=== PATIENT | female | born 1965 | race Caucasian/White ===

== ENCOUNTER 2016-07-15 05:49 | Emergency (ER) | payer SELFPAY ==
[2016-07-15] MEDS ORDERED: LIDOCAINE 1% INJ-PF (10 MG/ML) 30 ML SDV INJ ONE (07:05)
--- NOTE | 2016-07-15 07:19 | ER Document Report ---
ED General - General Chief Complaint: Abscess Stated Complaint: FACE PAIN Mode of Arrival: Ambulatory Information source: Patient Notes: 51 yr old female presents with complaints of left facial abscess that started over the past 2-3 days. Pt notes she has had multiple outbreaks all over her skin, noted the one of the face has gotten larger. pt denies any fevers or chills TRAVEL OUTSIDE OF THE [place] IN LAST 30 DAYS: No - HPI Onset: Last week Onset/Duration: Persistent Quality of pain: Achy Severity: Mild Pain Level: 1 Associated symptoms: Other Exacerbated by: Denies Relieved by: Denies Similar symptoms previously: No Recently seen / treated by doctor: No - Related Data Allergies/Adverse Reactions: ciprofloxacin [From Cipro] Allergy (Verified 03/22/16 12:02) ciprofloxacin HCl [From Cipro] Allergy (Verified 03/22/16 12:02) gabapentin [Gabapentin] Allergy (Verified 03/22/16 12:02) ketorolac tromethamine [From Toradol] Allergy (Verified 03/22/16 12:02) pregabalin [From Lyrica] Allergy (Verified 03/22/16 12:02) Past Medical History - Social History Smoking Status: Current Every Day Smoker Cigarette use (# per day): Yes Chew tobacco use (# tins/day): No Smoking Education Provided: Yes - Patient counselled regarding cessation for 4 minutes Frequency of alcohol use: Rare Drug Abuse: None Family History: Reviewed & Not Pertinent Patient has suicidal ideation: No Patient has homicidal ideation: No - Past Medical History Cardiac Medical History: Reports: Hx Hypertension Endocrine Medical History: Reports: Hx Diabetes Mellitus Type 2 Renal/ Medical History: Denies: Hx Peritoneal Dialysis Musculoskeltal Medical History: Reports Hx Fibromyalgia Psychiatric Medical History: Reports: Hx Anxiety Past Surgical History: Reports: Hx Section - x2, Hx Hysterectomy, Hx Orthopedic Surgery - Right Knee - Immunizations Hx Diphtheria, Pertussis, Tetanus Vaccination: Yes Review of Systems - Review of Systems Notes: REVIEW OF SYSTEMS: CONSTITUTIONAL : Denies fever, chills, or sweats. Denies recent illness. EENT: Denies eye, ear, throat, or mouth pain or symptoms. Denies nasal or sinus congestion or discharge. Denies throat, tongue, or mouth swelling or difficulty swallowing. CARDIOVASCULAR: Denies chest pain. Denies palpitations or racing or irregular heart beat. Denies ankle edema. RESPIRATORY: Denies cough, cold, or chest congestion. Denies shortness of breath, difficulty breathing, or wheezing. GASTROINTESTINAL: Denies abdominal pain or distention. Denies nausea, vomiting , or diarrhea. Denies blood in vomitus, stools, or per rectum. Denies black, tarry stools. Denies constipation. GENITOURINARY: Denies difficulty urinating, painful urination, burning, frequency, blood in urine, or discharge. FEMALE GENITOURINARY: Denies vaginal bleeding, heavy or abnormal periods, irregular periods. Denies vaginal discharge or odor. MUSCULOSKELETAL: Denies back or neck pain or stiffness. Denies joint pain or swelling. SKIN: Admits to rash facial swelling HEMATOLOGIC : Denies easy bruising or bleeding. LYMPHATIC: Denies swollen, enlarged glands. NEUROLOGICAL: Denies confusion or altered mental status. Denies passing out or loss of consciousness. Denies dizziness or lightheadedness. Denies headache. Denies weakness or paralysis or loss of use of either side. Denies problems with gait or speech. Denies sensory loss, numbness, or tingling. Denies seizures. PSYCHIATRIC: Denies anxiety or stress. Denies depression, suicidal ideation, or homicidal ideation. ALL OTHER SYSTEMS REVIEWED AND NEGATIVE. Dictation was performed using [employer] voice recognition software PHYSICAL EXAMINATION: GENERAL: Well-appearing, well-nourished and in no acute distress. EYES: Pupils equal round and reactive to light, extraocular movements intact, conjunctiva are normal. ENT: Nares patent, oropharynx clear without exudates. Moist mucous membranes. NECK: Normal range of motion, supple without lymphadenopathy LUNGS: Breath sounds clear to auscultation bilaterally and equal. No wheezes rales or rhonchi. HEART: Regular rate and rhythm without murmurs ABDOMEN: Soft, nontender, nondistended abdomen. No guarding, no rebound. No masses appreciated. Female : deferred Musculoskeletal: Normal range of motion, no pitting or edema. No cyanosis. NEUROLOGICAL: Cranial nerves grossly intact. Normal speech, normal gait. Normal sensory, motor exams PSYCH: Normal mood, normal affect. SKIN: Multiple areas of excoriation all throughout the body with left facial abscess measuring 3 x 4 cm left anterior cervical lymph node noted mobile 1 x 1 mm Physical Exam - Vital signs Vitals: Temp Pulse Resp BP Pulse Ox 98.7 F 79 16 145/75 H 95 07/15/16 06:01 07/15/16 06:01 07/15/16 06:01 07/15/16 06:01 07/15/16 06:01 Course - Re-evaluation Re-evalutation: 07/15/16 07:17 With patient's consent area will be anesthetized incised and patient will be started on antibiotics 07/15/16 07:33 After performing a Medical Screening Examination, I estimate there is LOW risk for OPEN FRACTURE, COMPARTMENT SYNDROME, TENDON RUPTURE, ACUTE NEUROVASCULAR INJURY, or RETAINED FOREIGN BODY, thus I consider the discharge disposition reasonable. Also, there is no evidence or peritonitis, sepsis, or toxicity. The patient and I have discussed the diagnosis and risks, and we agree with discharging home with close follow-up with the understanding that symptoms and presentations can change. We also discussed returning to the Emergency Department immediately if new or worsening symptoms occur. We have discussed the symptoms which are most concerning (e.g., changing or worsening pain, fever , numbness, weakness, cool or painful digits) that necessitate immediate return. - Vital Signs Vital signs: Temp Pulse Resp BP Pulse Ox 98.7 F 79 16 145/75 H 95 07/15/16 06:01 07/15/16 06:01 07/15/16 06:01 07/15/16 06:01 07/15/16 06:01 Procedures - Incision and Drainage Left Face Time completed: 07:30 Type: Simple Anesthetic type: 1% Lidocaine mL's of anesthetic: 5 Blade size: 11 I&D procedure: Sterile dressing applied Incision Method: Incision made by scalpel Amount/type of drainage: small pus with blood Discharge - Discharge Clinical Impression: Encounter for smoking cessation counseling, Facial abscess Condition: Stable Disposition: HOME, SELF-CARE Instructions: Abscess ([facility]) Additional Instructions: Follow-up in 2-3 days for reevaluation by her primary care physician or the emergency department or return immediately if there is any worsening symptoms Prescriptions: Cephalexin Monohydrate [Keflex 500 mg Capsule] 500 mg PO QID #40 capsule Mupirocin Calcium [Bactroban Nasal] 1 gm NS BID 10 Days Sulfamethoxazole/Trimethoprim [Bactrim Ds Tablet] 2 each PO BID #40 tablet
[2016-07-15] MEDS ORDERED: OXYCODONE-ACETAMINOPHEN 5-325 MG TABLET PO ONE (07:32)
[2016-07-15 07:39] VITALS: BP 154/79
== END 2016-07-15 07:48 | disposition home or self-care (01) ==
LOC: ER 05:49
PROC: 0H91XZZ Drainage of Face Skin, External Approach (ICD-10-PCS; principal; 2016-07-15)
DX: L02.01 Cutaneous abscess of face (principal); F17.210 Nicotine dependence, cigarettes, uncomplicated; I10 Essential (primary) hypertension; E11.9 Type 2 diabetes mellitus without complications; Z88.3 Allergy status to other anti-infective agents; Z90.710 Acquired absence of both cervix and uterus
CPT/HCPCS: 99406; 99283; 10060; J3490

== ENCOUNTER 2016-10-14 15:14 | Emergency (ER) | payer SELFPAY ==
[2016-10-14 15:19] VITALS: BP 138/75
[2016-10-14] MEDS ORDERED: NORMAL SALINE 1000 ML 1,000 ML IV PRN (16:41)
[2016-10-14] MEDS ORDERED: ONDANSETRON 4 MG TAB.RAPDIS PO ONE (16:42)
[2016-10-14] MEDS ORDERED: MORPHINE SULFATE 10 MG/ML INJ IV PRN (16:43)
--- NOTE | 2016-10-14 16:44 | ER Document Report ---
ED Medical Screen (RME) - General Chief Complaint: Abdominal Pain Stated Complaint: ABDOMINAL PAIN Time Seen by Provider: 10/14/16 16:38 Mode of Arrival: Ambulatory Information source: Patient Notes: This is a 51-year-old female with a history of hypertension, diabetes, fibromyalgia presents to the emergency room with a 2 day history of left CVA and lower abdominal tenderness. Patient denies fever, chills. She had nausea and vomiting. She denies any blood in the stool. TRAVEL OUTSIDE OF THE [place] IN LAST 30 DAYS: No - Related Data Allergies/Adverse Reactions: ciprofloxacin [From Cipro] Allergy (Verified 10/14/16 15:16) ciprofloxacin HCl [From Cipro] Allergy (Verified 10/14/16 15:16) gabapentin [Gabapentin] Allergy (Verified 10/14/16 15:16) ketorolac tromethamine [From Toradol] Allergy (Verified 10/14/16 15:16) pregabalin [From Lyrica] Allergy (Verified 10/14/16 15:16) Past Medical History - Past Medical History Cardiac Medical History: Reports: Hx Hypertension Endocrine Medical History: Reports: Hx Diabetes Mellitus Type 2 Renal/ Medical History: Denies: Hx Peritoneal Dialysis Musculoskeltal Medical History: Reports Hx Fibromyalgia Psychiatric Medical History: Reports: Hx Anxiety Past Surgical History: Reports: Hx Section - x2, Hx Hysterectomy, Hx Orthopedic Surgery - Right Knee - Immunizations Hx Diphtheria, Pertussis, Tetanus Vaccination: Yes Physical Exam - Vital signs Vitals: Temp Pulse Resp BP Pulse Ox 98.1 F 80 20 138/75 H 98 10/14/16 15:16 10/14/16 15:16 10/14/16 15:16 10/14/16 15:16 10/14/16 15:16 Course - Vital Signs Vital signs: Temp Pulse Resp BP Pulse Ox 98.1 F 80 20 138/75 H 98 10/14/16 15:16 10/14/16 15:16 10/14/16 15:16 10/14/16 15:16 10/14/16 15:16
[2016-10-14 17:35] LABS: ABSOLUTE BASOPHILS # (AUTO) 0.1 10^3/uL (0.0-0.2); ABSOLUTE EOSINOPHILS # (AUTO) 0.1 10^3/uL (0.0-0.6); ABSOLUTE LYMPHOCYTES (AUTO) 2.2 10^3/uL (0.5-4.7); ABSOLUTE MONOCYTES (AUTO) 0.3 10^3/uL (0.1-1.4); ABSOLUTE NEUT (AUTO) 6.9 10^3/uL (1.7-8.2); BASOPHILS % (AUTO) 0.6 % (0-2); EOSINOPHILS % (AUTO) 0.6 % (0-6); HEMATOCRIT 49.8 % (36.0-47.0); HGB HCT DIFFERENCE 1.2; LYMPHOCYTES % (AUTO) 22.8 % (13-45); MEAN CORPUSCULAR HEMOGLOBIN 32.9 pg (27.0-33.4); MEAN CORPUSCULAR HGB CONC 34.2 g/dL (32.0-36.0); MEAN CORPUSCULAR VOLUME 96 fl (80-97); MONOCYTES % (AUTO) 3.4 % (3-13); RED BLOOD COUNT 5.18 10^6/uL (3.72-5.28); SEGMENTED NEUTROPHILS % (AUTO) 72.6 % (42-78); WHITE BLOOD COUNT 9.5 10^3/uL (4.0-10.5)
[2016-10-14 17:41] LABS: APPEARANCE,URINE SLIGHTLY-CLOUDY; BILIRUBIN,URINE NEGATIVE (NEGATIVE); GLUCOSE, URINE NEGATIVE (NEGATIVE); KETONES,URINE TRACE mg/dL (NEGATIVE); LEUKOCYTE ESTERASE,URINE NEGATIVE (NEGATIVE); NITRITE,URINE NEGATIVE (NEGATIVE); PROTEIN,URINE NEGATIVE (NEGATIVE); URINE SPECIFIC GRAVITY 1.028; UROBILINOGEN,URINE NEGATIVE mg/dL (<2.0)
--- NOTE | 2016-10-14 18:39 | ER Document Report ---
ED GI/ - General Chief Complaint: Abdominal Pain Stated Complaint: ABDOMINAL PAIN Time Seen by Provider: 10/14/16 16:38 Mode of Arrival: Ambulatory Notes: Patient is a 51-year-old female, past medical history fibromyalgia, uterine cancer status post complete hysterectomy and oophrectomy, presents with 1 day of left flank pain radiating into her groin. She has had this in the past and no cause was found. She is taking oxycodone 10 mg 4 times a day for her chronic fibromyalgia pain, but she said that this is not helping her pain today. She denies hematuria, fevers, nausea, vomiting, diarrhea, constipation, chest pain or shortness of breath. TRAVEL OUTSIDE OF THE [place] IN LAST 30 DAYS: No - Related Data Allergies/Adverse Reactions: ciprofloxacin [From Cipro] Allergy (Verified 10/14/16 15:16) ciprofloxacin HCl [From Cipro] Allergy (Verified 10/14/16 15:16) gabapentin [Gabapentin] Allergy (Verified 10/14/16 15:16) ketorolac tromethamine [From Toradol] Allergy (Verified 10/14/16 15:16) pregabalin [From Lyrica] Allergy (Verified 10/14/16 15:16) Past Medical History - General Information source: Patient - Social History Smoking Status: Unknown if Ever Smoked Family History: Reviewed & Not Pertinent Patient has suicidal ideation: No Patient has homicidal ideation: No - Past Medical History Cardiac Medical History: Reports: Hx Hypertension Endocrine Medical History: Reports: Hx Diabetes Mellitus Type 2 Renal/ Medical History: Denies: Hx Peritoneal Dialysis Musculoskeltal Medical History: Reports Hx Fibromyalgia Psychiatric Medical History: Reports: Hx Anxiety Past Surgical History: Reports: Hx Section - x2, Hx Hysterectomy, Hx Orthopedic Surgery - Right Knee - Immunizations Hx Diphtheria, Pertussis, Tetanus Vaccination: Yes Review of Systems - Review of Systems Notes: REVIEW OF SYSTEMS: CONSTITUTIONAL: -fevers, -chills EENT: -eye pain, -difficulty swallowing, -nasal congestion CARDIOVASCULAR:-chest pain, -syncope. RESPIRATORY: -cough, -SOB GASTROINTESTINAL: +abdominal pain, - nausea, -vomiting, -diarrhea GENITOURINARY: -dysuria, -hematuria MUSCULOSKELETAL: +left flank pain, -neck pain SKIN: -rash or skin lesions. HEMATOLOGIC: -easy bruising or bleeding. LYMPHATIC: -swollen, enlarged glands. NEUROLOGICAL: -altered mental status or loss of consciousness, -headache, - neurologic symptoms PSYCHIATRIC: -anxiety, -depression. ALL OTHER SYSTEMS REVIEWED AND NEGATIVE. Physical Exam - Vital signs Vitals: Temp Pulse Resp BP Pulse Ox 98.1 F 80 20 138/75 H 98 10/14/16 15:16 10/14/16 15:16 10/14/16 15:16 10/14/16 15:16 10/14/16 15:16 - Notes Notes: PHYSICAL EXAMINATION: GENERAL: Well-appearing, well-nourished and in no acute distress. HEAD: Atraumatic, normocephalic. EYES: Pupils equal round and reactive to light, extraocular movements intact, sclera anicteric, conjunctiva are normal. ENT: nares patent, oropharynx clear without exudates. Moist mucous membranes. NECK: Normal range of motion, supple without lymphadenopathy LUNGS: Breath sounds clear to auscultation bilaterally and equal. No wheezes rales or rhonchi. HEART: Regular rate and rhythm without murmurs ABDOMEN: Soft, nontender, normoactive bowel sounds. No guarding, no rebound. No masses appreciated. EXTREMITIES: Normal range of motion, no pitting or edema. No cyanosis. NEUROLOGICAL: Cranial nerves grossly intact. Normal speech, normal gait. Normal sensory and motor exams. PSYCH: Normal mood, normal affect. SKIN: Warm, Dry, normal turgor, no rashes or lesions noted. Course - Re-evaluation Re-evalutation: Patient with left flank pain radiating into groin. Her labs, urine and CT abdomen pelvis do not show any evidence of stones or other acute processes. Will provide patient with Bentyl to help with any spasming and have her follow- up with her primary care physician. She has oxycodone at home that she takes. Pt has received a letter from the ER about narcotic prescribing guidelines. Will also provide her with Zofran to help with any nausea. - Vital Signs Vital signs: Temp Pulse Resp BP Pulse Ox 98.1 F 80 20 138/75 H 98 10/14/16 15:16 10/14/16 15:16 10/14/16 15:16 10/14/16 15:16 10/14/16 15:16 - Laboratory Result Diagrams: 10/14/16 17:15 10/14/16 18:11 Laboratory results interpreted by me: 10/14/16 10/14/16 10/14/16 17:15 17:15 18:11 Hgb 17.0 H Hct 49.8 H Glucose 158 H Urine Ketones TRACE H - Diagnostic Test Radiology reviewed: Image reviewed, Reports reviewed Radiology results interpreted by me: CT A/P: NAD Discharge - Discharge Clinical Impression: Abdominal pain Qualifiers: Abdominal location: unspecified location Qualified Code(s): R10.9 - Unspecified abdominal pain Condition: Stable Disposition: HOME, SELF-CARE Additional Instructions: Your labs, urine and CAT scan did not show any evidence of emergent processes today. You must follow-up with your primary care physician for further evaluation and treatment. You may take Bentyl to help with any abdominal pain and Zofran to help with any nausea and vomiting. ABDOMINAL PAIN: There are many causes of abdominal pain. Pain can mean a serious problem requiring surgery (such as appendicitis). It can also be an innocent problem that goes away on its own (such as a viral infection). Often, time must pass to determine the cause of pain. The physician does not feel that hospitalization is necessary, at present. Things may change within the next 24 hours. Call the doctor or come back for re- examination if any problems occur, such as: (1) Pain that becomes more severe, steady, or becomes concentrated in one specific area. Also, pain that is more severe with movement or coughing. (2) Vomiting that persists or becomes more frequent. (3) Blood in the vomitus, urine, or bowel movements. Blood in the stool may have a tarry or black appearance. (4) Shaking chills or fever greater than 100 degrees F. (5) The abdomen becomes more distended or swollen. (6) Bowel movements cease. (7) Failure to improve as expected. NORMAL EXAM AND WORKUP: At this time, your examination and workup show no significant abnormality. No significant abnormal physical findings are noted. All laboratory, EKG, and imaging (x-ray, CT scans, ultrasound) studies that were ordered show no significant abnormality. Although your examination and all studies that were ordered showed no significant abnormal finding, there are no examinations and no studies that are 100% accurate. There is always the possibility that some abnormality could exist and not be detected with physical examination or within the limits and capabilities of laboratory and other studies. You should return or follow up as you were instructed on your visit today for further evaluation if your symptoms do not resolve. PAIN MEDICATION INJECTION: You have received an injection of a pain medication. You should experience significant pain relief within 45 minutes. This drug is a narcotic - - it will impair your judgement, slow your reaction time and make you sleepy ( as well as relieve your pain). Narcotics also can cause nausea. You should not drive, work with machinery, or perform any task requiring mental alertness until all effects of the medication are gone -- six to eight hours. Do not take any alcohol, or sedatives, and do not take any other medication without checking with your physician. ANTINAUSEA MEDICATION: You have been given a medication to suppress nausea and vomiting. This type of medication can be given as a shot, pill, or suppository. It will usually last for many hours. Pills and shots usually last six to eight hours, suppositories last about 12 hours. For the typical illness, only one or two doses of the medication may be necessary. Mild lightheadedness may occur. This type of medicine can cause drowsiness. Do not drive or operate dangerous machinery while under its influence. Do not mix with alcohol. See your doctor at once if you have muscle spasms or tightness, or uncontrollable motions (particularly of the neck, mouth, or jaw). Persistent vomiting or severe lightheadedness should also be evaluated by the physician. ANTISPASMODICS: You have been given a prescription for an antispasmodic medicine. This type of drug is used to decrease cramping and pain in the intestines. It is also used to decrease secretion of internal fluids (such as stomach acid in ulcer disease or pancreatic juice in pancreas disease). This medicine may cause drowsiness, especially with the first dose. Do not operate machinery or drive until all side effects have resolved. Do not combine with alcohol. Other common side effects include dry mouth and eyes. In older persons, antispasmodics can occasionally cause urinary retention, constipation, or trouble focusing the eyes. Glaucoma may be worsened by this medicine. FOLLOW-UP CARE: If you have been referred to a physician for follow-up care, call the physician s office for an appointment as you were instructed or within the next two days. If you experience worsening or a significant change in your symptoms, notify the physician immediately or return to the Emergency Department at any time for re-evaluation. Prescriptions: Dicyclomine HCl [Bentyl 20 mg Tablet] 20 mg PO QID #20 tablet Ondansetron [Zofran Odt 4 mg Tablet] 1 - 2 tab PO Q4H PRN #15 tab.rapdis PRN Reason: For Nausea/Vomiting Referrals: JET SLADE MD [ACTIVE STAFF] - Follow up as needed
[2016-10-14 18:45] LABS: ALANINE AMINOTRANSFERASE 31 U/L (9-52); ALBUMIN 4.1 g/dL (3.5-5.0); ALKALINE PHOSPHATASE 61 U/L (38-126); ANION GAP 11 (5-19); ASPARTATE AMINO TRANSFERASE 27 U/L (14-36); BILIRUBIN,DIRECT 0.4 mg/dL (0.0-0.4); BILIRUBIN,TOTAL 0.8 mg/dL (0.2-1.3); BLOOD UREA NITROGEN 13 mg/dL (7-20); CALCIUM 9.6 mg/dL (8.4-10.2); CARBON DIOXIDE 24 mmol/L (22-30); CHLORIDE 105 mmol/L (98-107); CREATININE RESULT 0.85 mg/dL (0.52-1.25); GLUCOSE 158 mg/dL (75-110); LIPASE 200.9 U/L (23-300); POTASSIUM 4.8 mmol/L (3.6-5.0); SODIUM 139.8 mmol/L (137-145); TOTAL PROTEIN 7.2 g/dL (6.3-8.2)
[2016-10-14] MEDS ORDERED: MORPHINE SULFATE 10 MG/ML INJ IV ONE (19:04)
--- NOTE | 2016-10-14 19:13 | RADIOLOGY REPORT (SQ) ---
EXAM DESCRIPTION: CT ABD/PELVIS NO ORAL OR IV COMPLETED DATE/TIME: 10/14/2016 6:59 pm REASON FOR STUDY: left flank pain, Hx stones COMPARISON: 04/01/2016 TECHNIQUE: CT scan of the abdomen and pelvis performed without intravenous or oral contrast. Images reviewed with lung, soft tissue, and bone windows. Reconstructed coronal and sagittal MPR images revi ewed. All images stored on PACS. All CT scanners at this facility use dose modulation, iterative reconstruction, and/or weight based d osing when appropriate to reduce radiation dose to as low as reasonably achievable (ALARA). [facility]: Dose Right [facility]: CareDose [facility]: Dose Right [facility]: Teradose 4D [facility]: Smart Traity RADIATION DOSE: Up-to-date CT equipment and radiation dose reduction techniques were employed. CTDIv ol: 20.4 mGy. DLP: 1144 mGy-cm.mGy. LIMITATIONS: None. FINDINGS: LOWER CHEST: No significant findings. No nodules or infiltrates. NON-CONTRASTED LIVER, SPLEEN, ADRENALS: Evaluation limited by lack of IV contrast. No identified sign ificant masses. PANCREAS: No masses. No peripancreatic inflammatory changes. GALLBLADDER: No identified stones by CT criteria. No inflammatory changes to suggest cholecystitis. RIGHT KIDNEY AND URETER: No suspicious masses. Assessment limited by lack of IV contrast. No signif icant calcifications. No hydronephrosis or hydroureter. LEFT KIDNEY AND URETER: No suspicious masses. Assessment limited by lack of IV contrast. No signifi cant calcifications. No hydronephrosis or hydroureter. AORTA AND RETROPERITONEUM: No aneurysm. No retroperitoneal masses or adenopathy. BOWEL AND PERITONEAL CAVITY: No obvious masses or inflammatory changes. No free fluid. APPENDIX: Normal. PELVIS, BLADDER, AND ABDOMINAL WALL:Prior hysterectomy. No free fluid. Bladder normal. BONES: No acute findings. OTHER: No other significant finding. IMPRESSION: NO ACUTE PROCESS IN THE ABDOMEN OR PELVIS. TECHNICAL DOCUMENTATION: JOB ID: [id number] Quality ID # [id number]: Final reports with documentation of one or more dose reduction techniques (e.g., Au tomated exposure control, adjustment of the mA and/or kV according to patient size, use of iterative reconstruction technique) 2010 [facility]- All Rights Reserved
== END 2016-10-14 19:25 | disposition home or self-care (01) ==
LOC: ER 15:14
DX: R10.9 Unspecified abdominal pain (principal); M79.7 Fibromyalgia
CPT/HCPCS: 96376; 99284; 96361; 96374; 36415; 83690; 85025; 80053; 81001; 74176; S0119; J2270; J7030

== ENCOUNTER 2016-10-17 06:26 | Emergency (ER) | payer SELFPAY ==
--- NOTE | 2016-10-17 07:03 | ER Document Report ---
ED General - General Mode of Arrival: Ambulatory Information source: Patient TRAVEL OUTSIDE OF THE [place] IN LAST 30 DAYS: No - HPI Onset: Other - see narrative Associated symptoms: Nausea Similar symptoms previously: Yes Recently seen / treated by doctor: Yes - General Chief Complaint: Flank Pain Stated Complaint: LEFT FLANK/BACK PAIN Time Seen by Provider: 10/17/16 06:41 Notes: Patient is a 51-year-old female with a history of fibromyalgia, uterine cancer status post complete hysterectomy/oophorectomy, and chronic pain who presents to the emergency department today with complaints of four days of left-sided back pain which is described as "labor pain". Patient was seen in this emergency department 3 days ago for this same complaint and had an extensive workup done including labs, urine, CT all of which were negative. Patient states she did not follow up with her family doctor as instructed because she "does not have insurance and can only see her once a month". Patient is on 30 mg of oxycodone daily which she states is "not enough to control this pain". Patient states she cannot take Toradol because when she has taken it in the past it "caused shortness of breath and heart palpitations". Patient states she feels nauseated but denies vomiting. Patient denies any trauma to the area. (JACK JAMISON) - Related Data Allergies/Adverse Reactions: ciprofloxacin [From Cipro] Allergy (Verified 10/14/16 15:16) ciprofloxacin HCl [From Cipro] Allergy (Verified 10/14/16 15:16) gabapentin [Gabapentin] Allergy (Verified 10/14/16 15:16) ketorolac tromethamine [From Toradol] Allergy (Verified 10/14/16 15:16) pregabalin [From Lyrica] Allergy (Verified 10/14/16 15:16) Past Medical History - General Information source: Patient, [facility] Records - Social History Smoking Status: Unknown if Ever Smoked Frequency of alcohol use: None Drug Abuse: None Family History: Reviewed & Not Pertinent - Past Medical History Cardiac Medical History: Reports: Hx Hypertension Endocrine Medical History: Reports: Hx Diabetes Mellitus Type 2 Malignancy Medical History: Reports: Other - uterine cancer Musculoskeltal Medical History: Reports Hx Fibromyalgia Psychiatric Medical History: Reports: Hx Anxiety Past Surgical History: Reports: Hx Section - x2, Hx Hysterectomy - Oophorectomy, Hx Orthopedic Surgery - Right Knee - Immunizations Hx Diphtheria, Pertussis, Tetanus Vaccination: Yes Review of Systems - Review of Systems Constitutional: No symptoms reported EENT: No symptoms reported Cardiovascular: No symptoms reported Respiratory: No symptoms reported Gastrointestinal: See HPI, Nausea. denies: Vomiting Genitourinary: See HPI, Flank pain - left Female Genitourinary: No symptoms reported Musculoskeletal: See HPI, Back pain - left Skin: No symptoms reported Hematologic/Lymphatic: No symptoms reported Neurological/Psychological: No symptoms reported -: Yes All other systems reviewed and negative Physical Exam - Vital signs Vitals: Temp Pulse Ox 97.5 F 98 10/17/16 06:44 10/17/16 06:44 - Notes Notes: Physical Exam: General: Alert. HEENT: Normocephalic. Atraumatic. PERRL. Extraocular movements intact. Oropharynx clear. Neck: Supple. Non-tender. Respiratory: No respiratory distress. Clear and equal breath sounds bilaterally. Cardiovascular: Regular rate and rhythm. Abdominal: Obese. Non-tender. No distension. Normal Bowel Sounds. Back: Non-tender. No deformity or step off. No midline tenderness with palpation. Negative Robson's test. Minimal left sided paraspinal musculature tenderness with palpation. Extremities: Moves all four extremities. Upper extremities: Normal inspection. Normal ROM. Lower extremities: Normal inspection. No edema. Normal ROM. Neurological: Normal cognition. AAOx4. Normal speech. Psychological: Normal affect. Normal Mood. Skin: Warm. Dry. Normal color. No rashes appreciated. (JACK JAMISON) Discharge - Discharge Clinical Impression: Back pain, History of chronic pain on opioids Condition: Stable Disposition: HOME, SELF-CARE Additional Instructions: Flank Pain We weren't able to prove an exact cause for your flank pain. Pain in the flank can be caused by a muscle strain or spasm. Sometimes a kidney stone causes pain, but can't be found on our tests. Infection in the kidney should be evident on a urine test. Early shingles can occasionally cause flank pain, without the rash that proves the diagnosis. On rare occasions, disease of the pancreas, aorta, spleen, or colon can create pain in the flank. At this time, there's no evidence of a dangerous condition, and it seems safe for you to be at home. If the pain goes away and does not come back, no further testing will be needed. If pain persists, or becomes more severe, we may need to repeat some tests or order additional new testing. Blood in the urine, urgency to urinate frequently, and pain that radiates to the groin can indicate a kidney stone. Fever may mean that the pain is due to infection, either of the kidney or the colon (diverticulitis). If your pain is early shingles, you should develop an eruption of blisters in the painful area within a few days. Call the doctor or return if you have pain that is spreading or becoming more severe, pain that does not resolve with time, fever, or any other new symptoms. Prescriptions: Cyclobenzaprine HCl [Flexeril 10 mg Tablet] 10 mg PO TIDP PRN #15 tab PRN Reason: Lidocaine [Lidoderm 5% (700 mg) Transdermal Patch] 1 patch TP DAILY #15 adh..patch Forms: Elevated Blood Pressure Scribe Attestation: 10/17/16 07:15 I personally performed the services described in the documentation reviewed the documentation recorded by my scribe in my presence and it accurately and completely records my words and actions (CHERELLE GA) Scribe Documentation - Scribe Written by Willam:: Willam Mckeon, 10/17/2016 0758 acting as scribe for :: Mundo
[2016-10-17] MEDS ORDERED: METOCLOPRAMIDE HCL 10 MG TABLET PO ONE (07:10)
[2016-10-17] MEDS ORDERED: ATENOLOL 50 MG TABLET PO ONE (07:10)
[2016-10-17] MEDS ORDERED: CYCLOBENZAPRINE HCL 10 MG TABLET PO ONE (07:11)
[2016-10-17 07:38] VITALS: BP 133/72
== END 2016-10-17 07:37 | disposition home or self-care (01) ==
LOC: ER 06:26
DX: M54.9 Dorsalgia, unspecified (principal); G89.29 Other chronic pain; R10.9 Unspecified abdominal pain
CPT/HCPCS: 99283

== ENCOUNTER 2016-10-17 08:07 | Emergency (ER) | payer SELFPAY ==
[2016-10-17 08:31] VITALS: BP 149/86
[2016-10-17 08:56] LABS: ABSOLUTE BASOPHILS # (AUTO) 0.1 10^3/uL (0.0-0.2); ABSOLUTE EOSINOPHILS # (AUTO) 0.1 10^3/uL (0.0-0.6); ABSOLUTE LYMPHOCYTES (AUTO) 2.6 10^3/uL (0.5-4.7); ABSOLUTE MONOCYTES (AUTO) 0.3 10^3/uL (0.1-1.4); ABSOLUTE NEUT (AUTO) 4.4 10^3/uL (1.7-8.2); BASOPHILS % (AUTO) 0.8 % (0-2); EOSINOPHILS % (AUTO) 1.1 % (0-6); HEMATOCRIT 44.6 % (36.0-47.0); HEMOGLOBIN 15.1 g/dL (12.0-15.5); HGB HCT DIFFERENCE 0.7; MEAN CORPUSCULAR HEMOGLOBIN 32.7 pg (27.0-33.4); MEAN CORPUSCULAR HGB CONC 33.7 g/dL (32.0-36.0); MEAN CORPUSCULAR VOLUME 97 fl (80-97); MONOCYTES % (AUTO) 4.3 % (3-13); RED CELL DISTRIBUTION WIDTH 13.2 % (11.5-14.0); SEGMENTED NEUTROPHILS % (AUTO) 58.8 % (42-78); WHITE BLOOD COUNT 7.5 10^3/uL (4.0-10.5)
[2016-10-17 09:15] LABS: ALANINE AMINOTRANSFERASE 23 U/L (9-52); ALKALINE PHOSPHATASE 64 U/L (38-126); ANION GAP 9 (5-19); ASPARTATE AMINO TRANSFERASE 16 U/L (14-36); BILIRUBIN,DIRECT 0.3 mg/dL (0.0-0.4); BILIRUBIN,TOTAL 0.5 mg/dL (0.2-1.3); BLOOD UREA NITROGEN 14 mg/dL (7-20); CALCIUM 9.5 mg/dL (8.4-10.2); CARBON DIOXIDE 29 mmol/L (22-30); CHLORIDE 102 mmol/L (98-107); CREATINE KINASE 28 U/L (30-135); GLUCOSE 157 mg/dL (75-110); POTASSIUM 4.4 mmol/L (3.6-5.0); SODIUM 139.7 mmol/L (137-145); TOTAL PROTEIN 7.4 g/dL (6.3-8.2)
[2016-10-17 09:26] LABS: CREATINE KINASE MB 0.22 ng/mL (<4.55)
[2016-10-17 09:27] LABS: TROPONIN I < 0.012 ng/mL
--- NOTE | 2016-10-17 09:28 | RADIOLOGY REPORT (SQ) ---
EXAM DESCRIPTION: CHEST SINGLE VIEW COMPLETED DATE/TIME: 10/17/2016 9:12 am REASON FOR STUDY: CHEST PAIN COMPARISON: None. EXAM PARAMETERS: NUMBER OF VIEWS: One view. TECHNIQUE: Single frontal radiographic view of the chest acquired. RADIATION DOSE: NA LIMITATIONS: None. FINDINGS: LUNGS AND PLEURA: No opacities, masses or pneumothorax. No pleural effusion. MEDIASTINUM AND HILAR STRUCTURES: No masses. Contour normal. HEART AND VASCULAR STRUCTURES: Heart normal in size. Normal vasculature. BONES: No acute findings. HARDWARE: None in the chest. OTHER: No other significant finding. IMPRESSION: NO ACUTE RADIOGRAPHIC FINDING IN THE CHEST. TECHNICAL DOCUMENTATION: JOB ID: [id number]
--- NOTE | 2016-10-17 09:53 | ER Document Report ---
ED Medical Screen (RME) - General Chief Complaint: Chest Pain Stated Complaint: CHEST PAIN Time Seen by Provider: 10/17/16 09:43 TRAVEL OUTSIDE OF THE [place] IN LAST 30 DAYS: No - HPI Notes: 10/17/16 09:53 Patient seen earlier this morning for flank pain discharge. Patient returning after experiencing left-sided tingling and neck pain. Increased with movement - Related Data Allergies/Adverse Reactions: ciprofloxacin [From Cipro] Allergy (Verified 10/14/16 15:16) ciprofloxacin HCl [From Cipro] Allergy (Verified 10/14/16 15:16) gabapentin [Gabapentin] Allergy (Verified 10/14/16 15:16) ketorolac tromethamine [From Toradol] Allergy (Verified 10/14/16 15:16) pregabalin [From Lyrica] Allergy (Verified 10/14/16 15:16) Past Medical History - Social History Chew tobacco use (# tins/day): No Frequency of alcohol use: None Drug Abuse: None - Past Medical History Cardiac Medical History: Reports: Hx Hypertension Endocrine Medical History: Reports: Hx Diabetes Mellitus Type 2 Renal/ Medical History: Denies: Hx Peritoneal Dialysis Musculoskeltal Medical History: Reports Hx Fibromyalgia Psychiatric Medical History: Reports: Hx Anxiety Past Surgical History: Reports: Hx Section - x2, Hx Hysterectomy, Hx Orthopedic Surgery - Right Knee - Immunizations Hx Diphtheria, Pertussis, Tetanus Vaccination: Yes Review of Systems - Review of Systems Cardiovascular: Other - left arm tingling chest wall pain Physical Exam - Vital signs Vitals: Temp Pulse Resp BP Pulse Ox 97.9 F 56 L 14 149/86 H 95 10/17/16 08:27 10/17/16 08:27 10/17/16 08:27 10/17/16 08:27 10/17/16 08:27 - Cardiovascular Rhythm: Regular Heart sounds: Normal auscultation Course - Vital Signs Vital signs: Temp Pulse Resp BP Pulse Ox 97.9 F 56 L 14 149/86 H 95 10/17/16 08:27 10/17/16 08:27 10/17/16 08:27 10/17/16 08:27 10/17/16 08:27 - Laboratory Result Diagrams: 10/17/16 08:35 10/17/16 08:35 Laboratory results interpreted by me: 10/17/16 08:35 Glucose 157 H Creatine Kinase 28 L
[2016-10-17] MEDS ORDERED: ACETAMINOPHEN 325 MG TABLET PO ONE (10:13)
--- NOTE | 2016-10-17 17:39 | EKG REPORT ---
SEVERITY:- NORMAL ECG - SINUS RHYTHM : Confirmed by: Vandana Brown 17-Oct-2016 17:38:25
== END 2016-10-17 09:58 | disposition left against medical advice (07) ==
LOC: ER 08:07
DX: Z53.9 Procedure and treatment not carried out, unspecified reason (principal); R07.9 Chest pain, unspecified; R10.9 Unspecified abdominal pain; M54.2 Cervicalgia
CPT/HCPCS: 36415; 71010; 80053; 82550; 82553; 84484; 85025; 93005; 93010; 99281

== ENCOUNTER 2017-02-17 06:21 | Emergency (ER) | payer SELFPAY ==
[2017-02-17] MEDS ORDERED: ONDANSETRON HCL INJ/PF 4 MG/2 ML SDV IV ONE (07:29)
[2017-02-17] MEDS ORDERED: DICYCLOMINE HCL INJ 20 MG/2 ML AMPULE IM ONE (07:41)
[2017-02-17] MEDS ORDERED: NORMAL SALINE 1000 ML 1,000 ML IV ONE (07:41)
[2017-02-17 07:52] LABS: ABSOLUTE BASOPHILS # (AUTO) 0.1 10^3/uL (0.0-0.2); ABSOLUTE EOSINOPHILS # (AUTO) 0.1 10^3/uL (0.0-0.6); ABSOLUTE LYMPHOCYTES (AUTO) 2.6 10^3/uL (0.5-4.7); ABSOLUTE MONOCYTES (AUTO) 0.4 10^3/uL (0.1-1.4); BASOPHILS % (AUTO) 1.1 % (0-2); EOSINOPHILS % (AUTO) 0.9 % (0-6); HEMATOCRIT 46.7 % (36.0-47.0); HEMOGLOBIN 16.5 g/dL (12.0-15.5); HGB HCT DIFFERENCE 2.8; LYMPHOCYTES % (AUTO) 31.8 % (13-45); MEAN CORPUSCULAR HGB CONC 35.2 g/dL (32.0-36.0); MEAN CORPUSCULAR VOLUME 97 fl (80-97); MONOCYTES % (AUTO) 4.4 % (3-13); RED BLOOD COUNT 4.84 10^6/uL (3.72-5.28); RED CELL DISTRIBUTION WIDTH 13.3 % (11.5-14.0); SEGMENTED NEUTROPHILS % (AUTO) 61.8 % (42-78); WHITE BLOOD COUNT 8.1 10^3/uL (4.0-10.5)
--- NOTE | 2017-02-17 07:54 | ER Document Report ---
ED General - General Chief Complaint: Abdominal Pain Stated Complaint: ABDOMINAL PAIN Time Seen by Provider: 02/17/17 06:57 TRAVEL OUTSIDE OF THE [place] IN LAST 30 DAYS: No - HPI Patient complains to provider of: Abdominal pain Notes: Patient coming in for lower abdominal pain ongoing for the last 2 weeks. Patient states recently seen by physician thought she had a UTI finished a 5 day course of Keflex states is better 3 days afterwards however pain continues at this time. Patient states she has had some blood in her urine today. Patient states recently had a hysterectomy approximately 1 year ago. Patient otherwise denies any other past medical problems denies fevers chills nausea vomiting states last bowel movement was this morning. - Related Data Allergies/Adverse Reactions: ciprofloxacin [From Cipro] Allergy (Verified 10/14/16 15:16) ciprofloxacin HCl [From Cipro] Allergy (Verified 10/14/16 15:16) gabapentin [Gabapentin] Allergy (Verified 10/14/16 15:16) ketorolac tromethamine [From Toradol] Allergy (Verified 10/14/16 15:16) pregabalin [From Lyrica] Allergy (Verified 10/14/16 15:16) Past Medical History - Social History Smoking Status: Current Every Day Smoker Chew tobacco use (# tins/day): No Frequency of alcohol use: None Drug Abuse: None Family History: Reviewed & Not Pertinent Patient has suicidal ideation: No Patient has homicidal ideation: No - Past Medical History Cardiac Medical History: Reports: Hx Hypertension Endocrine Medical History: Reports: Hx Diabetes Mellitus Type 2 Renal/ Medical History: Denies: Hx Peritoneal Dialysis Musculoskeltal Medical History: Reports Hx Fibromyalgia Psychiatric Medical History: Reports: Hx Anxiety Past Surgical History: Reports: Hx Section - x2, Hx Hysterectomy, Hx Orthopedic Surgery - Right Knee - Immunizations Hx Diphtheria, Pertussis, Tetanus Vaccination: Yes Review of Systems - Review of Systems Constitutional: No symptoms reported EENT: No symptoms reported Cardiovascular: No symptoms reported Respiratory: No symptoms reported Gastrointestinal: Abdominal pain Genitourinary: No symptoms reported Female Genitourinary: No symptoms reported Musculoskeletal: No symptoms reported Skin: No symptoms reported Hematologic/Lymphatic: No symptoms reported Neurological/Psychological: No symptoms reported -: Yes All other systems reviewed and negative Physical Exam - Vital signs Vitals: Temp Pulse Resp BP Pulse Ox 98.2 F 77 18 171/85 H 98 02/17/17 06:26 02/17/17 06:26 02/17/17 06:26 02/17/17 06:26 02/17/17 06:26 Interpretation: Normal - General General appearance: Appears well, Alert - HEENT Head: Normocephalic, Atraumatic Eyes: Normal Pupils: PERRL - Respiratory Respiratory status: No respiratory distress Chest status: Nontender Breath sounds: Normal Chest palpation: Normal - Cardiovascular Rhythm: Regular Heart sounds: Normal auscultation Murmur: No - Abdominal Inspection: Obese Distension: No distension Bowel sounds: Normal Tenderness: Nontender Organomegaly: No organomegaly - Back Back: Normal, Nontender - Extremities General upper extremity: Normal inspection, Nontender, Normal color, Normal ROM , Normal temperature General lower extremity: Normal inspection, Nontender, Normal color, Normal ROM , Normal temperature, Normal weight bearing. No: Jose Enrique's sign - Neurological Neuro grossly intact: Yes Cognition: Normal Orientation: AAOx4 Evans Coma Scale Eye Opening: Spontaneous Evans Coma Scale Verbal: Oriented Brooke Coma Scale Motor: Obeys Commands Brooke Coma Scale Total: 15 Speech: Normal Motor strength normal: LUE, RUE, LLE, RLE Sensory: Normal - Psychological Associated symptoms: Normal affect, Normal mood - Skin Skin Temperature: Warm Skin Moisture: Dry Skin Color: Normal Course - Re-evaluation Re-evalutation: 02/17/17 07:52 Reviewed patient's past visits show multiple abdominal CTs that have all been read as negative. No signs of diverticulosis diverticulitis on any of the CT scans. Evaluation is not consistent with any bowel pathology. Will wait for urinalysis and laboratory studies. Patient looks to be on chronic pain management 02/17/17 08:42 Patient states continues to have pain. Explained patient she can take her pain medication at home. Laboratory studies and x-ray did not show any significant pathology. Long discussion with patient is that she states that she is concerned that she had a hysterectomy due to endometrial cancer has been losing weight. This is a conference patient has a 7 kg weight loss since September. Reassured patient otherwise laboratory studies here x-ray and examination did not reveal any critical pathology that would warrant a CAT scan at this time. Patient was encouraged follow-up with PCP for GI follow-up. Patient states understanding and otherwise states she is frustrated. Patient requested to be admitted to have a colonoscopy done to see GI I explained to the patient that with her negative workup at this time more likely the hospitalist will not admit the patient also explained to the patient she has had multiple recent CAT scans this year that have all returned negative. Again laboratory studies not show any critical pathology encouraged patient follow-up with PCP and GI specialist. The patient presents with abdominal pain without signs of peritonitis or other life-threatening or serious etiology. The patient appears stable for discharge and has been instructed to return immediately if the symptoms worsen in any way, or in 8-12hr if not improved for re-evaluation. The patient has been instructed to return if the symptoms worsen or change in any way. 02/17/17 08:45 - Vital Signs Vital signs: Temp Pulse Resp BP Pulse Ox 98.2 F 77 18 171/85 H 98 02/17/17 06:26 02/17/17 06:26 02/17/17 06:26 02/17/17 06:26 02/17/17 06:26 - Laboratory Result Diagrams: 02/17/17 07:38 02/17/17 07:38 Laboratory results interpreted by me: 02/17/17 02/17/17 07:38 07:38 Hgb 16.5 H MCH 34.0 H BUN 6 L Glucose 158 H AST 13 L Discharge - Discharge Clinical Impression: Abdominal pain Qualifiers: Abdominal location: unspecified location Qualified Code(s): R10.9 - Unspecified abdominal pain Instructions: Abdominal Pain ([facility]) Additional Instructions: Laboratory studies not reveal any signs of significant pathology for your abdominal pain. X-ray of her abdomen was also negative. Please follow-up with your primary care physician. I will have our licensed clinical social worker contact you for a follow-up assistance. Please continue your home prescribed meds. You may take the Zofran and Bentyl prescribed for nausea and pain. Prescriptions: Dicyclomine HCl [Bentyl 20 mg Tablet] 20 mg PO QID #40 tablet Ondansetron [Zofran Odt 4 mg Tablet] 1 - 2 tab PO Q4H PRN #30 tab.rapdis PRN Reason: For Nausea/Vomiting Referrals: ÁNGEL HERNANDEZ PA-C [Primary Care Provider] - Follow up as needed WINSTON COOPER MD [ACTIVE STAFF] - Follow up as needed
[2017-02-17 07:56] LABS: APPEARANCE,URINE SLIGHTLY-CLOUDY; BILIRUBIN,URINE NEGATIVE (NEGATIVE); GLUCOSE, URINE NEGATIVE (NEGATIVE); KETONES,URINE NEGATIVE (NEGATIVE); LEUKOCYTE ESTERASE,URINE NEGATIVE (NEGATIVE); NITRITE,URINE NEGATIVE (NEGATIVE); PROTEIN,URINE NEGATIVE (NEGATIVE); URINE SPECIFIC GRAVITY 1.006; UROBILINOGEN,URINE NEGATIVE mg/dL (<2.0)
[2017-02-17 08:02] LABS: ALANINE AMINOTRANSFERASE 33 U/L (9-52); ALBUMIN 3.9 g/dL (3.5-5.0); ALKALINE PHOSPHATASE 66 U/L (38-126); ANION GAP 11 (5-19); ASPARTATE AMINO TRANSFERASE 13 U/L (14-36); BILIRUBIN,DIRECT 0.4 mg/dL (0.0-0.4); BILIRUBIN,TOTAL 0.7 mg/dL (0.2-1.3); BLOOD UREA NITROGEN 6 mg/dL (7-20); CALCIUM 9.3 mg/dL (8.4-10.2); CARBON DIOXIDE 28 mmol/L (22-30); CHLORIDE 104 mmol/L (98-107); CREATININE RESULT 0.76 mg/dL (0.52-1.25); GLUCOSE 158 mg/dL (75-110); LIPASE 87.9 U/L (23-300); SODIUM 143.1 mmol/L (137-145); TOTAL PROTEIN 6.4 g/dL (6.3-8.2)
[2017-02-17 08:49] VITALS: BP 167/81
--- NOTE | 2017-02-17 09:04 | RADIOLOGY REPORT (SQ) ---
EXAM DESCRIPTION: KUB/ABDOMEN (SINGLE VIEW) COMPLETED DATE/TIME: 02/17/2017 8:18 am REASON FOR STUDY: abd pain COMPARISON: None. NUMBER OF VIEWS: One view. TECHNIQUE: Supine radiographic image of the abdomen acquired. LIMITATIONS: None. FINDINGS: BOWEL GAS PATTERN: Normal bowel gas pattern. No dilated loops. CALCIFICATIONS: No suspicious calcifications. SOFT TISSUES: No gross mass or suggestion of organomegaly. HARDWARE: None. BONES: No bone lesions or fracture. OTHER: No other significant finding. IMPRESSION: NO RADIOGRAPHIC EVIDENCE FOR ACUTE ABDOMINAL DISEASE.
== END 2017-02-17 08:49 | disposition home or self-care (01) ==
LOC: ER 06:21
DX: R10.30 Lower abdominal pain, unspecified (principal); R31.9 Hematuria, unspecified; F17.200 Nicotine dependence, unspecified, uncomplicated; I10 Essential (primary) hypertension; E11.9 Type 2 diabetes mellitus without complications; Z88.3 Allergy status to other anti-infective agents; Z90.710 Acquired absence of both cervix and uterus
CPT/HCPCS: 99284; 96372; 96361; 96374; 36415; 83690; 85025; 80053; 81001; 74000; J0500; J2405; J7030

== ENCOUNTER 2017-08-22 10:58 | Inpatient (IN) | payer SELFPAY ==
[2017-08-22] MEDS ORDERED: CLINDAMYCIN 600 MG/D5W RTU 600 MG/50 ML RTUPB IV ONE (11:49)
[2017-08-22] MEDS ORDERED: ONDANSETRON HCL INJ/PF 4 MG/2 ML SDV IV ONE (11:57)
[2017-08-22] MEDS ORDERED: NORMAL SALINE 1000 ML 1,000 ML IV ONE (11:57)
--- NOTE | 2017-08-22 11:57 | ER Document Report ---
ED General - General Chief Complaint: Facial Swelling Stated Complaint: FACE SWELLING Time Seen by Provider: 08/22/17 11:29 TRAVEL OUTSIDE OF THE [place] IN LAST 30 DAYS: No - HPI Notes: Patient is a 52-year-old female with a history of type 2 diabetes, hypertension , and fibromyalgia who presents to the ED complaining of left lower cheek and jaw swelling and pain 1-2 days. Patient states that she is still able to eat and drink without any difficulties, but does have a decreased p.o. intake. She is urinating normally and having normal bowel movements. Patient states that she has had a history of an abscess in this area in the past that needed incision and drained. Patient denies any history of MRSA. Patient believes that her swelling is starting to worsen, but has no trouble breathing. Denies any headache, fever, head injury, changes in vision/speech/mentation/hearing, URI, sore throat, chest pain, palpitations, syncope, cough, shortness of breath , wheeze, dyspnea, abdominal pain, nausea/vomiting/diarrhea, urinary retention, dysuria, hematuria, or rash. - Related Data Allergies/Adverse Reactions: ciprofloxacin [From Cipro] Allergy (Verified 08/22/17 11:01) ciprofloxacin HCl [From Cipro] Allergy (Verified 08/22/17 11:01) gabapentin [Gabapentin] Allergy (Verified 08/22/17 11:01) ketorolac tromethamine [From Toradol] Allergy (Verified 08/22/17 11:01) pregabalin [From Lyrica] Allergy (Verified 08/22/17 11:01) Past Medical History - Social History Smoking Status: Current Every Day Smoker Chew tobacco use (# tins/day): No Frequency of alcohol use: None Drug Abuse: None Family History: Reviewed & Not Pertinent Patient has suicidal ideation: No Patient has homicidal ideation: No - Past Medical History Cardiac Medical History: Reports: Hx Hypertension Endocrine Medical History: Reports: Hx Diabetes Mellitus Type 2 Renal/ Medical History: Denies: Hx Peritoneal Dialysis Musculoskeltal Medical History: Reports Hx Fibromyalgia Psychiatric Medical History: Reports: Hx Anxiety Past Surgical History: Reports: Hx Section - x2, Hx Hysterectomy, Hx Orthopedic Surgery - Right Knee - Immunizations Hx Diphtheria, Pertussis, Tetanus Vaccination: Yes Review of Systems - Review of Systems -: Yes All other systems reviewed and negative Physical Exam - Vital signs Vitals: Temp Pulse Resp BP Pulse Ox 98.6 F 80 19 178/100 H 96 08/22/17 11:07 08/22/17 11:07 08/22/17 11:07 08/22/17 11:07 08/22/17 11:07 - Notes Notes: PHYSICAL EXAMINATION: GENERAL: Well-appearing, well-nourished and in no acute distress. HEAD: Atraumatic, normocephalic. EYES: Pupils equal round and reactive to light, extraocular movements intact, sclera anicteric, conjunctiva are normal. ENT: EAC clear b/l. TM's intact b/l without erythema, fluid, or perforation. Nares patent and without discharge. oropharynx clear without exudates. No tonsilar hypertrophy or erythema. Moist mucous membranes. No sinus tenderness. Uvula midline. No palatine shift. No tongue protrusion. No respiratory compromise. Mouth: No obvious abscess near the gum line or discharge noted. No dental tenderness. + swelling to the left lower cheek/jaw with induration and tenderness associated. Induration encompasses most of the lower jaw and just inferior to the jaw line lateromedially. NECK: Normal range of motion, supple without lymphadenopathy. No rigidity/ meningismus. LUNGS: Breath sounds clear to auscultation bilaterally and equal. No wheezes rales or rhonchi. HEART: Regular rate and rhythm without murmurs, rubs, gallops. NEUROLOGICAL: Cranial nerves grossly intact. Normal speech, normal gait. Normal sensory, motor exams PSYCH: Normal mood, normal affect. SKIN: raw appearing lesion to the inferior chin with clear discharge. No superficial abscess noted. No streaks. Course - Re-evaluation Re-evalutation: 08/22/17 11:[address] Shearer who also eval'd this patient. We will start labs, fluids, antibiotics, and obtain a CT to further evaluate. Pt may need to be admitted per Dr. Shearer. 08/22/17 15:21 Patient is an afebrile, well-hydrated, 52-year-old female who presents to the ED with a left lower facial cellulitis. Vitals are acceptable. PE is otherwise unremarkable. CBC, CMP unremarkable for any acute pathology. Blood cultures are pending. Clindamycin was given IV as well as [address] scan showed cellulitis without abscess. Reviewed again with Dr. Shearer who advised admission. I called and spoke with Dr. George who accepted patient for admission at this time. Patient is in agreement with plan. Vanc 1g ordered per Dr. George. - Vital Signs Vital signs: Temp Pulse Resp BP Pulse Ox 98.6 F 80 19 178/100 H 96 08/22/17 11:07 08/22/17 11:07 08/22/17 11:07 08/22/17 11:07 08/22/17 11:07 - Laboratory Result Diagrams: 08/22/17 12:23 08/22/17 12:23 Laboratory results interpreted by me: 08/22/17 08/22/17 12:23 12:45 Glucose 158 H POC Glucose 157 H Total Protein 6.2 L Discharge - Discharge Clinical Impression: Cellulitis of face Condition: Stable Disposition: ADMITTED OBSERVATION Unit Admitted: Medical Floor
[2017-08-22] MEDS ORDERED: MORPHINE SULFATE 10 MG/ML INJ IV ONE (12:31)
[2017-08-22 12:44] LABS: ABSOLUTE LYMPHOCYTES (AUTO) 1.7 10^3/uL (0.5-4.7); ABSOLUTE MONOCYTES (AUTO) 0.4 10^3/uL (0.1-1.4); ABSOLUTE NEUT (AUTO) 5.5 10^3/uL (1.7-8.2); BASOPHILS % (AUTO) 0.5 % (0-2); EOSINOPHILS % (AUTO) 0.6 % (0-6); HEMATOCRIT 40.3 % (36.0-47.0); HEMOGLOBIN 13.9 g/dL (12.0-15.5); LYMPHOCYTES % (AUTO) 21.8 % (13-45); MEAN CORPUSCULAR HEMOGLOBIN 33.3 pg (27.0-33.4); MEAN CORPUSCULAR HGB CONC 34.6 g/dL (32.0-36.0); MEAN CORPUSCULAR VOLUME 96 fl (80-97); MONOCYTES % (AUTO) 5.4 % (3-13); PLATELET COUNT 165 10^3/uL (150-450); RED BLOOD COUNT 4.19 10^6/uL (3.72-5.28); RED CELL DISTRIBUTION WIDTH 13.5 % (11.5-14.0); SEGMENTED NEUTROPHILS % (AUTO) 71.7 % (42-78); TOTAL CELLS COUNTED % (AUTO) 100 %; WHITE BLOOD COUNT 7.6 10^3/uL (4.0-10.5)
[2017-08-22 13:00] LABS: ALANINE AMINOTRANSFERASE 28 U/L (9-52); ALBUMIN 3.6 g/dL (3.5-5.0); ALKALINE PHOSPHATASE 60 U/L (38-126); ANION GAP 7 (5-19); ASPARTATE AMINO TRANSFERASE 16 U/L (14-36); BILIRUBIN,DIRECT 0.2 mg/dL (0.0-0.4); BILIRUBIN,TOTAL 0.7 mg/dL (0.2-1.3); BLOOD UREA NITROGEN 9 mg/dL (7-20); CALCIUM 9.5 mg/dL (8.4-10.2); CARBON DIOXIDE 30 mmol/L (22-30); CHLORIDE 106 mmol/L (98-107); GLUCOSE 158 mg/dL (75-110); SODIUM 142.8 mmol/L (137-145); TOTAL PROTEIN 6.2 g/dL (6.3-8.2)
--- NOTE | 2017-08-22 13:55 | RADIOLOGY REPORT (SQ) ---
EXAM DESCRIPTION: CT SOFT TISSUE NECK WITH COMPLETED DATE/TIME: 08/22/2017 1:37 pm REASON FOR STUDY: left lower jaw/cheek infection, ?abscess COMPARISON: None. TECHNIQUE: Post IV contrasted scanning from skull base through lung apices with review of bone, soft tissue and lung windows. Reconstructed coronal and sagittal MPR images reviewed. All images stored on PACS. All CT scanners at this facility use dose modulation, iterative reconstruction, and/or weight based d osing when appropriate to reduce radiation dose to as low as reasonably achievable (ALARA). [facility]: Dose Right [facility]: CareDose [facility]: Dose Right [facility]: Teradose 4D [facility]: FlagTap CONTRAST TYPE AND DOSE: contrast/concentration: Isovue 370.00 mg/ml; Total Contrast Delivered: 75.0 ml; Total Saline Delivered: 55.1 ml RENAL FUNCTION: GFR > 60. RADIATION DOSE: CT Rad equipment meets quality standard of care and radiation dose reduction techniq ues were employed. CTDIvol: 16.6 mGy. DLP: 515 mGy-cm. . LIMITATIONS: None. FINDINGS: SKULL BASE: Intact. MAJOR SALIVARY GLANDS: No solid or cystic masses. No inflammatory changes. LYMPHADENOPATHY: No adenopathy. MUCOSAL MASSES OR ASYMMETRY: No mucosal masses or asymmetry. LARYNX/CORDS: No abnormal findings. VASCULAR STRUCTURES: The major vessels are patent. LUNG APICES: Clear. BONES: Intact. THYROID: Normal size. No masses. PARANASAL SINUSES: Clear. OTHER: Inflammation in the subcutaneous tissues of the left jaw. No organized fluid collection. IMPRESSION: Cellulitis. No abscess. TECHNICAL DOCUMENTATION: JOB ID: [id number] Quality ID # [id number]: Final reports with documentation of one or more dose reduction techniques (e.g., Au tomated exposure control, adjustment of the mA and/or kV according to patient size, use of iterative reconstruction technique) 2010 [employer]- All Rights Reserved Reading location - IP/workstation name: [email or web address]
[2017-08-22] MEDS ORDERED: HYDROMORPHONE HCL INJ/PF 2 MG/ML AMPULE IV ONE (14:23)
[2017-08-22] MEDS ORDERED: VANCOMYCIN HCL INJ 1000 MG VIAL IV ONE (15:26)
[2017-08-22] MEDS ORDERED: INSULIN LISPRO 100 UNIT/ML 3 ML VIAL SUBCUT PRN (15:39)
[2017-08-22] MEDS ORDERED: GLUCAGON,HUMAN RECOMB 1 MG INJ IM PRN (15:39)
[2017-08-22] MEDS ORDERED: DEXTROSE 50%-WATER 25 GM/50 ML DISP.SYRIN IV PRN ×2 (15:39)
[2017-08-22] MEDS ORDERED: DEXTROSE 40% GEL 15 GM TUBE PO PRN ×2 (15:39)
[2017-08-22] MEDS ORDERED: TEMAZEPAM 15 MG CAPSULE PO PRN (15:42)
[2017-08-22] MEDS ORDERED: ACETAMINOPHEN 325 MG TABLET PO PRN (15:42)
[2017-08-22] MEDS ORDERED: IPRATROPIUM/ALBUTEROL 0.5-2.5 MG/3 ML AMPUL NEB PRN (15:42)
[2017-08-22] MEDS ORDERED: VANCOMYCIN HCL 0 MG in DEXTROSE 5%-WATER 250 ML IV NR (15:45)
--- NOTE | 2017-08-22 16:18 | PDOC H&P ---
History of Present Illness Patient complains of: Facial swelling History of Present Illness: CATIA RICE is a 52 year old morbidly obese diabetic female who tends to pick at her skin. She may have had some sort of lesion on her skin though it also may have started with her just picking in the first place. In any case it became red and swollen extending along her left jawline so she came into the emergency department. She denies fevers chills, difficulty swallowing, difficulty breathing. She denies tongue swelling or any changes in sensation in the inside of her mouth. She has no dental problems currently. Past Medical History Cardiac Medical History: Reports: Hypertension Endocrine Medical History: Reports: Diabetes Mellitus Type 2, Obesity Musculoskeltal Medical History: Reports: Fibromyalgia Past Surgical History Past Surgical History: Reports: Section - x2, Hysterectomy, Orthopedic Surgery - Right Knee Social History Information Source: Patient Smoking Status: Current Every Day Smoker Frequency of Alcohol Use: None Hx Recreational Drug Use: No - Advance Directive Resuscitation Status: Full Code Family History Family History: Reviewed & Not Pertinent Parental Family History Reviewed: Yes Children Family History Reviewed: No Sibling(s) Family History Reviewed.: No Medication/Allergy Home Medications: Promethazine HCl [Phenergan 25 mg Tablet] 1 - 2 tab PO Q6H PRN #15 tablet Ondansetron [Zofran Odt 4 mg Tablet] 1 - 2 tab PO Q4H PRN #15 tab.rapdis Dicyclomine HCl [Bentyl 20 mg Tablet] 20 mg PO QID #20 tablet 04/01/16 Cephalexin Monohydrate [Keflex 500 mg Capsule] 500 mg PO QID #40 capsule Mupirocin Calcium [Bactroban Nasal] 1 gm NS BID 10 Days oint...g. 07/15/16 Sulfamethoxazole/Trimethoprim [Bactrim Ds Tablet] 2 each PO BID #40 tablet 07/15 Dicyclomine HCl [Bentyl 20 mg Tablet] 20 mg PO QID #20 tablet 10/14/16 Ondansetron [Zofran Odt 4 mg Tablet] 1 - 2 tab PO Q4H PRN #15 tab.rapdis Cyclobenzaprine HCl [Flexeril 10 mg Tablet] 10 mg PO TIDP PRN #15 tab 10/17/16 Lidocaine [Lidoderm 5% (700 mg) Transdermal Patch] 1 patch TP DAILY #15 adh..patch 10/17/16 Dicyclomine HCl [Bentyl 20 mg Tablet] 20 mg PO QID #40 tablet 02/17/17 Ondansetron [Zofran Odt 4 mg Tablet] 1 - 2 tab PO Q4H PRN #30 tab.rapdis Allergies/Adverse Reactions: ciprofloxacin [From Cipro] Allergy (Verified 08/22/17 11:01) ciprofloxacin HCl [From Cipro] Allergy (Verified 08/22/17 11:01) gabapentin [Gabapentin] Allergy (Verified 08/22/17 11:01) ketorolac tromethamine [From Toradol] Allergy (Verified 08/22/17 11:01) pregabalin [From Lyrica] Allergy (Verified 08/22/17 11:01) Review of Systems All systems: reviewed and no additional remarkable complaints except as stated Physical Exam Vital Signs: Temp Pulse Resp BP Pulse Ox 98.6 F 80 19 178/100 H 96 08/22/17 11:07 08/22/17 11:07 08/22/17 11:07 08/22/17 11:07 08/22/17 11:07 Intake & Output 08/21/17 08/22/17 08/23/17 06:59 06:59 06:59 Weight 255 lb 11.779 oz General appearance: PRESENT: no acute distress, cooperative, morbidly obese Neck exam: PRESENT: tenderness - Mostly along her chin the left side of her jaw. Some extension below the jaw. Respiratory exam: PRESENT: clear to auscultation guillermo - Distant breath sounds Cardiovascular exam: PRESENT: RRR GI/Abdominal exam: PRESENT: soft Extremities exam: ABSENT: other - No edema Musculoskeletal exam: PRESENT: normal inspection Neurological exam: PRESENT: alert Psychiatric exam: PRESENT: anxious, unusual affect Skin exam: PRESENT: other - She has several superficial scabs on her face roughly a centimeter in diameter that she is attempted to cover with makeup. Lesion on her jaw similarly show superficial excoriation, with surrounding erythema and induration extending circumferentially about 2 cm, and then running another 3 cm of the left side of her jaw. Same region is indurated and quite tender. Results Laboratory Results: 08/22/17 12:23 08/22/17 12:23 08/22/17 08/22/17 12:23 12:23 WBC 7.6 RBC 4.19 Hgb 13.9 Hct 40.3 MCV 96 MCH 33.3 MCHC 34.6 RDW 13.5 Plt Count 165 Seg Neutrophils % 71.7 Lymphocytes % 21.8 Monocytes % 5.4 Eosinophils % 0.6 Basophils % 0.5 Absolute Neutrophils 5.5 Absolute Lymphocytes 1.7 Absolute Monocytes 0.4 Absolute Eosinophils 0.0 Absolute Basophils 0.0 Sodium 142.8 Potassium 4.0 Chloride 106 Carbon Dioxide 30 Anion Gap 7 BUN 9 Creatinine 0.70 Est GFR ( Amer) > 60 Est GFR (Non-Af Amer) > 60 Glucose 158 H Calcium 9.5 Total Bilirubin 0.7 AST 16 ALT 28 Alkaline Phosphatase 60 Total Protein 6.2 L Albumin 3.6 Impressions: Soft Tissue Neck CT 08/22/17 11:48 IMPRESSION: Cellulitis. No abscess. Assessment & Plan - Diagnosis (1) Cellulitis of face Is this a current diagnosis for this admission?: Yes Plan: I do not think there is any significant extension into the submandibular space. CT showed no abscess. I think she would benefit from IV antibiotics to prevent extension. I will put her on vancomycin and clindamycin, and monitor for response (2) DM hyperosmolarity type II Is this a current diagnosis for this admission?: Yes Plan: Continue home medications and cover with sliding scale insulin (3) Morbid (severe) obesity due to excess calories Is this a current diagnosis for this admission?: Yes Plan: I will put her on a diet consistent with weight loss. (4) Fibromyalgia Is this a current diagnosis for this admission?: Yes Plan: Continue home medications
[2017-08-22] MEDS ORDERED: OXYCODONE HCL IR 5 MG TABLET PO ONE (16:49)
[2017-08-22] MEDS: VANCOMYCIN HCL 1,250 MG in DEXTROSE 5%-WATER 250 ML IV SCH (16:58)
[2017-08-22] MEDS: OXYCODONE-ACETAMINOPHEN 5-325 MG TABLET PO PRN ×2 (18:39→23:27)
[2017-08-22] MEDS: FAMOTIDINE 20 MG TABLET PO SCH (23:25)
[2017-08-22] MEDS: ATENOLOL 50 MG TABLET PO SCH (23:26)
[2017-08-22] MEDS: CLINDAMYCIN 600 MG/D5W RTU 600 MG/50 ML RTUPB IV SCH (23:27)
[2017-08-23] MEDS: LORAZEPAM 1 MG TABLET PO PRN ×2 (02:11→23:10)
[2017-08-23] MEDS: OXYCODONE-ACETAMINOPHEN 5-325 MG TABLET PO PRN ×4 (04:00→20:19)
[2017-08-23] MEDS: ROPINIROLE HCL 0.25 MG TABLET PO SCH ×2 (05:16→22:16)
[2017-08-23] MEDS: CLINDAMYCIN 600 MG/D5W RTU 600 MG/50 ML RTUPB IV SCH ×3 (05:29→22:16)
[2017-08-23] MEDS: VANCOMYCIN HCL 1,250 MG in DEXTROSE 5%-WATER 250 ML IV SCH ×2 (06:53→17:06)
[2017-08-23] MEDS: NICOTINE 21 MG/24 HR PATCH.TD24 TD SCH (10:03)
[2017-08-23] MEDS: FAMOTIDINE 20 MG TABLET PO SCH ×2 (10:03→22:16)
[2017-08-23] MEDS: ENOXAPARIN SODIUM INJ 40 MG/0.4 ML DISP.SYRIN SUBCUT SCH (10:03)
[2017-08-23] MEDS: ASPIRIN 81 MG TABLET, CHEWABLE PO SCH (10:03)
[2017-08-23] MEDS: CITALOPRAM HYDROBROMIDE 20 MG TABLET PO SCH (10:03)
[2017-08-23] MEDS: ATENOLOL 50 MG TABLET PO SCH ×2 (10:52→22:16)
[2017-08-23] MEDS: OXYCODONE HCL IR 5 MG TABLET PO PRN ×2 (11:00→17:13)
--- NOTE | 2017-08-23 14:26 | PDOC PROGRESS REPORT ---
Subjective Progress Note for:: 08/23/17 Subjective:: Hurts less but is interfering with her sleep. Continues to pick at the scabs on her face until they bleed. I requested nursing to cover them with some sort of dressing and will see how that works Reason For Visit: FACIAL CELLULITIS Physical Exam Vital Signs: Temp Pulse Resp BP Pulse Ox 98.1 F 57 L 18 127/92 H 99 08/23/17 12:47 08/23/17 12:47 08/23/17 12:47 08/23/17 12:47 08/23/17 12:47 Intake & Output 08/22/17 08/23/17 08/24/17 06:59 06:59 06:59 Intake Total 600 Balance 600 Weight 261 lb 14.546 oz 261 lb 14.546 oz General appearance: PRESENT: no acute distress, morbidly obese Respiratory exam: PRESENT: clear to auscultation guillermo Cardiovascular exam: PRESENT: RRR GI/Abdominal exam: PRESENT: soft Extremities exam: PRESENT: other - No edema Musculoskeletal exam: PRESENT: normal inspection Neurological exam: PRESENT: alert Psychiatric exam: PRESENT: appropriate affect Skin exam: PRESENT: other - She has several scabs on her face from picking. The one on her chin has decreased erythema, though still has about 3 cm of surrounding induration including below her jaw Results Impressions: Soft Tissue Neck CT 08/22/17 11:48 IMPRESSION: Cellulitis. No abscess. Assessment & Plan - Diagnosis (1) Cellulitis of face Is this a current diagnosis for this admission?: Yes Plan: Looks to be improving. I do not think there is any significant extension into the submandibular space. CT showed no abscess. I think she would benefit from IV antibiotics to prevent extension. I will continue vancomycin and clindamycin , and monitor for response. My concern, of course, is for her developing Nahun 's angina, so I will continue to observe her in the hospital until uncomfortable she is responding and then I will change her over to oral antibiotics. (2) DM hyperosmolarity type II Is this a current diagnosis for this admission?: Yes Plan: Continue home medications and cover with sliding scale insulin (3) Morbid (severe) obesity due to excess calories Is this a current diagnosis for this admission?: Yes Plan: I will put her on a diet consistent with weight loss. (4) Fibromyalgia Is this a current diagnosis for this admission?: Yes Plan: Continue home medications
[2017-08-23] MEDS: METFORMIN HCL 500 MG TABLET PO SCH (16:57)
[2017-08-23] MEDS: OXYCODONE HCL SR 10 MG TABLET PO SCH (22:15)
[2017-08-24] MEDS ORDERED: HALOPERIDOL LACTATE INJ 5 MG/1 ML VIAL IV ONE (00:30)
[2017-08-24] MEDS: OXYCODONE-ACETAMINOPHEN 5-325 MG TABLET PO PRN ×3 (04:48→20:02)
[2017-08-24] MEDS: CLINDAMYCIN 600 MG/D5W RTU 600 MG/50 ML RTUPB IV SCH (05:08)
[2017-08-24] MEDS: VANCOMYCIN HCL 1,250 MG in DEXTROSE 5%-WATER 250 ML IV SCH (06:25)
[2017-08-24 06:52] LABS: VANCOMYCIN,TROUGH 10.1 ug/mL (5.0-20.0)
[2017-08-24] MEDS: METFORMIN HCL 500 MG TABLET PO SCH ×2 (09:09→17:58)
[2017-08-24] MEDS: FAMOTIDINE 20 MG TABLET PO SCH ×2 (09:09→22:53)
[2017-08-24] MEDS: MULTIVITAMIN TABLET PO SCH (09:09)
[2017-08-24] MEDS: ASPIRIN 81 MG TABLET, CHEWABLE PO SCH (09:10)
[2017-08-24] MEDS: NICOTINE 21 MG/24 HR PATCH.TD24 TD SCH (09:10)
[2017-08-24] MEDS: ENOXAPARIN SODIUM INJ 40 MG/0.4 ML DISP.SYRIN SUBCUT SCH (09:10)
[2017-08-24] MEDS: CITALOPRAM HYDROBROMIDE 20 MG TABLET PO SCH (09:10)
[2017-08-24] MEDS: ATENOLOL 50 MG TABLET PO SCH ×2 (09:11→22:53)
--- NOTE | 2017-08-24 11:57 | PDOC PROGRESS REPORT ---
Subjective Progress Note for:: 08/24/17 Subjective:: Had an episode last night where she became very agitated. Ultimately required Haldol to get her calm down. She woke up feeling better. She is unable to articulate what happened. Staff reported that she continued to pick at the area in her chin until it bled and became very agitated when they tried to get her to stop. Reason For Visit: FACIAL CELLULITIS Physical Exam Vital Signs: Temp Pulse Resp BP Pulse Ox 97.9 F 62 16 111/57 L 99 08/24/17 08:33 08/24/17 08:33 08/24/17 08:33 08/24/17 08:33 08/24/17 08:33 Intake & Output 08/23/17 08/24/17 08/25/17 06:59 06:59 06:59 Intake Total 1300 Balance 1300 Weight 261 lb 14.546 oz 261 lb 11.019 oz General appearance: PRESENT: no acute distress, cooperative, morbidly obese Respiratory exam: PRESENT: clear to auscultation guillermo Cardiovascular exam: PRESENT: RRR GI/Abdominal exam: PRESENT: soft Neurological exam: PRESENT: alert Psychiatric exam: PRESENT: unusual affect Skin exam: PRESENT: warm Additional comments: Erythema on her chin continues to resolve. Induration is decreasing. Notably less tender today than yesterday. Results Laboratory Results: 08/24/17 05:50 08/24/17 05:50 Creatinine 0.69 Est GFR ( Amer) > 60 Est GFR (Non-Af Amer) > 60 Impressions: Soft Tissue Neck CT 08/22/17 11:48 IMPRESSION: Cellulitis. No abscess. Assessment & Plan - Diagnosis (1) Cellulitis of face Is this a current diagnosis for this admission?: Yes Plan: I will change her antibiotics over to oral clindamycin. (2) DM hyperosmolarity type II Is this a current diagnosis for this admission?: Yes Plan: Continue home medications and cover with sliding scale insulin (3) Morbid (severe) obesity due to excess calories Is this a current diagnosis for this admission?: Yes Plan: I will put her on a diet consistent with weight loss. (4) Fibromyalgia Is this a current diagnosis for this admission?: Yes Plan: Continue home medications
[2017-08-24] MEDS: OXYCODONE HCL IR 5 MG TABLET PO PRN (13:05)
[2017-08-24] MEDS: CLINDAMYCIN HCL 150 MG CAPSULE PO SCH ×2 (13:19→17:57)
[2017-08-24] MEDS ORDERED: VANCOMYCIN HCL 1,500 MG in DEXTROSE 5%-WATER 250 ML IV SCH (18:00)
[2017-08-24] MEDS ORDERED: QUETIAPINE FUMARATE 25 MG TABLET PO SCH (22:00)
[2017-08-24] MEDS: OXYCODONE HCL SR 10 MG TABLET PO SCH (22:50)
[2017-08-24] MEDS: ROPINIROLE HCL 0.25 MG TABLET PO SCH (22:51)
[2017-08-25] MEDS: CLINDAMYCIN HCL 150 MG CAPSULE PO SCH ×2 (00:05→06:47)
[2017-08-25] MEDS: OXYCODONE-ACETAMINOPHEN 5-325 MG TABLET PO PRN (02:42)
[2017-08-25] MEDS: FAMOTIDINE 20 MG TABLET PO SCH (07:40)
[2017-08-25] MEDS: ENOXAPARIN SODIUM INJ 40 MG/0.4 ML DISP.SYRIN SUBCUT SCH (09:17)
[2017-08-25] MEDS: OXYCODONE HCL IR 5 MG TABLET PO PRN (09:18)
[2017-08-25] MEDS: METFORMIN HCL 500 MG TABLET PO SCH (09:18)
[2017-08-25] MEDS: CITALOPRAM HYDROBROMIDE 20 MG TABLET PO SCH (09:18)
[2017-08-25] MEDS: MULTIVITAMIN TABLET PO SCH (09:18)
[2017-08-25] MEDS: ATENOLOL 50 MG TABLET PO SCH (09:18)
[2017-08-25] MEDS: ASPIRIN 81 MG TABLET, CHEWABLE PO SCH (09:18)
[2017-08-25] MEDS: NICOTINE 21 MG/24 HR PATCH.TD24 TD SCH (09:19)
[2017-08-25 11:42] VITALS: BP 148/77
--- NOTE | 2017-08-25 20:05 | PDOC DISCHARGE SUMMARY ---
General - Admit/Disc Date/PCP Admission Date/Primary Care Provider: 08/22/17 15:42 Discharge Date: 08/25/17 - Discharge Diagnosis (1) Cellulitis of face Is this a current diagnosis for this admission?: Yes Summary: Initially treated with vancomycin and clindamycin. Swelling has greatly improved as has the erythema. She was changed over to oral and she will be discharged on another week. She still has an area of induration about 3 cm total left of her original lesion on the margin of her jaw. This can be reevaluated at follow-up. (2) DM hyperosmolarity type II Is this a current diagnosis for this admission?: Yes Summary: Home medications were continued (3) Morbid (severe) obesity due to excess calories Is this a current diagnosis for this admission?: Yes (4) Fibromyalgia Is this a current diagnosis for this admission?: Yes - Additional Information Resuscitation Status: Full Code Discharge Diet: Regular, Diabetic Discharge Activity: Activity As Tolerated Prescriptions: Clindamycin HCl [Cleocin 150 mg Capsule] 300 mg PO Q6 #28 capsule Home Medications: Aspirin [Aspirin 81 mg Chewable Tablet] 81 mg PO DAILY 08/22/17 Atenolol [Tenormin 50 mg Tablet] 50 mg PO Q12 08/22/17 Citalopram Hydrobromide [Celexa 10 mg Tablet] 40 mg PO DAILY 08/22/17 Lorazepam [Ativan 1 mg Tablet] 1 mg PO Q12HP PRN 08/22/17 Oxycodone HCl [Oxy-Ir 5 mg Tablet] 10 mg PO Q6HP PRN 08/22/17 Ropinirole HCl [Requip 0.25 mg Tablet] 0.5 mg PO QHS 08/22/17 Metformin HCl [Glucophage 500 mg Tablet] 1,000 mg PO BIDACBS 08/23/17 Multivitamin [Tab-A-Mesha (Multiple Vitamin) Tablet] 1 tab PO DAILY 08/23/17 Clindamycin HCl [Cleocin 150 mg Capsule] 300 mg PO Q6 #28 capsule 08/25/17 History of Present Illness Patient complains of: Facials swelling and redness History of Present Illness: CATIA RICE is a 52 year old morbidly obese diabetic female who tends to pick at her skin. She may have had some sort of lesion on her skin though it also may have started with her just picking in the first place. In any case it became red and swollen extending along her left jawline so she came into the emergency department. She denies fevers chills, difficulty swallowing, difficulty breathing. She denies tongue swelling or any changes in sensation in the inside of her mouth. She has no dental problems currently. Hospital Course Hospital Course: She was treated with IV vancomycin and clindamycin. She is very persistent about picking at her face. Most of the induration and erythema has resolved. She has a small patch of induration without erythema remaining about a centimeter in diameter on the left side of her jaw with no evident overlying lesion. She was transitioned over to oral clindamycin and will be discharged on another week. She was strongly counseled to avoid picking at her lesions, though this is a long-standing issue for her. Physical Exam Vital Signs: Temp Pulse Resp BP Pulse Ox 98.4 F 53 L 18 148/77 H 99 08/25/17 11:36 08/25/17 11:36 08/25/17 11:36 08/25/17 11:36 08/25/17 11:36 Intake & Output 08/24/17 08/25/17 08/26/17 06:59 06:59 06:59 Intake Total 1300 1000 Balance 1300 1000 Weight 261 lb 11.019 oz 261 lb 0.437 oz General appearance: PRESENT: no acute distress, cooperative, morbidly obese Respiratory exam: PRESENT: clear to auscultation guillermo Cardiovascular exam: PRESENT: RRR GI/Abdominal exam: PRESENT: soft Musculoskeletal exam: PRESENT: normal inspection Neurological exam: PRESENT: alert Psychiatric exam: PRESENT: anxious Skin exam: PRESENT: other - She has multiple superficial lesions on her face from picking. None appear acutely infected. Results Laboratory Results: 08/24/17 05:50 08/23/17 15:36 Nasophary (Mrsa Only) MRSA Surveillance Culture - Final NO MRSA RECOVERED Impressions: Soft Tissue Neck CT 08/22/17 11:48 IMPRESSION: Cellulitis. No abscess. Qualifiers - * PATIENT BEING DISCHARGED WITH ANY OF THE FOLLOWING DIAGNOSIS: No
== END 2017-08-25 12:00 | disposition home or self-care (01) | DRG 603 ==
LOC: ER 10:58 → EH 15:42 → EEVIPCON 15:42 → UNDOADMIN 17:32 → EH 17:32 → 2S 23:40
PROVIDERS: ADMIT Internal Medicine; ATTEND Internal Medicine
DX: L03.211 Cellulitis of face (principal); Z68.41 Body mass index [BMI] 40.0-44.9, adult; R22.0 Localized swelling, mass and lump, head; E11.9 Type 2 diabetes mellitus without complications; I10 Essential (primary) hypertension; M79.7 Fibromyalgia; F17.210 Nicotine dependence, cigarettes, uncomplicated; E66.01 Morbid (severe) obesity due to excess calories; Z79.84 Long term (current) use of oral hypoglycemic drugs; Z79.899 Other long term (current) drug therapy
CPT/HCPCS: 36415; 70491; 80053; 80202; 82565; 82962; 85025; 87040; 96365; 96366; 96367; 96375; 99285; J1170; J1630; J1650; J1815; J2270; J2405; J3370; J7030; J7060

== ENCOUNTER 2017-09-29 21:08 | Emergency (ER) | payer SELFPAY ==
[2017-09-29 21:39] VITALS: BP 132/70
--- NOTE | 2017-09-30 00:26 | ER Document Report ---
ED General - General Chief Complaint: Skin Problem Stated Complaint: DIZZINESS AND POSSIBLE INFECTION Time Seen by Provider: 09/30/17 00:11 TRAVEL OUTSIDE OF THE [place] IN LAST 30 DAYS: No - Related Data Allergies/Adverse Reactions: ciprofloxacin [From Cipro] Allergy (Verified 08/22/17 11:01) gabapentin [Gabapentin] Allergy (Verified 08/22/17 11:01) ketorolac tromethamine [From Toradol] Allergy (Verified 08/22/17 11:01) pregabalin [From Lyrica] Allergy (Verified 08/22/17 11:01) Past Medical History - Social History Smoking Status: Current Every Day Smoker Chew tobacco use (# tins/day): No Frequency of alcohol use: Occasional Drug Abuse: None Family History: Reviewed & Not Pertinent Patient has suicidal ideation: No Patient has homicidal ideation: No - Past Medical History Cardiac Medical History: Reports: Hx Hypertension Endocrine Medical History: Reports: Hx Diabetes Mellitus Type 2 Renal/ Medical History: Denies: Hx Peritoneal Dialysis Musculoskeltal Medical History: Reports Hx Fibromyalgia Psychiatric Medical History: Reports: Hx Anxiety, Hx Depression Past Surgical History: Reports: Hx Section - x2, Hx Hysterectomy, Hx Orthopedic Surgery - Right Knee - Immunizations Hx Diphtheria, Pertussis, Tetanus Vaccination: Yes Physical Exam - Vital signs Vitals: Temp Pulse Resp BP Pulse Ox 98.5 F 58 L 18 132/70 H 96 09/29/17 21:37 09/29/17 21:37 09/29/17 21:37 09/29/17 21:37 09/29/17 21:37 Course - Vital Signs Vital signs: Temp Pulse Resp BP Pulse Ox 98.5 F 58 L 18 132/70 H 96 09/29/17 21:37 09/29/17 21:37 09/29/17 21:37 09/29/17 21:37 09/29/17 21:37 Discharge - Discharge Clinical Impression: Hair follicle infection Condition: Good Disposition: HOME, SELF-CARE Additional Instructions: Please continue to take the doxycyline that your doctor prescribed you. Please follow up with your doctor either on Wednesday or Wednesday. Please do not wear makeup over the next 2-3 days. Please do not push or pick at your skin. Please return to the ER immediately if you develop fevers, spreading redness, swelling to the face, or if you feel unwell.
== END 2017-09-30 00:46 | disposition home or self-care (01) ==
LOC: ER 21:08
DX: R42 Dizziness and giddiness (principal); L73.9 Follicular disorder, unspecified; F17.200 Nicotine dependence, unspecified, uncomplicated; I10 Essential (primary) hypertension; E11.9 Type 2 diabetes mellitus without complications; Z90.710 Acquired absence of both cervix and uterus; Z88.3 Allergy status to other anti-infective agents
CPT/HCPCS: 99282

== ENCOUNTER 2017-10-01 10:09 | Emergency (ER) | payer SELFPAY ==
--- NOTE | 2017-10-01 10:36 | ER Document Report ---
ED Medical Screen (RME) - General Chief Complaint: Skin Problem Stated Complaint: FACE/HEAD PAIN Time Seen by Provider: 10/01/17 10:17 Notes: Patient recently hospitalized for facial cellulitis. Now has abscess on her forehead. Swelling under bilateral eyes. Pain in the left eye. No fever. Was seen here 1 night ago and states that the swelling on the forehead is gotten worse. I have greeted and performed a rapid initial assessment of this patient. A comprehensive ED assessment and evaluation of the patient, analysis of test results and completion of the medical decision making process will be conducted by additional ED providers. TRAVEL OUTSIDE OF THE [place] IN LAST 30 DAYS: No - Related Data Allergies/Adverse Reactions: ciprofloxacin [From Cipro] Allergy (Verified 10/01/17 10:25) gabapentin [Gabapentin] Allergy (Verified 10/01/17 10:25) ketorolac tromethamine [From Toradol] Allergy (Verified 10/01/17 10:25) pregabalin [From Lyrica] Allergy (Verified 10/01/17 10:25) Past Medical History - Social History Chew tobacco use (# tins/day): No Frequency of alcohol use: Social Drug Abuse: None - Past Medical History Cardiac Medical History: Reports: Hx Hypertension Endocrine Medical History: Reports: Hx Diabetes Mellitus Type 2 Renal/ Medical History: Denies: Hx Peritoneal Dialysis Musculoskeltal Medical History: Reports Hx Fibromyalgia Psychiatric Medical History: Reports: Hx Anxiety, Hx Depression Past Surgical History: Reports: Hx Section - x2, Hx Hysterectomy, Hx Orthopedic Surgery - Right Knee - Immunizations Hx Diphtheria, Pertussis, Tetanus Vaccination: Yes History of Influenza Vaccine for 01/2017 - 06/2017 Season: No Physical Exam - Vital signs Vitals: Temp Pulse Resp BP Pulse Ox 99.2 F 53 L 16 130/70 H 95 10/01/17 10:20 10/01/17 10:20 10/01/17 10:20 10/01/17 10:20 10/01/17 10:20 - HEENT Head: Normocephalic, Atraumatic, Open wounds, Other - There is swelling under bilateral eyes. There is a large ecchymotic abscess appearing area on the left forehead area. There is injection of the conjunctiva of the left eye. Eyes: Normal Pupils: PERRL Course - Vital Signs Vital signs: Temp Pulse Resp BP Pulse Ox 99.2 F 53 L 16 130/70 H 95 10/01/17 10:20 10/01/17 10:20 10/01/17 10:20 10/01/17 10:20 10/01/17 10:20
[2017-10-01] MEDS ORDERED: METOCLOPRAMIDE HCL INJ/PF 10 MG/2 ML SDV IV ONE (11:12)
[2017-10-01] MEDS ORDERED: HYDROCODONE/ACETAMINOPHEN 5-325 MG TABLET PO ONE (11:12)
[2017-10-01 11:14] LABS: ABSOLUTE EOSINOPHILS # (AUTO) 0.2 10^3/uL (0.0-0.6); ABSOLUTE LYMPHOCYTES (AUTO) 3.2 10^3/uL (0.5-4.7); ABSOLUTE MONOCYTES (AUTO) 0.5 10^3/uL (0.1-1.4); ABSOLUTE NEUT (AUTO) 3.5 10^3/uL (1.7-8.2); BASOPHILS % (AUTO) 0.7 % (0-2); EOSINOPHILS % (AUTO) 2.6 % (0-6); HEMATOCRIT 39.6 % (36.0-47.0); HEMOGLOBIN 13.9 g/dL (12.0-15.5); LYMPHOCYTES % (AUTO) 43.4 % (13-45); MEAN CORPUSCULAR HEMOGLOBIN 34.2 pg (27.0-33.4); MEAN CORPUSCULAR HGB CONC 35.1 g/dL (32.0-36.0); MEAN CORPUSCULAR VOLUME 97 fl (80-97); MONOCYTES % (AUTO) 6.2 % (3-13); PLATELET COUNT 222 10^3/uL (150-450); RED BLOOD COUNT 4.06 10^6/uL (3.72-5.28); RED CELL DISTRIBUTION WIDTH 13.7 % (11.5-14.0); SEGMENTED NEUTROPHILS % (AUTO) 47.1 % (42-78); TOTAL CELLS COUNTED % (AUTO) 100 %; WHITE BLOOD COUNT 7.4 10^3/uL (4.0-10.5)
--- NOTE | 2017-10-01 11:16 | ER Document Report ---
ED General - General Chief Complaint: Skin Problem Stated Complaint: FACE/HEAD PAIN Time Seen by Provider: 10/01/17 10:17 Mode of Arrival: Ambulatory Information source: Patient Notes: 52-year-old female presents with history of multiple abscesses recent admission with complaints of abscess of the left forehead. Patient is she is on doxycycline 1 tablet daily for 20 days. Patient notes that there is drainage coming from the forehead abscess was seen here a few days prior noted to have no life-threatening reactions from this and then today awoke with swelling under her eyes. Patient denies any fevers or chills denies any diarrhea admits to nausea vomiting with pain TRAVEL OUTSIDE OF THE [place] IN LAST 30 DAYS: No - HPI Onset: Last week Onset/Duration: Persistent, Worse Quality of pain: Achy Severity: Mild Pain Level: 1 Associated symptoms: Other Exacerbated by: Denies Relieved by: Denies Similar symptoms previously: Yes Recently seen / treated by doctor: Yes - Related Data Allergies/Adverse Reactions: ciprofloxacin [From Cipro] Allergy (Verified 10/01/17 10:25) gabapentin [Gabapentin] Allergy (Verified 10/01/17 10:25) ketorolac tromethamine [From Toradol] Allergy (Verified 10/01/17 10:25) pregabalin [From Lyrica] Allergy (Verified 10/01/17 10:25) Past Medical History - Social History Smoking Status: Current Every Day Smoker Cigarette use (# per day): Yes Chew tobacco use (# tins/day): No Frequency of alcohol use: Social Drug Abuse: None Family History: Reviewed & Not Pertinent Patient has suicidal ideation: No Patient has homicidal ideation: No - Past Medical History Cardiac Medical History: Reports: Hx Hypertension Endocrine Medical History: Reports: Hx Diabetes Mellitus Type 2 Renal/ Medical History: Denies: Hx Peritoneal Dialysis Musculoskeltal Medical History: Reports Hx Fibromyalgia Psychiatric Medical History: Reports: Hx Anxiety, Hx Depression Past Surgical History: Reports: Hx Section - x2, Hx Hysterectomy, Hx Orthopedic Surgery - Right Knee - Immunizations Hx Diphtheria, Pertussis, Tetanus Vaccination: Yes Review of Systems - Review of Systems Notes: REVIEW OF SYSTEMS: CONSTITUTIONAL : Denies fever, chills, or sweats. Denies recent illness. EENT: Admits facial swelling CARDIOVASCULAR: Denies chest pain. Denies palpitations or racing or irregular heart beat. Denies ankle edema. RESPIRATORY: Denies cough, cold, or chest congestion. Denies shortness of breath, difficulty breathing, or wheezing. GASTROINTESTINAL: Denies abdominal pain or distention. Denies nausea, vomiting , or diarrhea. Denies blood in vomitus, stools, or per rectum. Denies black, tarry stools. Denies constipation. GENITOURINARY: Denies difficulty urinating, painful urination, burning, frequency, blood in urine, or discharge. FEMALE GENITOURINARY: Denies vaginal bleeding, heavy or abnormal periods, irregular periods. Denies vaginal discharge or odor. MUSCULOSKELETAL: Denies back or neck pain or stiffness. Denies joint pain or swelling. SKIN: Admits to abscesses HEMATOLOGIC : Denies easy bruising or bleeding. LYMPHATIC: Denies swollen, enlarged glands. NEUROLOGICAL: Denies confusion or altered mental status. Denies passing out or loss of consciousness. Denies dizziness or lightheadedness. Denies headache. Denies weakness or paralysis or loss of use of either side. Denies problems with gait or speech. Denies sensory loss, numbness, or tingling. Denies seizures. PSYCHIATRIC: Denies anxiety or stress. Denies depression, suicidal ideation, or homicidal ideation. ALL OTHER SYSTEMS REVIEWED AND NEGATIVE. PHYSICAL EXAMINATION: GENERAL: Well-appearing, well-nourished and in no acute distress. HEAD: Atraumatic, normocephalic. EYES: Pupils equal round and reactive to light, extraocular movements intact, conjunctiva are normal. There is mild edema of bilateral infero-orbital regions ENT: Nares patent, oropharynx clear without exudates. Moist mucous membranes. NECK: Normal range of motion, supple without lymphadenopathy LUNGS: Breath sounds clear to auscultation bilaterally and equal. No wheezes rales or rhonchi. HEART: Regular rate and rhythm without murmurs ABDOMEN: Soft, nontender, nondistended abdomen. No guarding, no rebound. No masses appreciated. Female : deferred Musculoskeletal: Normal range of motion, no pitting or edema. No cyanosis. NEUROLOGICAL: Cranial nerves grossly intact. Normal speech, normal gait. Normal sensory, motor exams PSYCH: Normal mood, normal affect. SKIN: Patient is noted to have abscess left forehead with mild cellulitic component small amount of drainage, multiple scars from previous abscesses Dictation was performed using Dragon voice recognition software Physical Exam - Vital signs Vitals: Temp Pulse Resp BP Pulse Ox 99.2 F 53 L 16 130/70 H 95 10/01/17 10:20 10/01/17 10:20 10/01/17 10:20 10/01/17 10:20 10/01/17 10:20 Course - Re-evaluation Re-evalutation: 10/01/17 11:38 I do not believe there is any involvement of the abscess with orbits, patient overall looks well is not septic, she was taking doxycycline only 1 tablet daily , I have told her to increase it to 1 tablet twice a day as this would be more appropriate dosing 10/01/17 15:29 Patient was reevaluated multiple times stable she is in no distress, she will be discharged home with close follow-up After performing a Medical Screening Examination, I estimate there is LOW risk for orbital cellulitis sepsis, thus I consider the discharge disposition reasonable. Also, there is no evidence or peritonitis, sepsis, or toxicity. I have reevaluated this patient multiple times and no significant life threatening changes are noted. The patient and I have discussed the diagnosis and risks, and we agree with discharging home with close follow-up with the understanding that symptoms and presentations can change. We also discussed returning to the Emergency Department immediately if new or worsening symptoms occur. We have discussed the symptoms which are most concerning (e.g., changing or worsening pain, fever, numbness, weakness, cool or painful digits) that necessitate immediate return. - Vital Signs Vital signs: Temp Pulse Resp BP Pulse Ox 97.9 F 76 16 112/72 94 10/01/17 13:55 10/01/17 13:55 10/01/17 13:55 10/01/17 14:04 10/01/17 13:55 - Laboratory Result Diagrams: 10/01/17 10:50 10/01/17 10:50 Laboratory results interpreted by me: 10/01/17 10/01/17 10:50 10:50 MCH 34.2 H Potassium 5.3 H Carbon Dioxide 31 H Calcium 10.4 H C-Reactive Protein 30.3 H - Diagnostic Test Radiology reviewed: Image reviewed - CT orbits with contrast notes no significant abnormality, Reports reviewed Discharge - Discharge Clinical Impression: Cellulitis of face Condition: Stable Disposition: HOME, SELF-CARE Instructions: MRSA Cellulitis ([facility]) Additional Instructions: Follow up with your physician tomorrow for further care or return to the ED IMMEDIATELY if symptoms worsen or new concerns occur. If you cannot afford to follow up with your primary care physician a list of low cost clinics have been provided at the end of your discharge papers as well. Prescriptions: Hydrocodone/Acetaminophen [[place] 5-325 mg Tablet] 1 tab PO Q6 #10 tablet Metoclopramide HCl [Reglan 10 mg Tablet] 1 - 2 tab PO Q6 #25 tablet Referrals: YOBANI CHESTER MD [Primary Care Provider] - Follow up as needed
[2017-10-01 11:43] LABS: ALANINE AMINOTRANSFERASE 23 U/L (9-52); ALBUMIN 4.3 g/dL (3.5-5.0); ALKALINE PHOSPHATASE 50 U/L (38-126); ANION GAP 8 (5-19); ASPARTATE AMINO TRANSFERASE 25 U/L (14-36); BILIRUBIN,DIRECT 0.4 mg/dL (0.0-0.4); BILIRUBIN,TOTAL 0.5 mg/dL (0.2-1.3); BLOOD UREA NITROGEN 20 mg/dL (7-20); C-REACTIVE PROTEIN 30.3 mg/L (<10.0); CALCIUM 10.4 mg/dL (8.4-10.2); CARBON DIOXIDE 31 mmol/L (22-30); CHLORIDE 102 mmol/L (98-107); GLUCOSE 108 mg/dL (75-110); POTASSIUM 5.3 mmol/L (3.6-5.0); SODIUM 140.8 mmol/L (137-145); TOTAL PROTEIN 7.2 g/dL (6.3-8.2)
--- NOTE | 2017-10-01 13:26 | RADIOLOGY REPORT (SQ) ---
EXAM DESCRIPTION: CT ORBIT/SELLA WITH COMPLETED DATE/TIME: 10/01/2017 12:55 pm REASON FOR STUDY: orbital cellulitis COMPARISON: None. TECHNIQUE: Post contrast images through the orbits windowed for bone and soft tissue. Additional co celia and sagittal reconstructed images reviewed. All images stored on PACS. All CT scanners at this facility use dose modulation, iterative reconstruction, and/or weight based d osing when appropriate to reduce radiation dose to as low as reasonably achievable (ALARA). [facility]: Dose Right [facility]: CareDose [facility]: Dose Right [facility]: Teradose 4D [facility]: GoCardless CONTRAST TYPE AND DOSE: contrast/concentration: Isovue 370.00 mg/ml; Total Contrast Delivered: 75.0 ml; Total Saline Delivered: 55.0 ml RENAL FUNCTION: BUN 20 creatinine 0.76. RADIATION DOSE: CT Rad equipment meets quality standard of care and radiation dose reduction techniq ues were employed. CTDIvol: 30.4 mGy. DLP: 405 mGy-cm. . LIMITATIONS: None. FINDINGS: FACIAL BONES: No fracture or bone lesion. ORBITS: Intact. No fracture. Symmetric intact globes and retroorbital soft tissues. PARANASAL SINUSES: Clear. No significant mucosal thickening, mass or fluid. SOFT TISSUES: No mass or edema. No abnormal enhancement. No CT evidence of acute sinusitis. INFERIOR BRAIN: Limited view. No acute findings. OTHER: No other significant finding. IMPRESSION: NORMAL STUDY. TECHNICAL DOCUMENTATION: JOB ID: [id number] Quality ID # [id number]: Final reports with documentation of one or more dose reduction techniques (e.g., Au tomated exposure control, adjustment of the mA and/or kV according to patient size, use of iterative reconstruction technique) 2010 [employer]- All Rights Reserved Reading location - IP/workstation name: [email or web address]
[2017-10-01 14:05] VITALS: BP 112/72
== END 2017-10-01 14:15 | disposition home or self-care (01) ==
LOC: ER 10:09 → EEVIPCON 10:09 → ER 14:15
DX: L03.211 Cellulitis of face (principal); R11.2 Nausea with vomiting, unspecified; F17.210 Nicotine dependence, cigarettes, uncomplicated; I10 Essential (primary) hypertension; E11.9 Type 2 diabetes mellitus without complications; Z88.3 Allergy status to other anti-infective agents; Z90.710 Acquired absence of both cervix and uterus
CPT/HCPCS: 99284; 96374; 36415; 87070; 87205; 85025; 86140; 87077; 80053; 87186; 70481; J2765

== ENCOUNTER 2017-11-19 10:08 | Inpatient (IN) | payer SELFPAY ==
--- NOTE | 2017-11-19 11:12 | ER Document Report ---
ED General - General Chief Complaint: Facial Swelling Stated Complaint: SKIN ISSUE Time Seen by Provider: 11/19/17 11:12 Mode of Arrival: Ambulatory Information source: Patient TRAVEL OUTSIDE OF THE [place] IN LAST 30 DAYS: No - HPI Onset: Other - 2 DAYS AGO Onset/Duration: Gradual Quality of pain: Burning, Fullness Severity: Moderate Associated symptoms: denies: Chills, Drooling, Fever, Hoarseness, Sore throat Exacerbated by: Movement, Other - PALPATION Relieved by: Remaining still Similar symptoms previously: Yes - 2 MONTHS AGO, OTHER SIDE OF FACE Recently seen / treated by doctor: No - Related Data Allergies/Adverse Reactions: ciprofloxacin [From Cipro] Allergy (Verified 10/01/17 10:25) gabapentin [Gabapentin] Allergy (Verified 10/01/17 10:25) ketorolac tromethamine [From Toradol] Allergy (Verified 10/01/17 10:25) pregabalin [From Lyrica] Allergy (Verified 10/01/17 10:25) Past Medical History - General Information source: Patient - Social History Smoking Status: Current Every Day Smoker Cigarette use (# per day): Yes Chew tobacco use (# tins/day): No Frequency of alcohol use: Rare Drug Abuse: None Lives with: Family Family History: Reviewed & Not Pertinent Patient has suicidal ideation: No Patient has homicidal ideation: No - Past Medical History Cardiac Medical History: Reports: Hx Hypertension Pulmonary Medical History: Reports: None EENT Medical History: Reports: None Neurological Medical History: Reports: None Endocrine Medical History: Reports: Hx Diabetes Mellitus Type 2 Renal/ Medical History: Reports: None. Denies: Hx Peritoneal Dialysis Malignancy Medical History: Reports: None GI Medical History: Reports: None Musculoskeletal Medical History: Reports Hx Fibromyalgia Psychiatric Medical History: Reports: Hx Anxiety, Hx Depression Past Surgical History: Reports: Hx Section - x2, Hx Hysterectomy, Hx Orthopedic Surgery - Right Knee - Immunizations Hx Diphtheria, Pertussis, Tetanus Vaccination: Yes Review of Systems - Review of Systems Constitutional: No symptoms reported. denies: Chills, Fever EENT: See HPI Cardiovascular: No symptoms reported Respiratory: No symptoms reported Gastrointestinal: No symptoms reported Genitourinary: No symptoms reported Musculoskeletal: No symptoms reported Skin: See HPI Neurological/Psychological: No symptoms reported Physical Exam - Vital signs Vitals: Temp Pulse Resp BP Pulse Ox 98.2 F 63 18 144/75 H 95 11/19/17 10:14 11/19/17 10:14 11/19/17 10:14 11/19/17 10:14 11/19/17 10:14 Interpretation: Hypertensive. No: Tachycardic, Tachypneic, Febrile - General General appearance: Appears well, Alert In distress: None - HEENT Head: Normocephalic Eyes: Normal Conjunctiva: Normal Ears: Normal External canal: Normal Tympanic membrane: Normal Nasal: Normal Mouth/Lips: Normal Mucous membranes: Normal - Respiratory Respiratory status: No respiratory distress - Cardiovascular Rhythm: Regular - Abdominal Inspection: Obese - Back Back: Normal - Extremities General upper extremity: Normal inspection General lower extremity: Normal inspection - Neurological Neuro grossly intact: Yes Cognition: Normal Orientation: AAOx4 - Psychological Associated symptoms: Normal affect, Normal mood - Skin Skin Temperature: Warm Skin Moisture: Dry Skin Color: Normal Skin Turgor: Elastic Location of irregularity: Face - R. PRE-AURICULAR, MANDIBULAR Irregularity with: Swelling, Tenderness, Warmth Course - Vital Signs Vital signs: Temp Pulse Resp BP Pulse Ox 98.2 F 63 18 144/75 H 95 11/19/17 10:14 11/19/17 10:14 11/19/17 10:14 11/19/17 10:14 11/19/17 10:14 - Laboratory Result Diagrams: 11/19/17 11:16 11/19/17 11:16 Laboratory results interpreted by me: 11/19/17 11/19/17 11:16 11:16 MCH 33.6 H BUN 22 H Glucose 167 H Discharge - Discharge Clinical Impression: Cellulitis of face Type 2 diabetes mellitus Qualifiers: Diabetes mellitus alf insulin use: unspecified intermediate designer insulin use status Diabetes mellitus complication status: without complication Qualified Code(s): E11.9 - Type 2 diabetes mellitus without complications Condition: Good Disposition: ADMITTED INPATIENT Admitting Provider: Hospitalist Unit Admitted: Medical Floor Referrals: YOBANI CHESTER MD [Primary Care Provider] - Follow up as needed
[2017-11-19] MEDS ORDERED: MORPHINE SULFATE 10 MG/ML INJ IV ONE ×2 (11:28→14:22)
[2017-11-19] MEDS ORDERED: ONDANSETRON 4 MG TAB.RAPDIS PO ONE (11:28)
[2017-11-19] MEDS ORDERED: DIPHENHYDRAMINE HCL 50 MG/ML VIAL IV ONE (11:28)
[2017-11-19] MEDS ORDERED: CLINDAMYCIN 900 MG/D5W RTU 900 MG/50 ML RTUPB IV ONE (11:29)
[2017-11-19] MEDS ORDERED: VANCOMYCIN HCL INJ 1000 MG VIAL IV ONE (11:29)
[2017-11-19 11:49] LABS: ABSOLUTE EOSINOPHILS # (AUTO) 0.1 10^3/uL (0.0-0.6); ABSOLUTE LYMPHOCYTES (AUTO) 2.1 10^3/uL (0.5-4.7); ABSOLUTE MONOCYTES (AUTO) 0.6 10^3/uL (0.1-1.4); BASOPHILS % (AUTO) 0.6 % (0-2); EOSINOPHILS % (AUTO) 1.5 % (0-6); HEMATOCRIT 38.1 % (36.0-47.0); HEMOGLOBIN 13.3 g/dL (12.0-15.5); LYMPHOCYTES % (AUTO) 26.8 % (13-45); MEAN CORPUSCULAR HEMOGLOBIN 33.6 pg (27.0-33.4); MEAN CORPUSCULAR HGB CONC 34.9 g/dL (32.0-36.0); MEAN CORPUSCULAR VOLUME 96 fl (80-97); MONOCYTES % (AUTO) 7.6 % (3-13); PLATELET COUNT 193 10^3/uL (150-450); RED BLOOD COUNT 3.96 10^6/uL (3.72-5.28); RED CELL DISTRIBUTION WIDTH 12.6 % (11.5-14.0); SEGMENTED NEUTROPHILS % (AUTO) 63.5 % (42-78); TOTAL CELLS COUNTED % (AUTO) 100 %; WHITE BLOOD COUNT 7.9 10^3/uL (4.0-10.5)
[2017-11-19 12:00] LABS: ALANINE AMINOTRANSFERASE 31 U/L (9-52); ALBUMIN 3.8 g/dL (3.5-5.0); ALKALINE PHOSPHATASE 57 U/L (38-126); ANION GAP 9 (5-19); ASPARTATE AMINO TRANSFERASE 23 U/L (14-36); BILIRUBIN,DIRECT 0.3 mg/dL (0.0-0.4); BILIRUBIN,TOTAL 0.5 mg/dL (0.2-1.3); BLOOD UREA NITROGEN 22 mg/dL (7-20); CALCIUM 9.2 mg/dL (8.4-10.2); CARBON DIOXIDE 29 mmol/L (22-30); CHLORIDE 101 mmol/L (98-107); GLUCOSE 167 mg/dL (75-110); POTASSIUM 4.6 mmol/L (3.6-5.0); SODIUM 139.1 mmol/L (137-145); TOTAL PROTEIN 6.6 g/dL (6.3-8.2)
--- NOTE | 2017-11-19 12:55 | RADIOLOGY REPORT (SQ) ---
EXAM DESCRIPTION: CT SOFT TISSUE NECK WITH COMPLETED DATE/TIME: 11/19/2017 12:38 pm REASON FOR STUDY: R. FACIAL CELLUITIS, R/O ABSCESS COMPARISON: None. TECHNIQUE: Post IV contrasted scanning from skull base through lung apices with review of bone, soft tissue and lung windows. Reconstructed coronal and sagittal MPR images reviewed. All images stored on PACS. All CT scanners at this facility use dose modulation, iterative reconstruction, and/or weight based d osing when appropriate to reduce radiation dose to as low as reasonably achievable (ALARA). [facility]: Dose Right [facility]: CareDose [facility]: Dose Right [facility]: Teradose 4D [facility]: Icinetic CONTRAST TYPE AND DOSE: contrast/concentration: Isovue 370.00 mg/ml; Total Contrast Delivered: 75.0 ml; Total Saline Delivered: 55.0 ml RENAL FUNCTION: GFR > 60. RADIATION DOSE: CT Rad equipment meets quality standard of care and radiation dose reduction techniq ues were employed. CTDIvol: 17.8 mGy. DLP: 586 mGy-cm. . LIMITATIONS: None. FINDINGS: SKULL BASE: Intact. MAJOR SALIVARY GLANDS: No solid or cystic masses. No inflammatory changes. LYMPHADENOPATHY: No adenopathy. MUCOSAL MASSES OR ASYMMETRY: No mucosal masses or asymmetry. LARYNX/CORDS: No abnormal findings. VASCULAR STRUCTURES: The major vessels are patent. LUNG APICES: Clear. BONES: Degenerative disc disease THYROID: Normal size. No masses. PARANASAL SINUSES: Clear. OTHER: Subcutaneous soft tissue edema along the right face. No focal abscess. IMPRESSION: Right subcutaneous facial soft tissue edema without focal abscess. TECHNICAL DOCUMENTATION: JOB ID: [id number] Quality ID # [id number]: Final reports with documentation of one or more dose reduction techniques (e.g., Au tomated exposure control, adjustment of the mA and/or kV according to patient size, use of iterative reconstruction technique) 2010 [employer]- All Rights Reserved Reading location - IP/workstation name: [email or web address]
--- NOTE | 2017-11-19 15:13 | PDOC H&P ---
History of Present Illness Admission Date/PCP: YOBANI CHESTER MD History of Present Illness: CATIA RICE is a 52 year old female whose past medical history of diabetes, fibromyalgia, depression, obesity, hypertension and tobacco dependence presented to us with chief complaint of right facial swelling and pain. Of note patient has had recurrent cellulitis of the left face which has been going on for the last [address] scan reported as soft tissue edema throughout abscess formation. He denies chills, fever, chest pain , cough, palpitation, diaphoresis. No nausea, vomiting abdominal pain or diarrhea. No urinary complaints. No syncope, dizziness, blurring of vision or any seizure activity. Her blood work is unremarkable. Past Medical History Cardiac Medical History: Reports: Hypertension Pulmonary Medical History: Reports: None EENT Medical History: Reports: None Neurological Medical History: Reports: None Endocrine Medical History: Reports: Diabetes Mellitus Type 2 Renal/ Medical History: Reports: None Malignancy Medical History: Reports: None GI Medical History: Reports: None Musculoskeltal Medical History: Reports: Fibromyalgia Psychiatric Medical History: Reports: Depression Past Surgical History Past Surgical History: Reports: Section - x2, Hysterectomy, Orthopedic Surgery - Right Knee Social History Lives with: Family Smoking Status: Current Every Day Smoker Frequency of Alcohol Use: Rare Hx Recreational Drug Use: No Drugs: None Hx Prescription Drug Abuse: No - Advance Directive Resuscitation Status: Full Code Family History Family History: Reviewed & Not Pertinent, CAD, DM, Hypertension Parental Family History Reviewed: Yes Children Family History Reviewed: Yes Sibling(s) Family History Reviewed.: Yes Medication/Allergy Home Medications: Aspirin [Aspirin 81 mg Chewable Tablet] 81 mg PO DAILY 08/22/17 Atenolol [Tenormin 50 mg Tablet] 50 mg PO Q12 08/22/17 Citalopram Hydrobromide [Celexa 10 mg Tablet] 40 mg PO DAILY 08/22/17 Lorazepam [Ativan 1 mg Tablet] 1 mg PO Q12HP PRN 08/22/17 Oxycodone HCl [Oxy-Ir 5 mg Tablet] 10 mg PO Q6HP PRN 08/22/17 Ropinirole HCl [Requip 0.25 mg Tablet] 0.5 mg PO QHS 08/22/17 Metformin HCl [Glucophage 500 mg Tablet] 1,000 mg PO BIDACBS 08/23/17 Multivitamin [Tab-A-Mesha (Multiple Vitamin) Tablet] 1 tab PO DAILY 08/23/17 Clindamycin HCl [Cleocin 150 mg Capsule] 300 mg PO Q6 #28 capsule 08/25/17 Hydrocodone/Acetaminophen [[place] 5-325 mg Tablet] 1 tab PO Q6 #10 tablet Metoclopramide HCl [Reglan 10 mg Tablet] 1 - 2 tab PO Q6 #25 tablet 10/01/17 Allergies/Adverse Reactions: ciprofloxacin [From Cipro] Allergy (Verified 10/01/17 10:25) gabapentin [Gabapentin] Allergy (Verified 10/01/17 10:25) ketorolac tromethamine [From Toradol] Allergy (Verified 10/01/17 10:25) pregabalin [From Lyrica] Allergy (Verified 10/01/17 10:25) Review of Systems Constitutional: ABSENT: chills, fever(s), headache(s), weight gain, weight loss Eyes: ABSENT: visual disturbances Ears: ABSENT: hearing changes Cardiovascular: ABSENT: chest pain, dyspnea on exertion, edema, orthropnea, palpitations Respiratory: ABSENT: cough, hemoptysis Gastrointestinal: ABSENT: abdominal pain, constipation, diarrhea, hematemesis, hematochezia, nausea, vomiting Genitourinary: ABSENT: dysuria, hematuria Musculoskeletal: ABSENT: joint swelling Integumentary: ABSENT: rash, wounds Neurological: ABSENT: abnormal gait, abnormal speech, confusion, dizziness, focal weakness, syncope Psychiatric: ABSENT: anxiety, depression, homidical ideation, suicidal ideation Endocrine: ABSENT: cold intolerance, heat intolerance, polydipsia, polyuria Hematologic/Lymphatic: ABSENT: easy bleeding, easy bruising Physical Exam Vital Signs: Temp Pulse Resp BP Pulse Ox 98.2 F 63 18 144/75 H 95 11/19/17 10:14 11/19/17 10:14 11/19/17 10:14 11/19/17 10:14 11/19/17 10:14 Intake & Output 11/18/17 11/19/17 11/20/17 06:59 06:59 06:59 Intake Total 50 Balance 50 Weight 128.3 kg General appearance: PRESENT: no acute distress, well-developed, well-nourished Head exam: PRESENT: atraumatic, normocephalic Eye exam: PRESENT: conjunctiva pink, EOMI, PERRLA. ABSENT: scleral icterus Ear exam: PRESENT: normal external ear exam Mouth exam: PRESENT: moist, tongue midline Neck exam: ABSENT: carotid bruit, JVD, lymphadenopathy, thyromegaly Respiratory exam: PRESENT: clear to auscultation guillermo. ABSENT: rales, rhonchi, wheezes Cardiovascular exam: PRESENT: RRR. ABSENT: diastolic murmur, rubs, systolic murmur Pulses: PRESENT: normal dorsalis pedis pul Vascular exam: PRESENT: normal capillary refill GI/Abdominal exam: PRESENT: normal bowel sounds, soft. ABSENT: distended, guarding, mass, organolmegaly, rebound, tenderness Rectal exam: PRESENT: deferred Extremities exam: PRESENT: full ROM. ABSENT: calf tenderness, clubbing, pedal edema Neurological exam: PRESENT: alert, awake, oriented to person, oriented to place , oriented to time, oriented to situation. ABSENT: motor sensory deficit Psychiatric exam: PRESENT: appropriate affect, normal mood. ABSENT: homicidal ideation Skin exam: PRESENT: dry, erythema - Of the left face, intact, warm. ABSENT: cyanosis, rash Results Laboratory Results: 11/19/17 11:16 11/19/17 11:16 11/19/17 11/19/17 11:16 11:16 WBC 7.9 RBC 3.96 Hgb 13.3 Hct 38.1 MCV 96 MCH 33.6 H MCHC 34.9 RDW 12.6 Plt Count 193 Seg Neutrophils % 63.5 Lymphocytes % 26.8 Monocytes % 7.6 Eosinophils % 1.5 Basophils % 0.6 Absolute Neutrophils 5.0 Absolute Lymphocytes 2.1 Absolute Monocytes 0.6 Absolute Eosinophils 0.1 Absolute Basophils 0.0 Sodium 139.1 Potassium 4.6 Chloride 101 Carbon Dioxide 29 Anion Gap 9 BUN 22 H Creatinine 0.79 Est GFR ( Amer) > 60 Est GFR (Non-Af Amer) > 60 Glucose 167 H Calcium 9.2 Total Bilirubin 0.5 AST 23 ALT 31 Alkaline Phosphatase 57 Total Protein 6.6 Albumin 3.8 Impressions: Soft Tissue Neck CT 11/19/17 11:31 IMPRESSION: Right subcutaneous facial soft tissue edema without focal abscess. Assessment & Plan - Diagnosis (1) Facial cellulitis,left Is this a current diagnosis for this admission?: Yes Plan: Patient has been started on vancomycin (2) Hypertension Qualifiers: Hypertension type: essential hypertension Qualified Code(s): I10 - Essential (primary) hypertension Is this a current diagnosis for this admission?: Yes Plan: Continue home medication (3) Type 2 diabetes mellitus Is this a current diagnosis for this admission?: Yes Plan: I will continue her home metformin thousand milligrams twice a day. In addition I will put her on sliding scale. (4) Fibromyalgia Is this a current diagnosis for this admission?: Yes Plan: Continue her home medication (5) Depression Is this a current diagnosis for this admission?: Yes Plan: Continue home medication (6) Tobacco dependence Is this a current diagnosis for this admission?: Yes Plan: Patient counseled and encouraged to quit smoking. (7) Obesity Is this a current diagnosis for this admission?: Yes Plan: Lifestyle modification advised.
[2017-11-19] MEDS ORDERED: DEXTROSE 40% GEL 15 GM TUBE PO PRN ×2 (15:21)
[2017-11-19] MEDS ORDERED: INSULIN LISPRO 100 UNIT/ML 3 ML VIAL SUBCUT PRN (15:21)
[2017-11-19] MEDS ORDERED: GLUCAGON,HUMAN RECOMB 1 MG INJ IM PRN (15:21)
[2017-11-19] MEDS ORDERED: DEXTROSE 50%-WATER 25 GM/50 ML DISP.SYRIN IV PRN ×2 (15:21)
[2017-11-19] MEDS ORDERED: VANCOMYCIN HCL 0 MG in DEXTROSE 5%-WATER 250 ML IV NR (15:30)
[2017-11-19] MEDS: METFORMIN HCL 500 MG TABLET PO SCH (16:37)
[2017-11-19] MEDS: ONDANSETRON 4 MG TAB.RAPDIS PO PRN (16:42)
[2017-11-19] MEDS: OXYCODONE-ACETAMINOPHEN 5-325 MG TABLET PO PRN ×2 (16:42→21:06)
[2017-11-19] MEDS: VANCOMYCIN HCL 1,250 MG in DEXTROSE 5%-WATER 250 ML IV SCH (22:52)
[2017-11-20] MEDS: VANCOMYCIN HCL 1,250 MG in DEXTROSE 5%-WATER 250 ML IV SCH ×3 (05:50→22:12)
[2017-11-20] MEDS: OXYCODONE-ACETAMINOPHEN 5-325 MG TABLET PO PRN ×5 (05:51→23:43)
[2017-11-20] MEDS: LANSOPRAZOLE 30 MG TAB.RAP.DR PO SCH (05:51)
[2017-11-20 06:48] LABS: ABSOLUTE EOSINOPHILS # (AUTO) 0.1 10^3/uL (0.0-0.6); ABSOLUTE LYMPHOCYTES (AUTO) 1.8 10^3/uL (0.5-4.7); ABSOLUTE MONOCYTES (AUTO) 0.6 10^3/uL (0.1-1.4); BASOPHILS % (AUTO) 0.4 % (0-2); EOSINOPHILS % (AUTO) 1.5 % (0-6); HEMATOCRIT 36.3 % (36.0-47.0); HEMOGLOBIN 12.5 g/dL (12.0-15.5); LYMPHOCYTES % (AUTO) 27.5 % (13-45); MEAN CORPUSCULAR HEMOGLOBIN 33.3 pg (27.0-33.4); MEAN CORPUSCULAR HGB CONC 34.4 g/dL (32.0-36.0); MEAN CORPUSCULAR VOLUME 97 fl (80-97); MONOCYTES % (AUTO) 8.9 % (3-13); PLATELET COUNT 153 10^3/uL (150-450); RED BLOOD COUNT 3.75 10^6/uL (3.72-5.28); RED CELL DISTRIBUTION WIDTH 12.5 % (11.5-14.0); SEGMENTED NEUTROPHILS % (AUTO) 61.7 % (42-78); TOTAL CELLS COUNTED % (AUTO) 100 %; WHITE BLOOD COUNT 6.5 10^3/uL (4.0-10.5)
[2017-11-20 07:10] LABS: ANION GAP 7 (5-19); BLOOD UREA NITROGEN 13 mg/dL (7-20); CALCIUM 8.9 mg/dL (8.4-10.2); CARBON DIOXIDE 30 mmol/L (22-30); CHLORIDE 106 mmol/L (98-107); GLUCOSE 127 mg/dL (75-110); POTASSIUM 4.2 mmol/L (3.6-5.0); SODIUM 142.9 mmol/L (137-145)
--- NOTE | 2017-11-20 10:25 | PDOC PROGRESS REPORT ---
Subjective Progress Note for:: 11/20/17 Subjective:: This is 52 years old female patient admitted with chief complaint of left fascial swelling and pain. Of note this patient has recurrent cellulitis involving the left face. During her last admission S. aureus was isolated from the culture. Patient has been started on vancomycin. This morning I seen patient resting in bed comfortably. The swelling is shrinking and his erythema is subsiding. Her blood works are unremarkable. Reason For Visit: FASCIAL CELLULITIS Physical Exam Vital Signs: Temp Pulse Resp BP Pulse Ox 98.8 F 62 18 155/61 H 95 11/20/17 07:21 11/20/17 08:17 11/20/17 08:17 11/20/17 07:21 11/20/17 08:17 Intake & Output 11/19/17 11/20/17 11/21/17 06:59 06:59 06:59 Intake Total 1000 Balance 1000 Weight 129.1 kg General appearance: PRESENT: no acute distress Head exam: PRESENT: atraumatic Eye exam: PRESENT: conjunctiva pink Neck exam: ABSENT: carotid bruit, JVD, lymphadenopathy, thyromegaly Respiratory exam: PRESENT: clear to auscultation guillermo. ABSENT: rales, rhonchi, wheezes Cardiovascular exam: PRESENT: RRR. ABSENT: diastolic murmur, rubs, systolic murmur GI/Abdominal exam: PRESENT: normal bowel sounds, soft. ABSENT: distended, guarding, mass, organolmegaly, rebound, tenderness Neurological exam: PRESENT: alert, awake, oriented to time Results Laboratory Results: 11/20/17 06:20 11/20/17 06:20 11/20/17 11/20/17 06:20 06:20 WBC 6.5 RBC 3.75 Hgb 12.5 Hct 36.3 MCV 97 MCH 33.3 MCHC 34.4 RDW 12.5 Plt Count 153 Seg Neutrophils % 61.7 Lymphocytes % 27.5 Monocytes % 8.9 Eosinophils % 1.5 Basophils % 0.4 Absolute Neutrophils 4.0 Absolute Lymphocytes 1.8 Absolute Monocytes 0.6 Absolute Eosinophils 0.1 Absolute Basophils 0.0 Sodium 142.9 Potassium 4.2 Chloride 106 Carbon Dioxide 30 Anion Gap 7 BUN 13 Creatinine 0.69 Est GFR ( Amer) > 60 Est GFR (Non-Af Amer) > 60 Glucose 127 H Calcium 8.9 Impressions: Soft Tissue Neck CT 11/19/17 11:31 IMPRESSION: Right subcutaneous facial soft tissue edema without focal abscess. Assessment & Plan - Diagnosis (1) Facial cellulitis,left Is this a current diagnosis for this admission?: Yes Plan: Patient has been started on vancomycin. Wound culture requested and surgery consulted to evaluate the patient (2) Hypertension Qualifiers: Hypertension type: essential hypertension Qualified Code(s): I10 - Essential (primary) hypertension Is this a current diagnosis for this admission?: Yes Plan: Continue home medication (3) Type 2 diabetes mellitus Qualifiers: Diabetes mellitus residential insulin use: unspecified residential insulin use status Diabetes mellitus complication status: without complication Qualified Code(s): E11.9 - Type 2 diabetes mellitus without complications Is this a current diagnosis for this admission?: Yes Plan: I will continue her home metformin thousand milligrams twice a day. In addition I will put her on sliding scale. (4) Fibromyalgia Is this a current diagnosis for this admission?: Yes Plan: Continue her home medication (5) Depression Is this a current diagnosis for this admission?: Yes Plan: Continue home medication (6) Tobacco dependence Is this a current diagnosis for this admission?: Yes Plan: Patient counseled and encouraged to quit smoking. (7) Obesity Is this a current diagnosis for this admission?: Yes Plan: Lifestyle modification advised.
[2017-11-20] MEDS: ATENOLOL 50 MG TABLET PO SCH (10:59)
[2017-11-20] MEDS: ENOXAPARIN SODIUM INJ 40 MG/0.4 ML DISP.SYRIN SUBCUT SCH (11:01)
[2017-11-20] MEDS: METFORMIN HCL 500 MG TABLET PO SCH ×2 (11:03→17:54)
[2017-11-20 14:54] LABS: VANCOMYCIN,TROUGH 12.2 ug/mL (5.0-20.0)
[2017-11-20] MEDS: PAROXETINE HCL 20 MG TABLET PO SCH (17:55)
[2017-11-21] MEDS: ONDANSETRON 4 MG TAB.RAPDIS PO PRN (02:12)
[2017-11-21] MEDS: OXYCODONE-ACETAMINOPHEN 5-325 MG TABLET PO PRN ×5 (03:56→20:26)
[2017-11-21] MEDS: VANCOMYCIN HCL 1,250 MG in DEXTROSE 5%-WATER 250 ML IV SCH ×3 (05:59→22:27)
[2017-11-21] MEDS: LANSOPRAZOLE 30 MG TAB.RAP.DR PO SCH (06:00)
[2017-11-21] MEDS: METFORMIN HCL 500 MG TABLET PO SCH ×2 (07:56→16:11)
--- NOTE | 2017-11-21 11:13 | PDOC PROGRESS REPORT ---
Subjective Progress Note for:: 11/21/17 Subjective:: This is a 52-year-old female with a right face cellulitis/infection. The patient has been performing warm compresses and chlorhexidine scrubs. The eschar overlying the cellulitis has softened, and there is a small opening. There is a small amount of purulent material draining from the wound. The patient reports that her pain is similar to yesterday. She feels that the infection is not worsening. She denies headache, fevers, chills, chest pain, shortness of breath, abdominal pain, nausea, vomiting, dizziness, orthostasis, fatigue. Reason For Visit: FASCIAL CELLULITIS Physical Exam Vital Signs: Temp Pulse Resp BP Pulse Ox 98.0 F 63 18 140/68 H 96 11/21/17 07:55 11/21/17 07:55 11/21/17 07:55 11/21/17 07:55 11/21/17 07:55 Intake & Output 11/20/17 11/21/17 11/22/17 06:59 06:59 06:59 Intake Total 1000 1430 Balance 1000 1430 Weight 129.1 kg General appearance: PRESENT: no acute distress Head exam: PRESENT: atraumatic, normocephalic Eye exam: PRESENT: EOMI, PERRLA Mouth exam: PRESENT: neck supple Neck exam: PRESENT: lymphadenopathy. ABSENT: meningismus, tenderness, thyromegaly, tracheal deviation Respiratory exam: PRESENT: clear to auscultation guillermo, unlabored. ABSENT: chest wall tenderness, wheezes Cardiovascular exam: PRESENT: RRR Pulses: PRESENT: normal radial pulses Vascular exam: PRESENT: normal capillary refill. ABSENT: pallor GI/Abdominal exam: PRESENT: soft. ABSENT: distended, guarding, tenderness Rectal exam: PRESENT: deferred Extremities exam: ABSENT: clubbing Musculoskeletal exam: ABSENT: deformity Neurological exam: PRESENT: alert, awake, oriented to person, oriented to place , oriented to time, oriented to situation, CN II-XII grossly intact Psychiatric exam: ABSENT: agitated, anxious, depressed Focused psych exam: ABSENT: delusional Skin exam: PRESENT: other - Erythema and induration of the right face. Small amount of purulent drainage. No significant fluctuance or obvious abscess cavity. Results Laboratory Results: 11/20/17 06:20 11/20/17 06:20 Impressions: Soft Tissue Neck CT 11/19/17 11:31 IMPRESSION: Right subcutaneous facial soft tissue edema without focal abscess. Assessment & Plan - Plan Summary Plan Summary: This is a 52-year-old female with a subcutaneous infection of the right face. I have no evidence that this is related to the parotid gland. I believe this to be a superficial infection. Treatment should consist of warm compresses, chlorhexidine scrubs, and antibiotics. I do not recommend any surgical intervention, as I cannot identify an abscess cavity. Tight glucose control will be essential in her recovery. Her exam is improved today. I will see the patient again on an as needed basis. Please renotify with any questions or concerns. Follow-up in my office in 7-10 days.
--- NOTE | 2017-11-21 11:22 | PDOC CONSULTATION ---
Consultation Consult Date: 11/20/17 Consult reason:: Right face cellulitis History of Present Illness Admission Date/PCP: 11/19/17 15:13 YOBANI CHESTER MD History of Present Illness: CATIA RICE is a 52 year old female with erythema, induration, and pain of the right face. It has been present for approximately 2 days, and is worsening. The patient reports a small pimple in the area that has subsequently worsened. The patient denies fevers, chills, nausea, vomiting, orthostasis, dizziness, fatigue, chest pain, shortness of breath, abdominal pain , or blurry vision. Her pain is dull and constant. The affected area is immediately anterior and inferior to the right ear, overlying the area of the parotid gland. She rates her pain as a 6 out of 10. The patient is a diabetic. She appears to be somewhat noncompliant with her diabetic medications. Nothing makes her pain better. Palpation makes her pain worse. The pain does not radiate. Past Medical History Cardiac Medical History: Reports: Hypertension Pulmonary Medical History: Reports: None EENT Medical History: Reports: None Neurological Medical History: Reports: None Endocrine Medical History: Reports: Diabetes Mellitus Type 2 Renal/ Medical History: Reports: None Malignancy Medical History: Reports: None GI Medical History: Reports: None Musculoskeltal Medical History: Reports: Fibromyalgia Psychiatric Medical History: Denies: Depression Past Surgical History Past Surgical History: Reports: Section - x2, Hysterectomy, Orthopedic Surgery - Right Knee Social History Lives with: Family Smoking Status: Current Every Day Smoker Cigarettes Packs Per Day: 1 Frequency of Alcohol Use: None Hx Recreational Drug Use: No Drugs: None Hx Prescription Drug Abuse: No - Advance Directive Resuscitation Status: Full Code Family History Family History: Reviewed & Not Pertinent Parental Family History Reviewed: Yes Children Family History Reviewed: Yes Sibling(s) Family History Reviewed.: Yes Medication/Allergy Home Medications: Oxycodone HCl [Oxycodone HCl 10 MG Tablet] 10 mg PO Q6 11/19/17 Paroxetine HCl [Paxil] 30 mg PO DAILY 11/19/17 Ropinirole HCl [Requip 0.25 Mg Tablet] 0.5 mg PO QHS 11/19/17 Allergies/Adverse Reactions: ciprofloxacin [From Cipro] Allergy (Verified 10/01/17 10:25) gabapentin [Gabapentin] Allergy (Verified 10/01/17 10:25) ketorolac tromethamine [From Toradol] Allergy (Verified 10/01/17 10:25) pregabalin [From Lyrica] Allergy (Verified 10/01/17 10:25) Review of Systems Constitutional: ABSENT: anorexia, chills, fatigue, fever(s) Eyes: ABSENT: visual disturbances Ears: ABSENT: hearing changes Nose, Mouth, and Throat: ABSENT: sore throat Cardiovascular: ABSENT: chest pain Respiratory: ABSENT: cough, dyspnea Gastrointestinal: ABSENT: abdominal pain, bloating, nausea, vomiting Genitourinary: ABSENT: dysuria Musculoskeletal: ABSENT: back pain Integumentary: PRESENT: erythema - Right face Neurological: ABSENT: abnormal speech, confusion, dizziness, memory loss Psychiatric: ABSENT: anxiety, depression Endocrine: ABSENT: cold intolerance, heat intolerance Hematologic/Lymphatic: ABSENT: easy bleeding, easy bruising Physical Exam Vital Signs: Temp Pulse Resp BP Pulse Ox 97.7 F 63 18 129/72 H 95 11/20/17 18:15 11/20/17 18:15 11/20/17 18:15 11/20/17 18:15 11/20/17 18:15 Intake & Output 11/19/17 11/20/17 11/21/17 06:59 06:59 06:59 Intake Total 1000 930 Balance 1000 930 Weight 129.1 kg General appearance: PRESENT: no acute distress Head exam: PRESENT: atraumatic, normocephalic Eye exam: PRESENT: EOMI, PERRLA. ABSENT: scleral icterus Mouth exam: PRESENT: moist, neck supple Neck exam: PRESENT: lymphadenopathy. ABSENT: meningismus, tenderness, thyromegaly, tracheal deviation Respiratory exam: PRESENT: clear to auscultation guillermo, unlabored. ABSENT: accessory muscle use, chest wall tenderness, rales, tachypnea, wheezes Cardiovascular exam: PRESENT: RRR Pulses: PRESENT: normal radial pulses Vascular exam: PRESENT: normal capillary refill. ABSENT: pallor GI/Abdominal exam: PRESENT: soft. ABSENT: distended, firm, guarding Rectal exam: PRESENT: deferred Extremities exam: ABSENT: clubbing Musculoskeletal exam: ABSENT: deformity Neurological exam: PRESENT: alert, awake, oriented to person, oriented to place , oriented to time, oriented to situation, CN II-XII grossly intact Psychiatric exam: ABSENT: agitated, anxious, depressed Focused psych exam: ABSENT: delusional Skin exam: PRESENT: erythema - Right face, other - Eschar to the right face overlying the area of erythema. No purulent drainage. No fluctuance apparent.. ABSENT: cyanosis Results Laboratory Results: 11/20/17 06:20 11/20/17 06:20 11/20/17 11/20/17 06:20 06:20 WBC 6.5 RBC 3.75 Hgb 12.5 Hct 36.3 MCV 97 MCH 33.3 MCHC 34.4 RDW 12.5 Plt Count 153 Seg Neutrophils % 61.7 Lymphocytes % 27.5 Monocytes % 8.9 Eosinophils % 1.5 Basophils % 0.4 Absolute Neutrophils 4.0 Absolute Lymphocytes 1.8 Absolute Monocytes 0.6 Absolute Eosinophils 0.1 Absolute Basophils 0.0 Sodium 142.9 Potassium 4.2 Chloride 106 Carbon Dioxide 30 Anion Gap 7 BUN 13 Creatinine 0.69 Est GFR ( Amer) > 60 Est GFR (Non-Af Amer) > 60 Glucose 127 H Calcium 8.9 Impressions: Soft Tissue Neck CT 11/19/17 11:31 IMPRESSION: Right subcutaneous facial soft tissue edema without focal abscess. Assessment & Plan - Plan Summary Plan Summary: This is a 52-year-old diabetic female with cellulitis of the right face. There is local swelling and excoriation, but the patient reports that it is slowly improving. There is no discernible abscess present at the moment. I have reviewed the patient's CT scan. There is no obvious drainable fluid collection. Due to the proximity of this wound to the parotid gland, a more conservative approach is the most prudent course of action. I have recommended warm compresses, continued antibiotics, washing of the face with chlorhexidine scrub. The patient has agreed to this. I will continue to follow the patient very closely with you. I will reevaluate the cellulitis tomorrow. Further planning will depend on the patient's clinical course.
[2017-11-21] MEDS: ENOXAPARIN SODIUM INJ 40 MG/0.4 ML DISP.SYRIN SUBCUT SCH (11:43)
[2017-11-21] MEDS: ATENOLOL 50 MG TABLET PO SCH (11:50)
--- NOTE | 2017-11-21 13:39 | PDOC PROGRESS REPORT ---
Subjective Progress Note for:: 11/21/17 Subjective:: I seen patient resting in bed comfortably. The cellulitis of the right face is improving evidenced by shrinking of the size and erythema of the swelling. She has been evaluated by Dr. Grewal who recommended medical management since there is no abscess to be drained. Her wound culture grew gram-positive cocci in clusters. Reason For Visit: FASCIAL CELLULITIS Physical Exam Vital Signs: Temp Pulse Resp BP Pulse Ox 98.8 F 69 16 139/80 H 97 11/21/17 11:10 11/21/17 11:10 11/21/17 11:10 11/21/17 11:10 11/21/17 11:10 Intake & Output 11/20/17 11/21/17 11/22/17 06:59 06:59 06:59 Intake Total 1000 1430 250 Balance 1000 1430 250 Weight 129.1 kg General appearance: PRESENT: no acute distress Head exam: PRESENT: atraumatic Eye exam: PRESENT: conjunctiva pink Mouth exam: PRESENT: moist Neck exam: ABSENT: carotid bruit, JVD, lymphadenopathy, thyromegaly Respiratory exam: PRESENT: clear to auscultation guillermo. ABSENT: rales, rhonchi, wheezes Cardiovascular exam: PRESENT: RRR. ABSENT: diastolic murmur, rubs, systolic murmur GI/Abdominal exam: PRESENT: normal bowel sounds, soft. ABSENT: distended, guarding, mass, organolmegaly, rebound, tenderness Extremities exam: PRESENT: full ROM. ABSENT: calf tenderness, clubbing, pedal edema Neurological exam: PRESENT: alert, altered, oriented to time, oriented to situation Psychiatric exam: PRESENT: normal mood Results Laboratory Results: 11/20/17 06:20 11/20/17 06:20 Impressions: Soft Tissue Neck CT 11/19/17 11:31 IMPRESSION: Right subcutaneous facial soft tissue edema without focal abscess. Assessment & Plan - Diagnosis (1) Facial cellulitis,left Is this a current diagnosis for this admission?: Yes Plan: Patient has been on vancomycin. Wound culture grew gram-positive cocci in cluster most probably staph aureus sensitivity pattern is pending (2) Hypertension Qualifiers: Hypertension type: essential hypertension Qualified Code(s): I10 - Essential (primary) hypertension Is this a current diagnosis for this admission?: Yes Plan: Continue home medication (3) Type 2 diabetes mellitus Qualifiers: Diabetes mellitus division superintendent insulin use: unspecified division superintendent insulin use status Diabetes mellitus complication status: without complication Qualified Code(s): E11.9 - Type 2 diabetes mellitus without complications Is this a current diagnosis for this admission?: Yes Plan: I will continue her home metformin thousand milligrams twice a day. In addition I will put her on sliding scale. (4) Fibromyalgia Is this a current diagnosis for this admission?: Yes Plan: Continue her home medication (5) Depression Is this a current diagnosis for this admission?: Yes Plan: Continue home medication (6) Tobacco dependence Is this a current diagnosis for this admission?: Yes Plan: Patient counseled and encouraged to quit smoking. (7) Obesity Is this a current diagnosis for this admission?: Yes Plan: Lifestyle modification advised.
[2017-11-21] MEDS: PAROXETINE HCL 20 MG TABLET PO SCH (17:07)
[2017-11-21] MEDS ORDERED: MELATONIN 5 MG TABLET PO ONE (23:00)
[2017-11-22] MEDS: OXYCODONE-ACETAMINOPHEN 5-325 MG TABLET PO PRN ×5 (00:31→22:22)
[2017-11-22] MEDS: LORAZEPAM INJ 2 MG/1 ML VIAL IV PRN ×2 (01:46→22:02)
[2017-11-22] MEDS: LANSOPRAZOLE 30 MG TAB.RAP.DR PO SCH (06:19)
[2017-11-22] MEDS: VANCOMYCIN HCL 1,250 MG in DEXTROSE 5%-WATER 250 ML IV SCH ×3 (06:20→22:01)
[2017-11-22] MEDS: ENOXAPARIN SODIUM INJ 40 MG/0.4 ML DISP.SYRIN SUBCUT SCH (09:29)
[2017-11-22] MEDS ORDERED: ONDANSETRON 4 MG TAB.RAPDIS PO PRN (12:00)
[2017-11-22] MEDS: ATENOLOL 50 MG TABLET PO SCH (12:33)
[2017-11-22] MEDS: METFORMIN HCL 500 MG TABLET PO SCH ×2 (16:00→17:31)
[2017-11-22] MEDS: PAROXETINE HCL 20 MG TABLET PO SCH (17:32)
[2017-11-23] MEDS: OXYCODONE-ACETAMINOPHEN 5-325 MG TABLET PO PRN ×2 (02:38→07:47)
[2017-11-23] MEDS ORDERED: LANSOPRAZOLE 30 MG TAB.RAP.DR PO SCH (06:00)
[2017-11-23] MEDS: VANCOMYCIN HCL 1,250 MG in DEXTROSE 5%-WATER 250 ML IV SCH (06:18)
[2017-11-23] MEDS: METFORMIN HCL 500 MG TABLET PO SCH (07:47)
--- NOTE | 2017-11-23 09:14 | PDOC DISCHARGE SUMMARY ---
General - Admit/Disc Date/PCP Admission Date/Primary Care Provider: 11/19/17 15:13 YOBANI CHESTER MD Discharge Date: 11/23/17 - Discharge Diagnosis (1) Facial cellulitis,left Is this a current diagnosis for this admission?: Yes Summary: Wound culture positive for MSSA (2) Hypertension Is this a current diagnosis for this admission?: Yes (3) Type 2 diabetes mellitus Is this a current diagnosis for this admission?: Yes (4) Fibromyalgia Is this a current diagnosis for this admission?: Yes (5) Depression Is this a current diagnosis for this admission?: Yes (6) Tobacco dependence Is this a current diagnosis for this admission?: Yes (7) Obesity Is this a current diagnosis for this admission?: Yes - Additional Information Resuscitation Status: Full Code Discharge Diet: Diabetic Discharge Activity: Activity As Tolerated, Balance Activity w/Rest Prescriptions: Clindamycin HCl 300 mg PO TID #21 capsule Home Medications: Oxycodone HCl [Oxycodone HCl 10 MG Tablet] 10 mg PO Q6 11/19/17 Paroxetine HCl [Paxil] 30 mg PO DAILY 11/19/17 Ropinirole HCl [Requip 0.25 mg Tablet] 0.5 mg PO QHS 11/19/17 Clindamycin HCl 300 mg PO TID #21 capsule 11/23/17 History of Present Illness History of Present Illness: CATIA RICE is a 52 year old female whose past medical history of diabetes, fibromyalgia, depression, obesity, hypertension and tobacco dependence presented to us with chief complaint of right facial swelling and pain. Of note patient has had recurrent cellulitis of the left face which has been going on for the last [address] scan reported as soft tissue edema throughout abscess formation. He denies chills, fever, chest pain , cough, palpitation, diaphoresis. No nausea, vomiting abdominal pain or diarrhea. No urinary complaints. No syncope, dizziness, blurring of vision or any seizure activity. Her blood work is unremarkable. Hospital Course Hospital Course: This is 52 years old female patient admitted with chief complaint of left fascial swelling and pain. Of note this patient has recurrent cellulitis involving the left face. During her last admission S. aureus was isolated from the culture again MSSA isolated from the wound culture during current admission. Patient has been managed with vancomycin for 5 days and patient will be sent home with clindamycin 300 mg 3 times a day for 7 days.. This morning I seen patient sitting up in bed comfortably. She does not have new complaints.. The swelling and erythema has completely subsided. Since patient has recurrent left facial cellulitis I advised the patient to see and surgeon if there is underlying parotid or submandibular salivary gland duct involvement. Physical Exam Vital Signs: Temp Pulse Resp BP Pulse Ox 98.1 F 55 L 16 147/75 H 96 11/23/17 07:30 11/23/17 07:30 11/23/17 07:30 11/23/17 07:30 11/23/17 07:30 Intake & Output 11/22/17 11/23/17 11/24/17 06:59 06:59 06:59 Intake Total 750 750 Balance 750 750 Weight 123.2 kg 121.4 kg General appearance: PRESENT: no acute distress, well-developed, well-nourished Head exam: PRESENT: atraumatic, normocephalic Eye exam: PRESENT: conjunctiva pink, EOMI, PERRLA. ABSENT: scleral icterus Ear exam: PRESENT: normal external ear exam Mouth exam: PRESENT: moist, tongue midline Neck exam: ABSENT: carotid bruit, JVD, lymphadenopathy, thyromegaly Respiratory exam: PRESENT: clear to auscultation guillermo. ABSENT: rales, rhonchi, wheezes Cardiovascular exam: PRESENT: RRR. ABSENT: diastolic murmur, rubs, systolic murmur Pulses: PRESENT: normal dorsalis pedis pul Vascular exam: PRESENT: normal capillary refill GI/Abdominal exam: PRESENT: normal bowel sounds, soft. ABSENT: distended, guarding, mass, organolmegaly, rebound, tenderness Rectal exam: PRESENT: deferred Extremities exam: PRESENT: full ROM. ABSENT: calf tenderness, clubbing, pedal edema Neurological exam: PRESENT: alert, awake, oriented to person, oriented to place , oriented to time, oriented to situation, CN II-XII grossly intact. ABSENT: motor sensory deficit Psychiatric exam: PRESENT: appropriate affect, normal mood. ABSENT: homicidal ideation, suicidal ideation Skin exam: PRESENT: dry, intact, warm. ABSENT: cyanosis, rash Results Laboratory Results: 11/20/17 06:20 11/20/17 06:20 11/20/17 09:43 Face - Right Side Abscess Gram Stain - Final 11/20/17 09:43 Face - Right Side Abscess Wound Culture - Final Staphylococcus Aureus Impressions: Soft Tissue Neck CT 11/19/17 11:31 IMPRESSION: Right subcutaneous facial soft tissue edema without focal abscess. Qualifiers - * PATIENT BEING DISCHARGED WITH ANY OF THE FOLLOWING DIAGNOSIS: No
[2017-11-23 09:22] VITALS: BP 163/82
--- NOTE | 2017-11-23 14:49 | PDOC PROGRESS REPORT ---
Subjective Progress Note for:: 11/22/17 Subjective:: Patient is awake alert oriented. This is not if she is not in pain or distress. Her only complaint is lack of sleep. But she refused to take a sleep aid. Patient is potential discharge for tomorrow. Reason For Visit: FASCIAL CELLULITIS Physical Exam Vital Signs: Temp Pulse Resp BP Pulse Ox 98.1 F 55 L 16 163/82 H 96 11/23/17 09:20 11/23/17 09:20 11/23/17 09:20 11/23/17 09:20 11/23/17 09:20 Intake & Output 11/22/17 11/23/17 11/24/17 06:59 06:59 06:59 Intake Total 750 750 250 Balance 750 750 250 Weight 123.2 kg 121.4 kg General appearance: PRESENT: no acute distress Head exam: PRESENT: atraumatic Eye exam: PRESENT: conjunctiva pink Mouth exam: PRESENT: moist Neck exam: PRESENT: other - The swelling and erythema of the left facial cellulitis has been improved remarkably. Results Laboratory Results: 11/20/17 06:20 11/20/17 06:20 11/20/17 09:43 Face - Right Side Abscess Gram Stain - Final 11/20/17 09:43 Face - Right Side Abscess Wound Culture - Final Staphylococcus Aureus Impressions: Soft Tissue Neck CT 11/19/17 11:31 IMPRESSION: Right subcutaneous facial soft tissue edema without focal abscess. Assessment & Plan - Diagnosis (1) Facial cellulitis,left Is this a current diagnosis for this admission?: Yes Plan: The swelling and erythema of the left facial cellulitis has been improved remarkably. (2) Hypertension Qualifiers: Hypertension type: essential hypertension Qualified Code(s): I10 - Essential (primary) hypertension Is this a current diagnosis for this admission?: Yes Plan: Continue home medication (3) Type 2 diabetes mellitus Qualifiers: Diabetes mellitus penitentiary insulin use: unspecified penitentiary insulin use status Diabetes mellitus complication status: without complication Qualified Code(s): E11.9 - Type 2 diabetes mellitus without complications Is this a current diagnosis for this admission?: Yes Plan: I will continue her home metformin thousand milligrams twice a day. In addition I will put her on sliding scale. (4) Fibromyalgia Is this a current diagnosis for this admission?: Yes Plan: Continue her home medication (5) Depression Is this a current diagnosis for this admission?: Yes Plan: Continue home medication (6) Tobacco dependence Is this a current diagnosis for this admission?: Yes Plan: Patient counseled and encouraged to quit smoking. (7) Obesity Is this a current diagnosis for this admission?: Yes Plan: Lifestyle modification advised.
== END 2017-11-23 09:59 | disposition home or self-care (01) | DRG 603 ==
LOC: ER 10:08 → EH 15:13 → 2N 17:35
PROVIDERS: ADMIT Internal Medicine; ATTEND Internal Medicine
DX: L03.211 Cellulitis of face (principal); Z68.42 Body mass index [BMI] 45.0-49.9, adult; E11.9 Type 2 diabetes mellitus without complications; I10 Essential (primary) hypertension; B95.61 Methicillin susceptible Staphylococcus aureus infection as the cause of diseases classified elsewhere; M79.7 Fibromyalgia; F32.9 Major depressive disorder, single episode, unspecified; E66.9 Obesity, unspecified; F17.210 Nicotine dependence, cigarettes, uncomplicated; Z91.19 Patient's noncompliance with other medical treatment and regimen; Z88.1 Allergy status to other antibiotic agents; Z88.8 Allergy status to other drugs, medicaments and biological substances; Z90.710 Acquired absence of both cervix and uterus; Z83.3 Family history of diabetes mellitus; Z82.49 Family history of ischemic heart disease and other diseases of the circulatory system; Z79.82 Long term (current) use of aspirin; Z79.899 Other long term (current) drug therapy
CPT/HCPCS: 36415; 70491; 80048; 80053; 80202; 82962; 83036; 85025; 87040; 87070; 87077; 87186; 87205; 96365; 96375; 96376; 99285; J1200; J1650; J1815; J2060; J2270; J3370; J7060; S0119

== ENCOUNTER 2018-01-22 14:23 | Emergency (ER) | payer SELFPAY ==
[2018-01-22] MEDS ORDERED: ONDANSETRON HCL INJ/PF 4 MG/2 ML SDV IV ONE (14:45)
[2018-01-22] MEDS ORDERED: NORMAL SALINE 1000 ML 1,000 ML IV ONE (14:45)
--- NOTE | 2018-01-22 14:47 | ER Document Report ---
ED Medical Screen (RME) - General Chief Complaint: Flank Pain Stated Complaint: FLANK PAIN Time Seen by Provider: 01/22/18 14:38 Notes: 52 years old female presents today with right flank pain radiating the groin for the last 3-4 days. Not associated with any dysuria frequency or hematuria. Nauseous no vomiting. Denies any fever chills or other constitutional symptoms. She states that she was under the care of pain clinic and was taking oxycodone until last October. Currently not taking anything except yesterday took 1 dose of oxycodone. Examination questionably in pain Addendum-she has failed 120 tablets of oxycodone 10 mg on 10/26/2017, this is the last fill prior to that she was feeling 120 every month. Every month according to the [place] controlled substance information. TRAVEL OUTSIDE OF THE [place] IN LAST 30 DAYS: No - Related Data Allergies/Adverse Reactions: ciprofloxacin [From Cipro] Allergy (Verified 10/01/17 10:25) gabapentin [Gabapentin] Allergy (Verified 10/01/17 10:25) ketorolac tromethamine [From Toradol] Allergy (Verified 10/01/17 10:25) pregabalin [From Lyrica] Allergy (Verified 10/01/17 10:25) Past Medical History - Social History Chew tobacco use (# tins/day): No Frequency of alcohol use: Occasional Drug Abuse: Marijuana - Past Medical History Cardiac Medical History: Reports: Hx Hypertension Endocrine Medical History: Reports: Hx Diabetes Mellitus Type 2 Renal/ Medical History: Denies: Hx Peritoneal Dialysis Musculoskeltal Medical History: Reports Hx Fibromyalgia Psychiatric Medical History: Reports: Hx Anxiety Denies: Hx Depression Past Surgical History: Reports: Hx Section - x2, Hx Hysterectomy, Hx Orthopedic Surgery - Right Knee - Immunizations Hx Diphtheria, Pertussis, Tetanus Vaccination: Yes History of Influenza Vaccine for 01/2017 - 06/2017 Season: No Physical Exam - Vital signs Vitals: Temp Pulse Resp BP Pulse Ox 98.0 F 67 18 168/75 H 97 01/22/18 14:27 01/22/18 14:27 01/22/18 14:27 01/22/18 14:27 01/22/18 14:27 Course - Vital Signs Vital signs: Temp Pulse Resp BP Pulse Ox 98.0 F 67 18 168/75 H 97 01/22/18 14:27 01/22/18 14:27 01/22/18 14:27 01/22/18 14:27 01/22/18 14:27 Doctor's Discharge - Discharge Referrals: YOBANI CHESTER MD [Primary Care Provider] - Follow up as needed
--- NOTE | 2018-01-22 15:26 | RADIOLOGY REPORT (SQ) ---
EXAM DESCRIPTION: ACUTE ABDOMEN SERIES COMPLETED DATE/TIME: 01/22/2018 3:15 pm REASON FOR STUDY: Abdominal pain COMPARISON: 02/17/2017 NUMBER OF VIEWS: Three views. TECHNIQUE: Frontal chest, supine abdomen and upright/decubitus abdomen radiographic images acquired. LIMITATIONS: None. FINDINGS: CHEST: Lungs clear of infiltrates. FREE AIR: None. No abnormal gas collections. BOWEL GAS PATTERN: Nonobstructive pattern. No dilated loops or air fluid levels. CALCIFICATIONS: No suspicious calcifications. HARDWARE: None in the abdomen. SOFT TISSUES: No gross mass or suggestion of organomegaly. BONES: No acute fracture. No worrisome bone lesions. OTHER: No other significant finding. IMPRESSION: NO RADIOGRAPHIC EVIDENCE FOR ACUTE ABDOMINAL DISEASE. TECHNICAL DOCUMENTATION: JOB ID: [id number] [place]-72 2010 [employer]- All Rights Reserved Reading location - IP/workstation name: [email or web address]
[2018-01-22 15:40] LABS: ABSOLUTE BASOPHILS # (AUTO) 0.1 10^3/uL (0.0-0.2); ABSOLUTE LYMPHOCYTES (AUTO) 2.4 10^3/uL (0.5-4.7); ABSOLUTE MONOCYTES (AUTO) 0.3 10^3/uL (0.1-1.4); ABSOLUTE NEUT (AUTO) 5.4 10^3/uL (1.7-8.2); BASOPHILS % (AUTO) 0.6 % (0-2); EOSINOPHILS % (AUTO) 0.5 % (0-6); HEMATOCRIT 43.5 % (36.0-47.0); HEMOGLOBIN 14.9 g/dL (12.0-15.5); LYMPHOCYTES % (AUTO) 29.3 % (13-45); MEAN CORPUSCULAR HEMOGLOBIN 32.9 pg (27.0-33.4); MEAN CORPUSCULAR HGB CONC 34.4 g/dL (32.0-36.0); MEAN CORPUSCULAR VOLUME 96 fl (80-97); MONOCYTES % (AUTO) 4.1 % (3-13); PLATELET COUNT 252 10^3/uL (150-450); RED BLOOD COUNT 4.54 10^6/uL (3.72-5.28); RED CELL DISTRIBUTION WIDTH 13.4 % (11.5-14.0); SEGMENTED NEUTROPHILS % (AUTO) 65.5 % (42-78); TOTAL CELLS COUNTED % (AUTO) 100 %; WHITE BLOOD COUNT 8.3 10^3/uL (4.0-10.5)
[2018-01-22 15:55] LABS: APPEARANCE,URINE SLIGHTLY-CLOUDY; BILIRUBIN,URINE NEGATIVE (NEGATIVE); COLOR,URINE YELLOW; GLUCOSE, URINE NEGATIVE (NEGATIVE); KETONES,URINE NEGATIVE (NEGATIVE); LEUKOCYTE ESTERASE,URINE NEGATIVE (NEGATIVE); NITRITE,URINE NEGATIVE (NEGATIVE); PROTEIN,URINE NEGATIVE (NEGATIVE); URINE SPECIFIC GRAVITY 1.026; UROBILINOGEN,URINE NEGATIVE mg/dL (<2.0)
[2018-01-22 16:01] LABS: URINE AMPHETAMINES SCREEN NEGATIVE; URINE BARBITURATES SCREEN NEGATIVE; URINE BENZODIAZEPINES SCREEN NEGATIVE; URINE COCAINE SCREEN NEGATIVE; URINE MARIJUANA (THC) SCREEN NEGATIVE; URINE METHADONE SCREEN NEGATIVE; URINE PHENCYCLIDINE SCREEN NEGATIVE
[2018-01-22] MEDS ORDERED: MORPHINE SULFATE 10 MG/ML INJ IV ONE ×2 (16:13→16:48)
--- NOTE | 2018-01-22 16:15 | ER Document Report ---
ED GI/ - General Chief Complaint: Flank Pain Stated Complaint: FLANK PAIN Time Seen by Provider: 01/22/18 14:38 Mode of Arrival: Ambulatory Information source: Patient Notes: Patient presents complaining of right side abdominal pain that radiates around to the right flank area. Patient states she has had pain off and on for 3 days that became worse today. Patient reports nausea. Patient denies any vomiting, fever, or urinary symptoms. Patient states she did have diarrhea bowel movement x1 today. TRAVEL OUTSIDE OF THE [place] IN LAST 30 DAYS: No - HPI Patient complains to provider of: Abdominal pain, Diarrhea, Flank pain. No: Vomiting Onset: Other - 3 days Timing/Duration: Worse Quality of pain: Sharp Pain Level: 4 Location: RLQ, Right flank Vaginal bleeding (Compared to normal period): None Associated symptoms: Nausea. denies: Fever, Loss of appetite, Urinary hesitancy , Urinary frequency, Urinary retention, Vaginal discharge, Vomiting Exacerbated by: Denies Relieved by: Denies Similar symptoms previously: No Recently seen / treated by doctor: No - Related Data Allergies/Adverse Reactions: ciprofloxacin [From Cipro] Allergy (Verified 10/01/17 10:25) gabapentin [Gabapentin] Allergy (Verified 10/01/17 10:25) ketorolac tromethamine [From Toradol] Allergy (Verified 10/01/17 10:25) pregabalin [From Lyrica] Allergy (Verified 10/01/17 10:25) Past Medical History - General Information source: Patient - Social History Smoking Status: Current Some Day Smoker Chew tobacco use (# tins/day): No Smoking Education Provided: Yes Frequency of alcohol use: Occasional Drug Abuse: Marijuana Occupation: None Family History: Reviewed & Not Pertinent Patient has suicidal ideation: No Patient has homicidal ideation: No - Past Medical History Cardiac Medical History: Reports: Hx Hypertension Endocrine Medical History: Reports: Hx Diabetes Mellitus Type 2 Renal/ Medical History: Denies: Hx Peritoneal Dialysis Musculoskeletal Medical History: Reports Hx Fibromyalgia Psychiatric Medical History: Reports: Hx Anxiety Denies: Hx Depression Past Surgical History: Reports: Hx Section - x2, Hx Hysterectomy, Hx Orthopedic Surgery - Right Knee - Immunizations Hx Diphtheria, Pertussis, Tetanus Vaccination: Yes Review of Systems - Review of Systems Constitutional: No symptoms reported. denies: Fever, Recent illness EENT: No symptoms reported Cardiovascular: No symptoms reported. denies: Chest pain Respiratory: No symptoms reported. denies: Cough, Short of breath Gastrointestinal: Abdominal pain, Diarrhea, Nausea. denies: Vomiting, Constipation Genitourinary: Flank pain. denies: Dysuria Female Genitourinary: No symptoms reported. denies: Vaginal discharge Musculoskeletal: Back pain Skin: No symptoms reported Hematologic/Lymphatic: No symptoms reported Neurological/Psychological: No symptoms reported Physical Exam - Vital signs Vitals: Temp Pulse Resp BP Pulse Ox 98.0 F 67 18 168/75 H 97 01/22/18 14:27 01/22/18 14:27 01/22/18 14:27 01/22/18 14:27 01/22/18 14:27 - General General appearance: Appears well, Alert In distress: None - HEENT Head: Normocephalic, Atraumatic Nasal: Normal Mouth/Lips: Normal Mucous membranes: Normal Neck: Normal, Supple - Respiratory Respiratory status: No respiratory distress Chest status: Nontender Breath sounds: Normal. No: Rales, Rhonchi, Stridor, Wheezing Chest palpation: Normal - Cardiovascular Rhythm: Regular Heart sounds: S1 appreciated, S2 appreciated Murmur: No - Abdominal Inspection: Morbidly Obese Distension: No distension Bowel sounds: Normal Tenderness: Tender - RLQ, Guarding - Back Back: CVA tenderness - right - Extremities General upper extremity: Normal inspection, Normal ROM General lower extremity: Normal inspection, Normal ROM - Neurological Neuro grossly intact: Yes Cognition: Normal Brooke Coma Scale Eye Opening: Spontaneous Brooke Coma Scale Verbal: Oriented Brooke Coma Scale Motor: Obeys Commands Brooke Coma Scale Total: 15 - Psychological Associated symptoms: Normal affect, Normal mood - Skin Skin Temperature: Warm Skin Moisture: Dry Skin Color: Normal Course - Re-evaluation Re-evalutation: 01/22/18 18:47 Patient presents with abdominal pain without signs of peritonitis or other life- threatening or serious etiology. Patient appears stable for discharge and has been instructed to return immediately if the symptoms worsen in any way, or in 8 -12 hours if not improved for reevaluation. The patient has been instructed to return if the symptoms worsen or change in any way. - Vital Signs Vital signs: Temp Pulse Resp BP Pulse Ox 98.0 F 64 18 154/80 H 98 01/22/18 14:27 01/22/18 18:55 01/22/18 18:55 01/22/18 18:55 01/22/18 18:55 - Laboratory Result Diagrams: 01/22/18 15:25 01/22/18 16:45 Laboratory results interpreted by me: 01/22/18 16:45 Potassium 5.2 H Glucose 131 H Direct Bilirubin 0.5 H Labs- Entire Visit 01/22/18 01/22/18 01/22/18 15:02 15:02 15:25 WBC 8.3 RBC 4.54 Hgb 14.9 Hct 43.5 MCV 96 MCH 32.9 MCHC 34.4 RDW 13.4 Plt Count 252 Seg Neutrophils % 65.5 Lymphocytes % 29.3 Monocytes % 4.1 Eosinophils % 0.5 Basophils % 0.6 Absolute Neutrophils 5.4 Absolute Lymphocytes 2.4 Absolute Monocytes 0.3 Absolute Eosinophils 0.0 Absolute Basophils 0.1 Sodium Potassium Chloride Carbon Dioxide Anion Gap BUN Creatinine Est GFR ( Amer) Est GFR (Non-Af Amer) Glucose Calcium Total Bilirubin Direct Bilirubin Neonat Total Bilirubin Neonat Direct Bilirubin Neonat Indirect Bili AST ALT Alkaline Phosphatase Total Protein Albumin Urine Color YELLOW Urine Appearance SLIGHTLY-CLOUDY Urine pH 7.0 Ur Specific Brewster 1.026 Urine Protein NEGATIVE Urine Glucose (UA) NEGATIVE Urine Ketones NEGATIVE Urine Blood NEGATIVE Urine Nitrite NEGATIVE Urine Bilirubin NEGATIVE Urine Urobilinogen NEGATIVE Ur Leukocyte Esterase NEGATIVE Urine WBC (Auto) 0 Urine RBC (Auto) 0 Squamous Epi Cells Auto 11 Urine Mucus (Auto) RARE Urine Ascorbic Acid NEGATIVE Urine Opiates Screen NEGATIVE Urine Methadone Screen NEGATIVE Ur Barbiturates Screen NEGATIVE Ur Phencyclidine Scrn NEGATIVE Ur Amphetamines Screen NEGATIVE U Benzodiazepines Scrn NEGATIVE Urine Cocaine Screen NEGATIVE U Marijuana (THC) Screen NEGATIVE 01/22/18 01/22/18 15:25 16:45 WBC RBC Hgb Hct MCV MCH MCHC RDW Plt Count Seg Neutrophils % Lymphocytes % Monocytes % Eosinophils % Basophils % Absolute Neutrophils Absolute Lymphocytes Absolute Monocytes Absolute Eosinophils Absolute Basophils Sodium Cancelled 139.6 Potassium Cancelled 5.2 H Chloride Cancelled 106 Carbon Dioxide Cancelled 28 Anion Gap Cancelled 6 BUN Cancelled 18 Creatinine Cancelled 0.75 Est GFR ( Amer) Cancelled > 60 Est GFR (Non-Af Amer) Cancelled > 60 Glucose Cancelled 131 H Calcium Cancelled 9.2 Total Bilirubin Cancelled 0.5 Direct Bilirubin Cancelled 0.5 H Neonat Total Bilirubin Cancelled Not Reportable Neonat Direct Bilirubin Cancelled Not Reportable Neonat Indirect Bili Cancelled Not Reportable AST Cancelled 20 ALT Cancelled 27 Alkaline Phosphatase Cancelled 61 Total Protein Cancelled 6.6 Albumin Cancelled 3.9 Urine Color Urine Appearance Urine pH Ur Specific Brewster Urine Protein Urine Glucose (UA) Urine Ketones Urine Blood Urine Nitrite Urine Bilirubin Urine Urobilinogen Ur Leukocyte Esterase Urine WBC (Auto) Urine RBC (Auto) Squamous Epi Cells Auto Urine Mucus (Auto) Urine Ascorbic Acid Urine Opiates Screen Urine Methadone Screen Ur Barbiturates Screen Ur Phencyclidine Scrn Ur Amphetamines Screen U Benzodiazepines Scrn Urine Cocaine Screen U Marijuana (THC) Screen - Diagnostic Test Radiology reviewed: Image reviewed, Reports reviewed Discharge - Discharge Clinical Impression: Flank pain Abdominal pain Qualifiers: Abdominal location: right lower quadrant Qualified Code(s): R10.31 - Right lower quadrant pain Condition: Stable Disposition: HOME, SELF-CARE Instructions: Abdominal Pain ([facility]), Antispasmodics ([facility]), Flank Pain ([facility]) Additional Instructions: Return immediately for any new or worsening symptoms Followup with your primary care provider, call tomorrow to make a followup appointment Prescriptions: Dicyclomine HCl [Bentyl 20 mg Tablet] 20 mg PO QID #10 tablet Ondansetron HCl [Zofran 4 mg Tablet] 1 - 2 tab PO Q6 PRN #10 tablet PRN Reason: Forms: Smoking Cessation Education Referrals: YOBANI CHESTER MD [Primary Care Provider] - 01/24/18
[2018-01-22 17:27] LABS: ALANINE AMINOTRANSFERASE 27 U/L (9-52); ALBUMIN 3.9 g/dL (3.5-5.0); ALKALINE PHOSPHATASE 61 U/L (38-126); ANION GAP 6 (5-19); ASPARTATE AMINO TRANSFERASE 20 U/L (14-36); BILIRUBIN,DIRECT 0.5 mg/dL (0.0-0.4); BILIRUBIN,TOTAL 0.5 mg/dL (0.2-1.3); BLOOD UREA NITROGEN 18 mg/dL (7-20); CALCIUM 9.2 mg/dL (8.4-10.2); CARBON DIOXIDE 28 mmol/L (22-30); CHLORIDE 106 mmol/L (98-107); GLUCOSE 131 mg/dL (75-110); POTASSIUM 5.2 mmol/L (3.6-5.0); SODIUM 139.6 mmol/L (137-145); TOTAL PROTEIN 6.6 g/dL (6.3-8.2)
--- NOTE | 2018-01-22 18:44 | RADIOLOGY REPORT (SQ) ---
EXAM DESCRIPTION: CT ABD/PELVIS WITH IV ONLY COMPLETED DATE/TIME: 01/22/2018 6:13 pm REASON FOR STUDY: r flank, RLQ tenderness COMPARISON: 04/01/2016 TECHNIQUE: CT scan of the abdomen and pelvis performed using helical scanning technique with dynamic intravenous contrast injection. No oral contrast. Images reviewed with lung, soft tissue, and bone w indows. Reconstructed coronal and sagittal MPR images reviewed. Delayed images for evaluation of the urinary system also acquired. All images stored on PACS. All CT scanners at this facility use dose modulation, iterative reconstruction, and/or weight based d osing when appropriate to reduce radiation dose to as low as reasonably achievable (ALARA). [facility]: Dose Right [facility]: CareDose [facility]: Dose Right [facility]: Teradose 4D [facility]: Market6 CONTRAST TYPE AND DOSE: contrast/concentration: Isovue 350.00 mg/ml; Total Contrast Delivered: 100.0 ml; Total Saline Delivered: 72.0 ml RENAL FUNCTION: GFR > 60. RADIATION DOSE: CT Rad equipment meets quality standard of care and radiation dose reduction techniq ues were employed. CTDIvol: 20.2 - 20.7 mGy. DLP: 2169 mGy-cm.. LIMITATIONS: None. FINDINGS: LOWER CHEST: No significant findings. LIVER: Normal size. No enhancing masses. No dilated ducts. SPLEEN: Normal size. No focal lesions. PANCREAS: No masses identified. No significant calcifications. No adjacent inflammation or peripancre atic fluid collections. Pancreatic duct not dilated. GALLBLADDER: No calcified stones. No inflammatory changes to suggest cholecystitis. ADRENAL GLANDS: No significant masses. RIGHT KIDNEY AND URETER: No cysts identified. No solid masses identified. No calcified stones. No hyd ronephrosis or hydroureter. LEFT KIDNEY AND URETER: No cysts identified. No solid masses identified. No calcified stones. No hydr onephrosis or hydroureter. AORTA AND VESSELS: No aneurysm. No dissection. Renal arteries, SMA, celiac without significant stenos is. RETROPERITONEUM: No bulky retroperitoneal adenopathy. BOWEL AND PERITONEAL CAVITY: No obstruction or inflammatory changes. No free fluid. APPENDIX: Normal. PELVIS: Prior hysterectomy. No free fluid. Unremarkable bladder. ABDOMINAL WALL: No masses. No hernias. BONES: No acute findings. OTHER: No other significant finding. IMPRESSION: NO ACUTE FINDINGS IN THE ABDOMEN OR PELVIS ON CT SCAN WITH IV CONTRAST. TECHNICAL DOCUMENTATION: JOB ID: [id number] [place]-72 Quality ID # [id number]: Final reports with documentation of one or more dose reduction techniques (e.g., Au tomated exposure control, adjustment of the mA and/or kV according to patient size, use of iterative reconstruction technique) 2010 [employer]- All Rights Reserved Reading location - IP/workstation name: [email or web address]
[2018-01-22 18:55] VITALS: BP 154/80
== END 2018-01-22 19:01 | disposition home or self-care (01) ==
LOC: ER 14:23
DX: R10.9 Unspecified abdominal pain (principal); R10.31 Right lower quadrant pain; R11.0 Nausea; R19.7 Diarrhea, unspecified; M54.9 Dorsalgia, unspecified; F17.200 Nicotine dependence, unspecified, uncomplicated; I10 Essential (primary) hypertension; E11.9 Type 2 diabetes mellitus without complications; Z88.1 Allergy status to other antibiotic agents; Z88.6 Allergy status to analgesic agent; Z88.8 Allergy status to other drugs, medicaments and biological substances; Z90.710 Acquired absence of both cervix and uterus
CPT/HCPCS: 96376; 99284; 96361; 96374; 96375; 36415; 85025; 80053; 81001; 80307; 74022; 74177; J2270; J2405

== ENCOUNTER 2018-02-27 23:11 | Emergency (ER) | payer SELFPAY ==
[2018-02-27] MEDS ORDERED: CLINDAMYCIN HCL 150 MG CAPSULE PO ONE (23:58)
[2018-02-27] MEDS ORDERED: MORPHINE SULFATE 10 MG/ML INJ IM ONE (23:58)
[2018-02-28] MEDS ORDERED: ONDANSETRON 4 MG TAB.RAPDIS PO ONE (00:02)
--- NOTE | 2018-02-28 00:15 | ER Document Report ---
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 Patient states that she recently broke out with pimples all over her face a few days ago. She admits to continuously picking at her face. She has excoriations all over her upper extremities. She denies any fever, chills, chest pain, shortness of breath, abdominal pain, dysuria, hematuria. She does admit to nausea without vomiting. TRAVEL OUTSIDE OF THE [place] IN LAST 30 DAYS: No - HPI Onset: Other Onset/Duration: Gradual Quality of pain: Throbbing Severity: Moderate Associated symptoms: Earache, Nausea, Other - Facial pain. denies: Chest pain, Vomiting, Shortness of breath Exacerbated by: Other - Opening her mouth Relieved by: Denies Similar symptoms previously: Yes Recently seen / treated by doctor: Yes - Related Data Allergies/Adverse Reactions: ciprofloxacin [From Cipro] Allergy (Verified 10/01/17 10:25) gabapentin [Gabapentin] Allergy (Verified 10/01/17 10:25) ketorolac tromethamine [From Toradol] Allergy (Verified 10/01/17 10:25) pregabalin [From Lyrica] Allergy (Verified 10/01/17 10:25) Past Medical History - General Information source: Patient - Social History Smoking Status: Current Every Day Smoker Cigarette use (# per day): Yes - 15 Smoking Education Provided: Yes - Smoking cessation Frequency of alcohol use: None Drug Abuse: None Lives with: Alone Family History: Reviewed & Not Pertinent Patient has suicidal ideation: No Patient has homicidal ideation: No - Past Medical History Cardiac Medical History: Reports: Hx Hypertension Endocrine Medical History: Reports: Hx Diabetes Mellitus Type 2 Renal/ Medical History: Denies: Hx Peritoneal Dialysis Musculoskeletal Medical History: Reports Hx Fibromyalgia Psychiatric Medical History: Reports: Hx Anxiety Denies: Hx Depression Past Surgical History: Reports: Hx Section - x2, Hx Hysterectomy, Hx Orthopedic Surgery - Right Knee - Immunizations Hx Diphtheria, Pertussis, Tetanus Vaccination: Yes Review of Systems - Review of Systems Notes: REVIEW OF SYSTEMS: CONSTITUTIONAL : Denies fever, chills, or sweats. Denies recent illness. Denies weight loss, recent hospitalizations. EENT: Denies visual changes, eye pain. Denies sore throat, oral lesions, difficulty swallowing. CARDIOVASCULAR: Denies chest pain. Denies palpitations. Denies lower extremity edema. RESPIRATORY: Denies cough. Denies shortness of breath, wheezing. GASTROINTESTINAL: Denies abdominal pain or distention. Denies vomiting, or diarrhea. Denies blood in vomitus, stools, or per rectum. Denies black, tarry stools. Denies constipation. GENITOURINARY: Denies difficulty urinating, painful urination, frequency, blood in urine, or vaginal discharge. MUSCULOSKELETAL: Denies back or neck pain or stiffness. Denies joint pain or swelling. SKIN: Denies rash, lesions or sores. HEMATOLOGIC : Denies easy bruising or bleeding. LYMPHATIC: Denies swollen glands. NEUROLOGICAL: Denies confusion or altered mental status. Denies loss of consciousness. Denies dizziness or lightheadedness. Denies headache. Denies weakness or paralysis. Denies problems difficulty with ambulation, slurred speech. Denies sensory loss, numbness, or tingling. Denies seizures. PSYCHIATRIC: Denies anxiety or stress. Denies depression, suicidal ideation, or homicidal ideation. Denies visual or auditory hallucinations. Physical Exam - Vital signs Vitals: Temp Pulse Resp BP Pulse Ox 98.7 F 74 16 160/80 H 99 02/27/18 23:30 02/27/18 23:30 02/27/18 23:30 02/27/18 23:30 02/27/18 23:30 Interpretation: No: Febrile - Notes Notes: PHYSICAL EXAMINATION: GENERAL: Well-appearing, well-nourished and in no acute distress. HEAD: Atraumatic, normocephalic. EYES: Pupils equal round and reactive to light, extraocular movements intact, conjunctiva are normal. ENT: Nares patent, oropharynx clear without exudates. Moist mucous membranes. No dental abscess. No dental pain. No facial swelling, erythema, fluctuance. Left TM erythematous, bulging. NECK: Normal range of motion, supple, positive cervical anterior lymphadenopathy LUNGS: Breath sounds clear to auscultation bilaterally and equal. No wheezes rales or rhonchi. HEART: Regular rate and rhythm without murmurs ABDOMEN: Soft, nontender, nondistended abdomen. No guarding, no rebound. No masses appreciated. Female : deferred Musculoskeletal: Normal range of motion, no pitting or edema. No cyanosis. NEUROLOGICAL: Cranial nerves grossly intact. Normal speech, normal gait. Normal sensory, motor exams PSYCH: Normal mood, normal affect. SKIN: Multiple excoriations to the face, upper extremities. Course - Re-evaluation Re-evalutation: 02/28/18 01:53 52-year-old female presents with left ear pain and left facial pain and swelling. Vital signs stable upon arrival. Patient does not appear toxic or dehydrated. She is in mild distress and tearful upon my exam. Her face does have multiple self-induced excoriations but is without erythema, induration or fluctuance. Patient does have self-induced excoriations all over her body. No evidence of dental abscess or sublingual edema. Patient does have a very erythematous and bulging left TM. Patient is claiming 5 out of 5 pain. Patient was administered IM morphine, clindamycin. As of right now patient has no evidence of facial cellulitis. Patient was evaluated and treated as appropriate for the patient's presenting symptoms and complaint, with consideration of any critical or life threatening conditions that may be associated with their obtained history and exam as noted above. All results were discussed with patient. Patient provided the opportunity to ask questions, and express concerns. Patient was educated on treatments based on their presumed diagnosis as noted above. At this time we will discharge the patient with return precautions and follow-up recommendations. Verbal discharge instructions given a the bedside. Medication warnings reviewed. Patient is in agreement with this plan and has verbalized understanding of return precautions. After careful consideration I feel that that patient can be safely discharged from the emergency department, they were advised to followup with a primary care physician in 2-3 days. Dictation on this chart was performed using voice recognition software and may result in unintended grammatical, spelling, syntax or errors. - Vital Signs Vital signs: Temp Pulse Resp BP Pulse Ox 98.4 F 70 16 175/89 H 97 02/28/18 01:04 02/28/18 01:04 02/28/18 01:04 02/28/18 01:04 02/28/18 01:04 Discharge - Discharge Clinical Impression: Skin excoriation, Left ear pain, Left facial pain, Fibromyalgia Hypertension Qualifiers: Hypertension type: unspecified Qualified Code(s): I10 - Essential (primary) hypertension Condition: Good Disposition: HOME, SELF-CARE Instructions: Otitis Media ([facility]) Additional Instructions: Your exam is not consistent with an infection of your face. I do suggest that you stop picking at your skin of your face with your fingernails as this could introduce bacteria. Follow up with your [id number] hours for further care or return to the ED IMMEDIATELY if symptoms worsen or you have any concerns. If you cannot afford to follow up with your primary care physician a list of low cost clinics have been provided at the end of your discharge papers as well. Most prescribed medications have multiple side effects. The safest thing to do is when filling your prescription speak to your pharmacist regarding possible interactions with your normal home medications and over the counter medications such as Ibuprofen, Tylenol, Benadryl. If you experience any symptoms that cause you discomfort or concern you should discontinue the medication immediately and return to the emergency room or call your primary care physician. Prescriptions: Clindamycin HCl 300 mg PO TID 10 Days #60 capsule Tramadol HCl 50 mg PO Q8H #6 tablet Forms: Elevated Blood Pressure Referrals: YOBANI CHESTER MD [Primary Care Provider] - Follow up as needed
[2018-02-28 01:07] VITALS: BP 175/89
== END 2018-02-28 01:07 | disposition home or self-care (01) ==
LOC: ER 23:11
DX: R51 Headache (principal); M79.10 Myalgia, unspecified site; F41.9 Anxiety disorder, unspecified; L08.9 Local infection of the skin and subcutaneous tissue, unspecified; H92.02 Otalgia, left ear; I10 Essential (primary) hypertension; R11.0 Nausea; F17.210 Nicotine dependence, cigarettes, uncomplicated; E11.9 Type 2 diabetes mellitus without complications; Z88.3 Allergy status to other anti-infective agents; Z90.710 Acquired absence of both cervix and uterus
CPT/HCPCS: 99283; 96372; S0119; J2270

== ENCOUNTER 2018-03-01 20:52 | Emergency (ER) | payer SELFPAY ==
[2018-03-01 22:43] LABS: ABSOLUTE BASOPHILS # (AUTO) 0.1 10^3/uL (0.0-0.2); ABSOLUTE EOSINOPHILS # (AUTO) 0.1 10^3/uL (0.0-0.6); ABSOLUTE LYMPHOCYTES (AUTO) 2.7 10^3/uL (0.5-4.7); ABSOLUTE MONOCYTES (AUTO) 0.3 10^3/uL (0.1-1.4); ABSOLUTE NEUT (AUTO) 4.6 10^3/uL (1.7-8.2); BASOPHILS % (AUTO) 1.2 % (0-2); EOSINOPHILS % (AUTO) 1.1 % (0-6); HEMOGLOBIN 14.4 g/dL (12.0-15.5); LYMPHOCYTES % (AUTO) 34.6 % (13-45); MEAN CORPUSCULAR HEMOGLOBIN 33.8 pg (27.0-33.4); MEAN CORPUSCULAR VOLUME 97 fl (80-97); MONOCYTES % (AUTO) 4.3 % (3-13); PLATELET COUNT 220 10^3/uL (150-450); RED BLOOD COUNT 4.25 10^6/uL (3.72-5.28); RED CELL DISTRIBUTION WIDTH 13.3 % (11.5-14.0); SEGMENTED NEUTROPHILS % (AUTO) 58.8 % (42-78); TOTAL CELLS COUNTED % (AUTO) 100 %; WHITE BLOOD COUNT 7.9 10^3/uL (4.0-10.5)
[2018-03-01 22:49] LABS: APPEARANCE,URINE SLIGHTLY-CLOUDY; BILIRUBIN,URINE NEGATIVE (NEGATIVE); COLOR,URINE YELLOW; GLUCOSE, URINE NEGATIVE (NEGATIVE); KETONES,URINE NEGATIVE (NEGATIVE); LEUKOCYTE ESTERASE,URINE NEGATIVE (NEGATIVE); NITRITE,URINE NEGATIVE (NEGATIVE); PROTEIN,URINE NEGATIVE (NEGATIVE); URINE SPECIFIC GRAVITY 1.018; UROBILINOGEN,URINE NEGATIVE mg/dL (<2.0)
[2018-03-01] MEDS ORDERED: ONDANSETRON HCL INJ/PF 4 MG/2 ML SDV IV ONE (22:56)
[2018-03-01] MEDS ORDERED: NORMAL SALINE 500 ML IV ONE (22:56)
[2018-03-01 22:58] LABS: ALANINE AMINOTRANSFERASE 25 U/L (9-52); ALBUMIN 4.1 g/dL (3.5-5.0); ALKALINE PHOSPHATASE 67 U/L (38-126); ANION GAP 11 (5-19); ASPARTATE AMINO TRANSFERASE 19 U/L (14-36); BILIRUBIN,DIRECT 0.1 mg/dL (0.0-0.4); BILIRUBIN,TOTAL 0.3 mg/dL (0.2-1.3); BLOOD UREA NITROGEN 16 mg/dL (7-20); CALCIUM 9.8 mg/dL (8.4-10.2); CARBON DIOXIDE 30 mmol/L (22-30); CHLORIDE 102 mmol/L (98-107); GLUCOSE 128 mg/dL (75-110); POTASSIUM 4.7 mmol/L (3.6-5.0); SODIUM 143.2 mmol/L (137-145); TOTAL PROTEIN 6.9 g/dL (6.3-8.2)
--- NOTE | 2018-03-01 23:06 | ER Document Report ---
ED General - General Chief Complaint: Pain Stated Complaint: FACIAL SWELLING Time Seen by Provider: 03/01/18 22:18 Mode of Arrival: Ambulatory Information source: Patient Notes: 52-year-old female presented to ED for complaint of left side of face neck and head and ear pain. She was seen here recently for the same condition diagnosed with cellulitis. She states the pain is worse and she has been taken the clindamycin with no relief. She states that they gave her Ultram and that is not helping with her pain. She states she is not able to take NSAIDs due to allergy to Toradol. She is alert oriented respirations regular and unlabored speaking in full sentences. She is walking but states it is very painful to walk. She does have a history of fibromyalgia. Patient does have multiple pink wounds to her face arms and abdomen. She states she picks at herself. TRAVEL OUTSIDE OF THE [place] IN LAST 30 DAYS: No - HPI Onset: Last week Onset/Duration: Persistent Quality of pain: Sharp Severity: Moderate Pain Level: 4 Associated symptoms: Other - Pain to the neck ears face that is getting worse and is not getting better with the Exacerbated by: Denies Relieved by: Denies Similar symptoms previously: Yes Recently seen / treated by doctor: Yes - Related Data Allergies/Adverse Reactions: ciprofloxacin [From Cipro] Allergy (Verified 10/01/17 10:25) gabapentin [Gabapentin] Allergy (Verified 10/01/17 10:25) ketorolac tromethamine [From Toradol] Allergy (Verified 10/01/17 10:25) pregabalin [From Lyrica] Allergy (Verified 10/01/17 10:25) Past Medical History - General Information source: Patient - Social History Smoking Status: Never Smoker Cigarette use (# per day): No Chew tobacco use (# tins/day): No Smoking Education Provided: No Frequency of alcohol use: Rare Drug Abuse: None Lives with: Alone Family History: Reviewed & Not Pertinent Patient has suicidal ideation: No Patient has homicidal ideation: No - Past Medical History Cardiac Medical History: Reports: Hx Hypertension Pulmonary Medical History: Reports: None EENT Medical History: Reports: None Neurological Medical History: Reports: None Endocrine Medical History: Reports: Hx Diabetes Mellitus Type 2 Renal/ Medical History: Reports: None Malignancy Medical History: Reports: None GI Medical History: Reports: None Musculoskeletal Medical History: Reports Hx Fibromyalgia, Reports Hx Musculoskeletal Deformity, Reports Hx Musculoskeletal Trauma Skin Medical History: Reports Hx Cellulitis Psychiatric Medical History: Reports: Hx Anxiety Traumatic Medical History: Reports: None Infectious Medical History: Reports: None Past Surgical History: Reports: Hx Section - x2, Hx Hysterectomy, Hx Orthopedic Surgery - Right Knee - Immunizations Immunizations up to date: Yes Hx Diphtheria, Pertussis, Tetanus Vaccination: Yes Review of Systems - Review of Systems Constitutional: No symptoms reported EENT: Ear pain, Throat pain, Other - left head, neck, throat, and ear pain Cardiovascular: No symptoms reported Respiratory: No symptoms reported Gastrointestinal: No symptoms reported Genitourinary: No symptoms reported Female Genitourinary: No symptoms reported Musculoskeletal: No symptoms reported Skin: No symptoms reported Hematologic/Lymphatic: No symptoms reported Neurological/Psychological: No symptoms reported -: Yes All other systems reviewed and negative Physical Exam - Vital signs Vitals: Temp Pulse Resp BP Pulse Ox 99.0 F 67 18 147/78 H 97 03/01/18 20:59 03/01/18 20:59 03/01/18 20:59 03/01/18 20:59 03/01/18 20:59 Interpretation: Normal - General General appearance: Appears well, Alert - HEENT Head: Normocephalic, Atraumatic Eyes: Normal Pupils: PERRL Ears: Other - pain left ear External canal: Normal Tympanic membrane: Normal Sinus: Normal Nasal: Normal Mouth/Lips: Normal Mucous membranes: Normal Pharynx: Normal Neck: Normal - Respiratory Respiratory status: No respiratory distress Chest status: Nontender Breath sounds: Normal Chest palpation: Normal - Cardiovascular Rhythm: Regular Heart sounds: Normal auscultation Murmur: No - Abdominal Inspection: Normal Distension: No distension Bowel sounds: Normal Tenderness: Nontender Organomegaly: No organomegaly - Back Back: Normal, Nontender - Extremities General upper extremity: Normal inspection, Nontender, Normal color, Normal ROM , Normal temperature General lower extremity: Normal inspection, Nontender, Normal color, Normal ROM , Normal temperature, Normal weight bearing. No: Jose Enrique's sign - Neurological Neuro grossly intact: Yes Cognition: Normal Orientation: AAOx4 [place] Coma Scale Eye Opening: Spontaneous [place] Coma Scale Verbal: Oriented [place] Coma Scale Motor: Obeys Commands [place] Coma Scale Total: 15 Speech: Normal Motor strength normal: LUE, RUE, LLE, RLE Sensory: Normal - Psychological Associated symptoms: Normal affect, Normal mood - Skin Skin Temperature: Warm Skin Moisture: Dry Skin Color: Normal Location of irregularity: Other - Multiple scabbed areas to bilateral arms neck and face were patient states she continually picks at herself. Course - Re-evaluation Re-evalutation: 03/02/18 00:20 Labs discussed with patient and written report of labs given to patient. Patient instructed to follow-up with primary doctor. Patient was given a prescription for Phenergan as she states she has nausea intermittently. She was given Zofran in the emergency room and no longer has any nausea at this time. Patient was treated with viscous lidocaine to the ear for her ear pain. She states it did help but she took the cottonball out because it made her ear now. I explained to her this is the way the medicine works to get rid of her pain. Patient was discharged home to follow-up with her primary doctor. - Vital Signs Vital signs: Temp Pulse Resp BP Pulse Ox 98.1 F 70 14 140/78 H 98 03/02/18 00:40 03/02/18 00:40 03/02/18 00:40 03/02/18 00:40 03/02/18 00:40 - Laboratory Result Diagrams: 03/01/18 22:31 03/01/18 22:31 Laboratory results interpreted by me: 03/01/18 03/01/18 22:31 22:31 MCH 33.8 H Glucose 128 H Discharge - Discharge Clinical Impression: Otalgia of left ear, Left facial pain Condition: Stable Disposition: HOME, SELF-CARE Additional Instructions: You were seen today for pain in your left ear, left face, and left neck. You do not have an ear infection. Your labs CBC and chemistry and urine do not show any signs of infection or abnormalities except for a slightly elevated glucose and your diabetic. You will be given 1 pain medication [place] while you are in the emergency room and then you will be discharged with instructions to follow-up with a local primary doctor. Acetaminophen Acetaminophen may be taken for pain relief or fever control. It's much safer than aspirin, offering a wider range of "safe" dosages. It is safe during . Some brand names are Tylenol, Panadol, Datril, Anacin 3, Tempra, and Liquiprin. Acetaminophen can be repeated every four hours. The following are maximum recommended dosages: WEIGHT Dose Drops Elixir Chewable( 80mg) (LBS.) drprs=droppers tsp=teaspoon 6 40 mg .4 ml (1/2) 6-11 80 mg .8 ml (full) 1/2 tsp 1 tab 12-16 120 mg 1 1/2 drprs 3/4 tsp 1 1/2 tabs 17-23 160 mg 2 drprs 1 tsp 2 tabs 24-30 240 mg 3 drprs 1 1/2 tsp 3 tabs 30-35 320 mg 2 tsp 4 tabs 36-41 360 mg 2 1/4 tsp 4 1 /2 tabs 42-47 400 mg 2 1/2 tsp 5 tabs 48-53 480 mg 3 tsp 6 tabs 54-59 520 mg 3 1/4 tsp 6 1 /2 tabs 60-64 560 mg 3 1/2 tsp 7 tabs 65-70 600 mg 3 3/4 tsp 7 1 /2 tabs 71-76 640 mg 4 tsp 8 tabs 77-82 720 mg 4 1/2 tsp 9 tabs 83-88 800 mg 5 tsp 10 tabs >89 pounds or adults 650 mg to 900 mg Acetaminophen can be repeated every four hours. Maximum daily dose not to exceed 4000 mg. These maximum recommended dosages are slightly higher than the dosages written on the product container, but these dosages are very safe and well below the toxic dosage for acetaminophen. You have been given a syringe of viscous lidocaine. You can put 1 cc of this medication in your ear every 4 hours as needed for pain. You then placed cotton ball behind the medication to keep it in place. It will make your ear feel numb but it will take away any pain in your ear. Do not use this any more often than every 4 hours. You have stated you had some nausea so I am given you a prescription for Phenergan. You received some IV fluids and Zofran while in the emergency room for your nausea. FOLLOW-UP CARE: If you have been referred to a physician for follow-up care, call the physician s office for an appointment as you were instructed or within the next two days. If you experience worsening or a significant change in your symptoms, notify the physician immediately or return to the Emergency Department at any time for re-evaluation. Prescriptions: Promethazine HCl [Phenergan 25 mg Tablet] 25 mg PO Q6H PRN #15 tablet PRN Reason: Forms: Elevated Blood Pressure Referrals: YOBANI CHESTER MD [Primary Care Provider] - Follow up as needed
[2018-03-01] MEDS ORDERED: LIDOCAINE 2% VISCOUS SOLN 20 ML UDCUP PO ONE (23:17)
[2018-03-01 23:39] LABS: URINE AMPHETAMINES SCREEN NEGATIVE; URINE BARBITURATES SCREEN NEGATIVE; URINE BENZODIAZEPINES SCREEN NEGATIVE; URINE COCAINE SCREEN NEGATIVE; URINE MARIJUANA (THC) SCREEN NEGATIVE; URINE METHADONE SCREEN NEGATIVE; URINE PHENCYCLIDINE SCREEN NEGATIVE
[2018-03-02] MEDS ORDERED: HYDROCODONE/ACETAMINOPHEN 5-325 MG TABLET PO ONE (00:13)
[2018-03-02 00:41] VITALS: BP 140/78
== END 2018-03-02 00:40 | disposition home or self-care (01) ==
LOC: ER 20:52
DX: H92.02 Otalgia, left ear (principal); R51 Headache; R22.0 Localized swelling, mass and lump, head; M54.2 Cervicalgia; I10 Essential (primary) hypertension; E11.9 Type 2 diabetes mellitus without complications
CPT/HCPCS: 99283; 96361; 96374; 36415; 87086; 85025; 80053; 81001; 80307; J3490; J2405; J7040

== ENCOUNTER 2018-04-22 15:19 | Emergency (ER) | payer SELFPAY ==
[2018-04-22] MEDS ORDERED: DIPH/PERTUSS(ACELL)/TETANUS VAC/PF 0.5 ML SYR (>=10YO) IM ONE (15:47)
[2018-04-22] MEDS ORDERED: HYDROCODONE/ACETAMINOPHEN 5-325 MG TABLET PO ONE (15:48)
[2018-04-22] MEDS ORDERED: AMOXICILLIN TR/POT CLAVULANATE 500-125 MG TAB PO ONE (15:48)
[2018-04-22] MEDS ORDERED: AMOXICILLIN TRIHYD 250 MG CAPSULE PO ONE (15:48)
--- NOTE | 2018-04-22 15:53 | ER Document Report ---
HPI - HPI Patient complains to provider of: Dog bite Time Seen by Provider: 04/22/18 15:37 Onset: Yesterday Onset/Duration: Persistent Quality of pain: Achy Pain Level: 4 Context: Patient states that she was stepping over someone who was lying down on the ground and whenever she did the dog got possessive and bit her right foot. After the dog bit her foot it caused her to roll her ankle and landed on her right knee. Patient complains of right ankle, right knee pain and dog bite to the foot. Patient is uncertain when her last tetanus immunization was. Patient does state that the animals immunizations are currently up-to-date Associated Symptoms: Other - Puncture wound to foot, right knee injury, right ankle pain. denies: Fever Exacerbated by: Standing, Movement, Walking Relieved by: Denies Similar symptoms previously: Yes - Chronic right knee pain Recently seen / treated by doctor: No - ROS ROS below otherwise negative: Yes Systems Reviewed and Negative: Yes All other systems reviewed and negative - CONSTITUTIONAL Constitutional: DENIES: Fever - NEURO Neurology: DENIES: Weakness - GASTROINTESTINAL Gastrointestinal: DENIES: Nausea, Patient vomiting - REPRODUCTIVE Reproductive: DENIES: : - MUSCULOSKELETAL Musculoskeletal: REPORTS: Extremity pain, Swelling - DERM Skin Color: Normal Skin Problems: Puncture Wound Past Medical History - General Information source: Patient - Social History Smoking Status: Current Every Day Smoker Smoking Education Provided: Yes Frequency of alcohol use: None Drug Abuse: None Occupation: None Family History: Reviewed & Not Pertinent - Past Medical History Cardiac Medical History: Reports: Hx Hypertension Endocrine Medical History: Reports: Hx Diabetes Mellitus Type 2 Renal/ Medical History: Denies: Hx Peritoneal Dialysis Musculoskeletal Medical History: Reports Hx Fibromyalgia, Reports Hx Musculoskeletal Deformity, Reports Hx Musculoskeletal Trauma Skin Medical History: Reports Hx Cellulitis Psychiatric Medical History: Reports: Hx Anxiety, Hx Depression Past Surgical History: Reports: Hx Section - x2, Hx Hysterectomy, Hx Orthopedic Surgery - Right Knee - Immunizations Immunizations up to date: Yes Hx Diphtheria, Pertussis, Tetanus Vaccination: Yes Vertical Provider Document - CONSTITUTIONAL Agree With Documented VS: Yes Exam Limitations: No Limitations General Appearance: WD/WN, No Apparent Distress - INFECTION CONTROL TRAVEL OUTSIDE OF THE [place] IN LAST 30 DAYS: No - HEENT HEENT: Atraumatic, Normocephalic - NECK Neck: Normal Inspection - RESPIRATORY Respiratory: No Respiratory Distress - CARDIOVASCULAR Pulses: Normal: Dorsalis pedis - BACK Back: Normal Inspection - MUSCULOSKELETAL/EXTREMETIES Musculoskeletal/Extremeties: MAEW, Tender - Patient with right knee joint tenderness along the joint line and upper lateral compartment, no laxity with varus or valgus maneuvers. Patient with subtle fullness worrisome for effusion. Right ankle tenderness over lateral malleolar area, no edema or deformity. Patient with ecchymosis to the dorsal aspect of right foot at the base of toes 4 and 5. Patient with superficial abrasions overlying the dorsal aspect of foot, puncture wound to plantar surface of right foot. No surrounding erythema. Course - Re-evaluation Re-evalutation: 04/22/18 16:56 Patient now reporting tenderness to middle third of right lower leg. Additional x-rays ordered. - Vital Signs Vital signs: Temp Pulse Resp BP Pulse Ox 99.4 F 81 16 155/89 H 95 04/22/18 15:30 04/22/18 15:30 04/22/18 15:30 04/22/18 15:30 04/22/18 15:30 - Diagnostic Test Radiology reviewed: Image reviewed, Reports reviewed Procedures - Immobilization Right Knee Pre-Proc Neuro Vasc Exam: Normal Immobilizer type: Pradeep wrap Performed by: PCT Post-Proc Neuro Vasc Exam: Normal Alignment checked and good: Yes Right Ankle Pre-Proc Neuro Vasc Exam: Normal Immobilizer type: Ankle stirrup Performed by: PCT Post-Proc Neuro Vasc Exam: Normal Alignment checked and good: Yes Discharge - Discharge Clinical Impression: Effusion, right knee, Pain of right tibia Dog bite Qualifiers: Encounter type: initial encounter Qualified Code(s): W54.0XXA - Bitten by dog, initial encounter Knee sprain Qualifiers: Encounter type: initial encounter Involved ligament of knee: unspecified ligament Laterality: right Qualified Code(s): S83.91XA - Sprain of unspecified site of right knee, initial encounter Right ankle sprain Qualifiers: Encounter type: initial encounter Involved ligament of ankle: unspecified ligament Qualified Code(s): S93.401A - Sprain of unspecified ligament of right ankle, initial encounter Puncture wound of foot Qualifiers: Encounter type: initial encounter Laterality: right Qualified Code(s): S91.331A - Puncture wound without foreign body, right foot, initial encounter Disposition: HOME, SELF-CARE Instructions: Animal Bites ([facility]), Augmentin ([facility]), Use of Crutches ([facility]), Ice Packs ([facility]), Suspected Internal Knee Injury ([facility]), Sprained Ankle ([facility]), Sprained Knee ([facility]), Tetanus Immunization Given ([facility]) Additional Instructions: Return immediately for any new or worsening symptoms Followup with your primary care provider, call tomorrow to make a followup appointment Follow-up with orthopedics for further evaluation, call tomorrow for an appointment Do not take your pain medication norco if you are taking your Lorazepam, do not mix these 2 medications together. Prescriptions: Amox Tr/Potassium Clavulanate [Augmentin 875-125 Tablet] 1 tab PO BID 10 Days tablet Hydrocodone/Acetaminophen [Star 5-325 mg Tablet] 1 tab PO Q6 PRN #12 tablet PRN Reason: Referrals: YOBANI CHESTER MD [Primary Care Provider] - Follow up as needed [facility] [Provider Group] - Follow up tomorrow
--- NOTE | 2018-04-22 16:43 | RADIOLOGY REPORT (SQ) ---
EXAM DESCRIPTION: ANKLE RIGHT COMPLETE COMPLETED DATE/TIME: 04/22/2018 4:31 pm REASON FOR STUDY: dog bite, rolled ankle COMPARISON: None. NUMBER OF VIEWS: Three views. TECHNIQUE: AP, lateral, and oblique radiographic images acquired of the right ankle. LIMITATIONS: None. FINDINGS: MINERALIZATION: Normal. BONES: No acute fracture or dislocation. No worrisome bone lesions. Corticated ossicles about the f ibular tip and medial malleolus. JOINTS: No effusions. SOFT TISSUES: No soft tissue swelling. No foreign body. OTHER: No other significant finding. IMPRESSION: No acute fracture or dislocation of the right ankle. Sequelae of remote prior trauma ab out the fibular tip and medial malleolus. TECHNICAL DOCUMENTATION: JOB ID: [id number] [employer]- All Rights Reserved Reading location - IP/workstation name: [email or web address]
--- NOTE | 2018-04-22 16:43 | RADIOLOGY REPORT (SQ) ---
EXAM DESCRIPTION: FOOT RIGHT COMPLETE COMPLETED DATE/TIME: 04/22/2018 4:31 pm REASON FOR STUDY: dog bite COMPARISON: None. NUMBER OF VIEWS: Three views. TECHNIQUE: AP, lateral and oblique radiographic images acquired of the right foot. LIMITATIONS: None. FINDINGS: MINERALIZATION: Normal. BONES: No acute fracture or dislocation. No worrisome bone lesions. JOINTS: No effusions. SOFT TISSUES: Diffuse swelling. No foreign body. OTHER: No other significant finding. IMPRESSION: Soft tissue injury. TECHNICAL DOCUMENTATION: JOB ID: [id number] [employer]- All Rights Reserved Reading location - IP/workstation name: [email or web address]
--- NOTE | 2018-04-22 16:44 | RADIOLOGY REPORT (SQ) ---
EXAM DESCRIPTION: KNEE RIGHT 4 VIEWS COMPLETED DATE/TIME: 04/22/2018 4:31 pm REASON FOR STUDY: fall COMPARISON: 10/15/2007 NUMBER OF VIEWS: Four views. TECHNIQUE: AP, lateral, and both oblique radiographic images acquired of the right knee. LIMITATIONS: None. FINDINGS: MINERALIZATION: Normal. BONES: No acute fracture or dislocation. No worrisome bone lesions. JOINT: Moderate nonspecific effusion. There is severe patellofemoral osteoarthritis and moderate fem orotibial osteoarthritis. SOFT TISSUES: No soft tissue swelling. No radio-opaque foreign body. OTHER: No other significant finding. IMPRESSION: 1. No fracture or dislocation of the right knee. 2. Moderate nonspecific knee joint effusion. 3. 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 TECHNICAL DOCUMENTATION: JOB ID: [id number] [employer]- All Rights Reserved Reading location - IP/workstation name: [email or web address]
--- NOTE | 2018-04-22 17:34 | RADIOLOGY REPORT (SQ) ---
EXAM DESCRIPTION: TIBIA FIBULA RIGHT COMPLETED DATE/TIME: 04/22/2018 5:16 pm REASON FOR STUDY: RLE pain COMPARISON: None. NUMBER OF VIEWS: Two views. TECHNIQUE: Two radiographic images acquired of the right tibia and fibula to include the knee and an kle in at least one projection. LIMITATIONS: None. FINDINGS: MINERALIZATION: Normal. BONES: No acute fracture or dislocation. No worrisome bone lesions. SOFT TISSUES: No obvious swelling or foreign body. OTHER: No other significant finding. IMPRESSION: NEGATIVE STUDY OF THE RIGHT TIBIA AND FIBULA. NO RADIOGRAPHIC EVIDENCE OF ACUTE INJURY. TECHNICAL DOCUMENTATION: JOB ID: [id number] [employer]- All Rights Reserved Reading location - IP/workstation name: [email or web address]
[2018-04-22 17:36] VITALS: BP 155/87
== END 2018-04-22 17:36 | disposition home or self-care (01) ==
LOC: ER 15:19
DX: S83.91XA Sprain of unspecified site of right knee, initial encounter (principal); S93.401A Sprain of unspecified ligament of right ankle, initial encounter; S91.331A Puncture wound without foreign body, right foot, initial encounter; M25.461 Effusion, right knee; W54.0XXA Bitten by dog, initial encounter; F17.200 Nicotine dependence, unspecified, uncomplicated; I10 Essential (primary) hypertension; E11.9 Type 2 diabetes mellitus without complications; Z90.710 Acquired absence of both cervix and uterus; Z23 Encounter for immunization
CPT/HCPCS: 99283; 90471; 73610; 73630; 73564; 73590; 90715; L1902; J3490; L1830

== ENCOUNTER 2018-04-27 00:03 | Emergency (ER) | payer SELFPAY ==
[2018-04-27 00:37] VITALS: BP 151/91
--- NOTE | 2018-04-27 01:52 | ER Document Report ---
HPI - HPI Time Seen by Provider: 04/27/18 01:43 Pain Level: 4 Context: Patient is a 53-year-old female who presents to the emergency department with a chief complaint of a fall with right hip pain. She states that 5 days ago she was seen for a fall after having a dog bite. She was then referred to orthopedics, but does not have insurance, and cannot afford to see the orthopedic doctor. 2 days ago she fell again on her right hip while on her crutches. She states that there was a puddle of water on her hardwood floor in her bedroom and she slipped and fell. She has been taking [place], medication she was given from her last visit. Her last dose was yesterday at 1800. - CONSTITUTIONAL Constitutional: DENIES: Fever, Chills - EENT EENT: DENIES: Sore Throat, Ear Pain, Eye problems - NEURO Neurology: DENIES: Headache, Weakness, Vision blurred, Dizzinesss / Vertigo - CARDIOVASCULAR Cardiovascular: DENIES: Chest pain - RESPIRATORY Respiratory: DENIES: Trouble Breathing, Coughing - GASTROINTESTINAL Gastrointestinal: DENIES: Abdominal Pain, Black / Bloody Stools - URINARY Urinary: DENIES: Dysuria, Urgency, Frequency - REPRODUCTIVE Reproductive: DENIES: : - MUSCULOSKELETAL Musculoskeletal: REPORTS: Extremity pain - R hip and knee Past Medical History - Social History Smoking Status: Current Every Day Smoker Family History: Reviewed & Not Pertinent Patient has suicidal ideation: No Patient has homicidal ideation: No - Past Medical History Cardiac Medical History: Reports: Hx Hypertension Endocrine Medical History: Reports: Hx Diabetes Mellitus Type 2 Renal/ Medical History: Denies: Hx Peritoneal Dialysis Musculoskeletal Medical History: Reports Hx Fibromyalgia, Reports Hx Musculoskeletal Deformity, Reports Hx Musculoskeletal Trauma Skin Medical History: Reports Hx Cellulitis Psychiatric Medical History: Reports: Hx Anxiety, Hx Depression Past Surgical History: Reports: Hx Section - x2, Hx Hysterectomy, Hx Orthopedic Surgery - Right Knee - Immunizations Immunizations up to date: Yes Hx Diphtheria, Pertussis, Tetanus Vaccination: Yes Vertical Provider Document - INFECTION CONTROL TRAVEL OUTSIDE OF THE [place] IN LAST 30 DAYS: No - HEENT HEENT: Atraumatic - NECK Neck: Normal Inspection - RESPIRATORY Respiratory: Breath Sounds Normal - GI/ABDOMEN Gastrointestinal: Abdomen Soft - BACK Back: Normal Inspection - MUSCULOSKELETAL/EXTREMETIES Musculoskeletal/Extremeties: Tender Notes: Right hip right knee - NEURO Level of Consciousness: Awake, Alert, Appropriate Course - Re-evaluation Re-evalutation: 04/27/18 02:26 Patient's x-rays are negative at this time. She will be given Tylenol for her pain. I discussed with her that she needs to continue to use her crutches that she has already been given. I have discussed her x-ray results with her. Verbal discharge instructions were given to the patient. She verbalized understanding. She is stable for discharge. - Vital Signs Vital signs: Temp Pulse Resp BP Pulse Ox 98.5 F 90 16 151/91 H 98 04/27/18 00:36 04/27/18 00:36 04/27/18 00:36 04/27/18 00:36 04/27/18 00:36 Discharge - Discharge Clinical Impression: Right hip pain Fall Qualifiers: Encounter type: initial encounter Qualified Code(s): W19.XXXA - Unspecified fall, initial encounter Right knee pain Qualifiers: Chronicity: acute Qualified Code(s): M25.561 - Pain in right knee Condition: Stable Disposition: HOME, SELF-CARE Additional Instructions: You were seen today in the emergency department for a fall. Your x-rays are normal. You can take Tylenol 1000 mg every 6 hours as needed for your pain. Please follow-up with your primary care doctor tomorrow to see if there is an orthopedic doctor in the area that will treat you. You may call the orthopedic doctor at that you have been referred to again and see if they are able to help you with your finances. If you develop a fever greater than 100.4 F, have worsening symptoms, or have symptoms that are worrisome to you, please return to the emergency department. Referrals: YOBANI CHESTER MD [Primary Care Provider] - Follow up tomorrow
--- NOTE | 2018-04-27 02:13 | RADIOLOGY REPORT (SQ) ---
CLINICAL HISTORY: Fell-injured R knee and hip COMPARISON: None. TECHNIQUE: XR HIP 2 OR MORE VIEWS 04/27/2018 12:00 AM TALENT ASSISTANT FINDINGS: There is no fracture. Joint spaces are preserved. Soft tissues are unremarkable. There is a tiny chronic appearing ossicle at the lateral aspect of the right acetabulum. IMPRESSION: No acute osseous findings.
--- NOTE | 2018-04-27 02:13 | RADIOLOGY REPORT (SQ) ---
CLINICAL HISTORY: Fell-injured R knee and hip COMPARISON: None. 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 There is moderate narrowing of the medial knee compartment. There is mild narrowing of the patellofemoral compartment. Soft tissues are unremarkable. IMPRESSION: No acute osseous findings.
[2018-04-27] MEDS ORDERED: ACETAMINOPHEN 325 MG TABLET PO ONE (02:27)
[2018-04-27] MEDS ORDERED: HYDROCODONE/ACETAMINOPHEN 5-325 MG (6 TAB/ER DISP) PO PRN (02:40)
== END 2018-04-27 02:45 | disposition home or self-care (01) ==
LOC: ER 00:03
DX: M25.551 Pain in right hip (principal); M25.561 Pain in right knee; W01.0XXA Fall on same level from slipping, tripping and stumbling without subsequent striking against object, initial encounter; Y92.003 Bedroom of unspecified non-institutional (private) residence as the place of occurrence of the external cause; Z79.899 Other long term (current) drug therapy; F17.200 Nicotine dependence, unspecified, uncomplicated; I10 Essential (primary) hypertension; E11.9 Type 2 diabetes mellitus without complications
CPT/HCPCS: 99283

== ENCOUNTER 2018-05-02 18:56 | Emergency (ER) | payer SELFPAY ==
--- NOTE | 2018-05-02 21:09 | RADIOLOGY REPORT (SQ) ---
EXAM DESCRIPTION: XR KNEE 4 OR MORE VIEWS COMPLETED DATE/TME: 05/02/2018 20:04 CLINICAL HISTORY: 53 years, Female, pain COMPARISON: 04/27/2018 right knee NUMBER OF VIEWS: 4 TECHNIQUE: 4 views right knee LIMITATIONS: None. FINDINGS: Negative for acute fracture or dislocation. At least moderate tricompartmental degenerative change with tricompartmental narrowing and spur formation. Soft tissues are unremarkable. IMPRESSION: At least moderate tricompartmental degenerative change as above copyright 2010 [employer]- All Rights Reserved
[2018-05-02] MEDS ORDERED: LIDOCAINE 5% (700 MG) TRANSDERMAL ADH..PATCH TP ONE (21:42)
[2018-05-02] MEDS ORDERED: HYDROCODONE/ACETAMINOPHEN 5-325 MG (6 TAB/ER DISP) PO PRN (21:42)
--- NOTE | 2018-05-02 21:47 | ER Document Report ---
HPI - HPI Patient complains to provider of: right knee pain Time Seen by Provider: 05/02/18 21:16 Pain Level: 4 Context: Comes to the emergency department for chief complaint of right knee pain. She states that she fell on the knee on 04/22 and then again on 04/24. She states that she was evaluated and had x-rays at that time, she was told that she had bad arthritis and fluid in the joint, she states that she was doing a lot better until she started having pain and swelling when walking on it earlier today. She states she has been mostly staying off it with crutches before then. She states that she was told that she needs a knee replacement, she has already established embedded case manager assistance and orthopedic follow-up but this is not for weeks. She denies numbness, falling again. She states the swelling is not significantly different but the pain is increased. She states she was seen by primary care and they placed her on hydrocodone, she was given hydrocodone here previously as well. - CONSTITUTIONAL Constitutional: DENIES: Fever, Chills - REPRODUCTIVE Reproductive: DENIES: : - MUSCULOSKELETAL Musculoskeletal: REPORTS: Extremity pain - rt leg Past Medical History - General Information source: Patient - Social History Smoking Status: Current Every Day Smoker Chew tobacco use (# tins/day): No Frequency of alcohol use: Rare Drug Abuse: None Lives with: Family Family History: Reviewed & Not Pertinent Patient has suicidal ideation: No Patient has homicidal ideation: No - Past Medical History Cardiac Medical History: Reports: Hx Hypertension Endocrine Medical History: Reports: Hx Diabetes Mellitus Type 2 Renal/ Medical History: Denies: Hx Peritoneal Dialysis Musculoskeletal Medical History: Reports Hx Fibromyalgia, Reports Hx Musculoskeletal Deformity, Reports Hx Musculoskeletal Trauma Skin Medical History: Reports Hx Cellulitis Psychiatric Medical History: Reports: Hx Anxiety, Hx Depression Past Surgical History: Reports: Hx Section - x2, Hx Hysterectomy, Hx Orthopedic Surgery - Right Knee - Immunizations Immunizations up to date: Yes Hx Diphtheria, Pertussis, Tetanus Vaccination: Yes Vertical Provider Document - CONSTITUTIONAL General Appearance: WD/WN, No Apparent Distress - INFECTION CONTROL TRAVEL OUTSIDE OF THE [place] IN LAST 30 DAYS: No - HEENT HEENT: Atraumatic, Normocephalic - NECK Neck: Normal Inspection - RESPIRATORY Respiratory: Breath Sounds Normal, No Respiratory Distress - CARDIOVASCULAR Cardiovascular: Regular Rate, Regular Rhythm - GI/ABDOMEN Gastrointestinal: Abdomen Soft, Abdomen Non-Tender - BACK Back: Normal Inspection - MUSCULOSKELETAL/EXTREMETIES Musculoskeletal/Extremeties: MAEW, FROM, Tender - Tenderness generally over the anterior right knee with mild soft tissue swelling. No erythema, abnormal heat. Normal range of motion. Crunching on Andrew's testing. Normal distal neurovascular exam. Normal ankle, leg, hip exam otherwise. - NEURO Level of Consciousness: Awake, Alert, Appropriate Motor/Sensory: No Motor Deficit, No Sensory Deficit - DERM Integumentary: Warm, Dry, No Rash Course - Re-evaluation Re-evalutation: Patient has questionable soft tissue swelling at the knee, grinding of the knee joint on Andrew testing, however there is no severe pain, erythema, abnormal heat, or concerns with her distal neurovascular exam. Vital signs unremarkable. X-ray showing tricompartmental arthritis but no acute findings. Discussed with patient. She was given Lidoderm patch, pain medication, and knee immobilizer after discussion. She states she will use the knee immobilizer, follow-up with orthopedics, and I discussed return precautions in detail. Patient states gratefulness and agreement. - Vital Signs Vital signs: Temp Pulse Resp BP Pulse Ox 98.7 F 72 20 149/79 H 97 05/02/18 19:09 05/02/18 19:11 05/02/18 19:09 05/02/18 19:11 05/02/18 19:09 Procedures - Immobilization Right knee Pre-Proc Neuro Vasc Exam: Normal Immobilizer type: Knee immobilizer Performed by: RN Post-Proc Neuro Vasc Exam: Normal Alignment checked and good: Yes Discharge - Discharge Clinical Impression: Knee pain, right Qualifiers: Chronicity: acute Qualified Code(s): M25.561 - Pain in right knee Condition: Stable Disposition: HOME, SELF-CARE Additional Instructions: You have a lot of degenerative changes in the knee, the x-ray shows no new concerning findings. I recommend using the knee immobilizer and crutches initially, elevate, ice 3-4 times a day for 10-15 minutes, take Tylenol for pain. You will likely need orthopedic follow-up for management for your chronic knee problem. Return if you worsen including numbness, severe swelling, developing redness, fever, or any other concerning or worsening symptoms. Referrals: SHERRY SHARPE MD [ACTIVE STAFF] - Follow up in 3-5 days
[2018-05-02 22:17] VITALS: BP 132/77
== END 2018-05-02 22:10 | disposition home or self-care (01) ==
LOC: ER 18:56
DX: M25.561 Pain in right knee (principal); F17.200 Nicotine dependence, unspecified, uncomplicated; I10 Essential (primary) hypertension; E11.9 Type 2 diabetes mellitus without complications; Z90.710 Acquired absence of both cervix and uterus
CPT/HCPCS: 99283

== ENCOUNTER → 2018-06-28 | Outpatient (CLI) | payer OTHER ==
[~2018-06-28] MED LIST: DIAZEPAM 5 MG TABLET ONE
--- NOTE | 2018-06-28 14:18 | RADIOLOGY REPORT (SQ) ---
EXAM DESCRIPTION: MRI RT LOWER JOINT WITHOUT COMPLETED DATE/TIME: 06/28/2018 1:50 pm REASON FOR STUDY: PAIN IN RIGHT KNEE M25.561 PAIN IN RIGHT KNEE COMPARISON: None. TECHNIQUE: Rightknee images acquired and stored on PACS. Multiplanar images include fat sensitive s equences as T1, water sensitive sequences as FST2 or STIR, cartilage sensitive sequences as FSPD, and gradient echo sequences. LIMITATIONS: None. FINDINGS: JOINT AND BURSAE: Moderate size knee joint effusion. 6 x 1 cm Hooks's cyst with 7 mm loos e body the best shown on axial image 13. BONE CORTEX AND MARROW: No marrow signal abnormalities worrisome for occult fracture or aggressive ma rrow replacement process. 1.5 cm subcortical cyst at the PCL to the tibia ACL: Torn, best shown on sagittal images 11-14. PCL: Intact. MCL: Intact. No periligamentous edema or fluid. LCL: Intact. No periligamentous edema or fluid. MEDIAL MENISCUS: Tear posterior horn medial meniscus there is posterior attachment, best shown on cor onal images 17-20, and sagittal images 15-18. No parameniscal cyst LATERAL MENISCUS: No tears. No abnormal signal. MEDIAL COMPARTMENT: High-grade chondromalacia throughout the medial compartment with mild bony spurri ng medial edge medial tibial plateau and medial femoral condyles. No bone bruises or reactive marrow edema. LATERAL COMPARTMENT: Cartilage preserved. No bone bruises or reactive marrow edema. Small osteophyte s. PATELLA: Mild medial patellar facet chondromalacia. No subchondral cysts. Medial and lateral retinacu la intact. EXTENSOR MECHANISM: Intact. Quadriceps and patella tendons normal. SOFT TISSUES: Adjacent muscles and subcutaneous tissues normal. Normal flow void in popliteal artery and vein. OTHER: No other significant finding. IMPRESSION: Internal derangement with torn ACL, torn posterior attachment of the medial meniscus. TECHNICAL DOCUMENTATION: JOB ID: [id number] [employer]- All Rights Reserved Reading location - IP/workstation name: [email or web address]
== END ==
LOC: RAD 11:45
DX: M25.561 Pain in right knee (principal)

== ENCOUNTER 2018-07-08 06:09 | Emergency (ER) | payer OTHER ==
[2018-07-08] MEDS ORDERED: NORMAL SALINE 1000 ML 1,000 ML IV ONE (09:44)
[2018-07-08] MEDS ORDERED: MORPHINE SULFATE 10 MG/ML INJ IV ONE ×2 (09:44→11:23)
--- NOTE | 2018-07-08 09:46 | ER Document Report ---
ED Head/Face/Scalp Injury - General Chief Complaint: Facial Swelling Stated Complaint: POSSIBLE FACIAL INFECTON/PAIN Time Seen by Provider: 07/08/18 09:37 Primary Care Provider: YOBANI CHESTER MD [Primary Care Provider] - Follow up as needed Mode of Arrival: Ambulatory Information source: Patient Notes: Pt is a 53 year old female who presents to the ER today for possible facial cellulitis, pt has had this before and has been admitted for it once. She denies history of MRSA that she knows of. She states that last night she got redness and pain to her chin without drainage. She states it feels as though it's spreading to the inside of her bottom lip. She denies fever, chills, difficulty swallowing or breathing. TRAVEL OUTSIDE OF THE [place] IN LAST 30 DAYS: No - Related Data Allergies/Adverse Reactions: ciprofloxacin [From Cipro] Allergy (Verified 07/08/18 06:11) gabapentin [Gabapentin] Allergy (Verified 07/08/18 06:11) ketorolac tromethamine [From Toradol] Allergy (Verified 07/08/18 06:11) pregabalin [From Lyrica] Allergy (Verified 07/08/18 06:11) tramadol Adverse Reaction (Verified 07/08/18 06:12) Past Medical History - General Information source: Patient - Social History Smoking Status: Current Every Day Smoker Chew tobacco use (# tins/day): No Drug Abuse: None Family History: Reviewed & Not Pertinent Patient has suicidal ideation: No Patient has homicidal ideation: No - Past Medical History Cardiac Medical History: Reports: Hx Hypertension Endocrine Medical History: Reports: Hx Diabetes Mellitus Type 2 Renal/ Medical History: Denies: Hx Peritoneal Dialysis Musculoskeletal Medical History: Reports Hx Fibromyalgia, Reports Hx Musculoskeletal Deformity, Reports Hx Musculoskeletal Trauma Skin Medical History: Reports Hx Cellulitis Psychiatric Medical History: Reports: Hx Anxiety, Hx Depression Past Surgical History: Reports: Hx Section - x2, Hx Hysterectomy, Hx Orthopedic Surgery - Right Knee - Immunizations Immunizations up to date: Yes Hx Diphtheria, Pertussis, Tetanus Vaccination: Yes Review of Systems - Review of Systems Constitutional: No symptoms reported EENT: See HPI Cardiovascular: No symptoms reported Respiratory: No symptoms reported Gastrointestinal: No symptoms reported Genitourinary: No symptoms reported Female Genitourinary: No symptoms reported Musculoskeletal: No symptoms reported Skin: See HPI Hematologic/Lymphatic: No symptoms reported Neurological/Psychological: No symptoms reported Physical Exam - Vital signs Vitals: Temp Pulse Resp BP Pulse Ox 98.5 F 65 20 138/70 H 97 07/08/18 06:18 07/08/18 06:18 07/08/18 06:18 07/08/18 06:18 07/08/18 06:18 - Notes Notes: PHYSICAL EXAMINATION: GENERAL: uncomfortable-appearing and in no acute distress. HEAD: Atraumatic, normocephalic. EYES: Pupils equal round and reactive to light, extraocular movements intact, sclera anicteric, conjunctiva are normal. NECK: Normal range of motion, supple without lymphadenopathy ENT: airway patent, no edema LUNGS: CTAB and equal. No wheezes rales or rhonchi. HEART: Regular rate and rhythm without murmurs ABDOMEN: Soft, no tenderness. No guarding, no rebound BACK: no vertebral tenderness, normal ROM GI/: no CVA tenderness EXTREMITIES: Normal range of motion, no pitting edema. No cyanosis. NEUROLOGICAL: Cranial nerves grossly intact. Normal sensory/motor exams. PSYCH: Normal mood, normal affect. SKIN: Warm, Dry, normal turgor, 2cm of erythema, warmth and mild induration to chin, no drainage, scabs all over face, no further erythema, no appreciable abscess Course - Re-evaluation Re-evalutation: 07/08/18 13:39 labwork unremarkable, pt given clindamycin here sent home on clindamycin. afebrile, well appearing otherwise. - Vital Signs Vital signs: Temp Pulse Resp BP Pulse Ox 97.4 F 74 16 172/77 H 98 07/08/18 12:03 07/08/18 12:03 07/08/18 12:03 07/08/18 12:03 07/08/18 12:03 - Laboratory Result Diagrams: 07/08/18 10:08 07/08/18 10:08 Laboratory results interpreted by me: 07/08/18 07/08/18 10:08 10:08 MCH 33.5 H Glucose 199 H Discharge - Discharge Clinical Impression: Cellulitis of face Condition: Stable Disposition: HOME, SELF-CARE Additional Instructions: Return immediately for any new or worsening symptoms. Follow up with primary care provider, call tomorrow to make followup appointment. Prescriptions: Clindamycin HCl 300 mg PO TID #30 capsule Hydrocodone/Acetaminophen [Radom 5-325 mg Tablet] 1 tab PO Q4 PRN #10 tablet PRN Reason: Referrals: YOBANI CHESTER MD [Primary Care Provider] - Follow up as needed
[2018-07-08] MEDS ORDERED: CLINDAMYCIN 300 MG/D5W RTU 300 MG/50 ML RTUPB IV ONE (10:00)
[2018-07-08] MEDS ORDERED: CLINDAMYCIN 300 MG/D5W RTU 300 MG/50 ML RTUPB IV SCH (10:00)
[2018-07-08 10:22] LABS: ABSOLUTE EOSINOPHILS # (AUTO) 0.1 10^3/uL (0.0-0.6); ABSOLUTE LYMPHOCYTES (AUTO) 2.5 10^3/uL (0.5-4.7); ABSOLUTE MONOCYTES (AUTO) 0.4 10^3/uL (0.1-1.4); ABSOLUTE NEUT (AUTO) 3.3 10^3/uL (1.7-8.2); BASOPHILS % (AUTO) 0.7 % (0-2); EOSINOPHILS % (AUTO) 1.9 % (0-6); HEMATOCRIT 37.7 % (36.0-47.0); LYMPHOCYTES % (AUTO) 38.7 % (13-45); MEAN CORPUSCULAR HEMOGLOBIN 33.5 pg (27.0-33.4); MEAN CORPUSCULAR HGB CONC 34.6 g/dL (32.0-36.0); MEAN CORPUSCULAR VOLUME 97 fl (80-97); MONOCYTES % (AUTO) 6.9 % (3-13); PLATELET COUNT 174 10^3/uL (150-450); RED CELL DISTRIBUTION WIDTH 12.9 % (11.5-14.0); SEGMENTED NEUTROPHILS % (AUTO) 51.8 % (42-78); TOTAL CELLS COUNTED % (AUTO) 100 %; WHITE BLOOD COUNT 6.4 10^3/uL (4.0-10.5)
[2018-07-08 10:48] LABS: ALANINE AMINOTRANSFERASE 38 U/L (9-52); ALBUMIN 4.1 g/dL (3.5-5.0); ALKALINE PHOSPHATASE 70 U/L (38-126); ANION GAP 5 (5-19); ASPARTATE AMINO TRANSFERASE 21 U/L (14-36); BILIRUBIN,DIRECT 0.1 mg/dL (0.0-0.4); BILIRUBIN,TOTAL 0.4 mg/dL (0.2-1.3); BLOOD UREA NITROGEN 19 mg/dL (7-20); CALCIUM 9.5 mg/dL (8.4-10.2); CARBON DIOXIDE 30 mmol/L (22-30); CHLORIDE 102 mmol/L (98-107); GLUCOSE 199 mg/dL (75-110); POTASSIUM 4.2 mmol/L (3.6-5.0); SODIUM 137.3 mmol/L (137-145); TOTAL PROTEIN 6.8 g/dL (6.3-8.2)
[2018-07-08 12:09] VITALS: BP 172/77
== END 2018-07-08 12:15 | disposition home or self-care (01) ==
LOC: ER 06:09
DX: L03.211 Cellulitis of face (principal); F17.200 Nicotine dependence, unspecified, uncomplicated; I10 Essential (primary) hypertension; E11.9 Type 2 diabetes mellitus without complications; Z90.710 Acquired absence of both cervix and uterus; Z88.6 Allergy status to analgesic agent
CPT/HCPCS: 96376; 99283; 96375; 96365; 36415; 85025; 80053; J3490; J2270; J7030

== ENCOUNTER 2018-08-25 09:46 | Emergency (ER) | payer OTHER ==
[2018-08-25] MEDS ORDERED: ACETAMINOPHEN 325 MG TABLET PO ONE (10:23)
--- NOTE | 2018-08-25 10:26 | ER Document Report ---
ED Cardiac - General Chief Complaint: Chest Wall Pain Stated Complaint: CHEST PAIN Time Seen by Provider: 08/25/18 10:15 Mode of Arrival: Ambulatory Information source: Patient TRAVEL OUTSIDE OF THE [place] IN LAST 30 DAYS: No - HPI Patient complains to provider of: Chest pain Notes: Patient here with complaints of pain in the right side of her chest. She states that she was attempting to help a friend put a dog in the car when she felt a sudden pain in the right side of her chest. This happened yesterday. The pain is been constant since, is worse with movements of her right arm, taking a deep breath and touching the right side of her chest. There is no trauma to the chest wall. No fever. No difficulty breathing at this time. No shortness of breath. No recent long trips or surgeries, no leg pain or swelling, no hormone use, no history of DVT or PE. She also states that she fell onto her right knee. She has chronic pain in the right knee and according to the MRI she had done over a month ago, she has a torn ACL and posterior aspect of the medial meniscus. She states that it does not hurt anymore than it normally does and there was no significant trauma to the knee. No redness or swelling. No numbness, tingling, weakness. No abdominal pain. No nausea, vomiting, diarrhea. No other specific complaints at this time. - Related Data Allergies/Adverse Reactions: ciprofloxacin [From Cipro] Allergy (Verified 08/25/18 09:47) gabapentin [Gabapentin] Allergy (Verified 08/25/18 09:47) ketorolac tromethamine [From Toradol] Allergy (Verified 08/25/18 09:47) pregabalin [From Lyrica] Allergy (Verified 08/25/18 09:47) tramadol Adverse Reaction (Verified 08/25/18 09:47) Past Medical History - Social History Smoking Status: Current Every Day Smoker Chew tobacco use (# tins/day): No Frequency of alcohol use: None Drug Abuse: None Family History: Reviewed & Not Pertinent Patient has suicidal ideation: No Patient has homicidal ideation: No - Past Medical History Cardiac Medical History: Reports: Hx Hypertension Endocrine Medical History: Reports: Hx Diabetes Mellitus Type 2 Renal/ Medical History: Denies: Hx Peritoneal Dialysis Musculoskeletal Medical History: Reports Hx Fibromyalgia, Reports Hx Musculoskeletal Deformity, Reports Hx Musculoskeletal Trauma Skin Medical History: Reports Hx Cellulitis Psychiatric Medical History: Reports: Hx Anxiety, Hx Depression Past Surgical History: Reports: Hx Section - x2, Hx Hysterectomy, Hx Orthopedic Surgery - Right Knee - Immunizations Immunizations up to date: Yes Hx Diphtheria, Pertussis, Tetanus Vaccination: Yes Review of Systems - Review of Systems -: Yes All other systems reviewed and negative Physical Exam - Vital signs Vitals: Temp Pulse Resp BP Pulse Ox 98.4 F 75 18 156/95 H 96 08/25/18 09:52 08/25/18 09:52 08/25/18 09:52 08/25/18 09:52 08/25/18 09:52 - Notes Notes: GENERAL: alert, cooperative, nontoxic, no distress. HEAD: normocephalic, atraumatic EYES: conjunctiva pink without discharge, no external redness or swelling. EARS: no external swelling, no external redness NOSE: atraumatic, no external swelling MOUTH/THROAT: mucous membranes moist and pink, posterior pharynx without erythema, swelling, exudate. No trismus or drooling. NECK: soft, supple, full range of motion, no meningismus. CHEST: no distress, lungs clear and equal throughout. No wheezing, rales, rhonchi. CARDIAC: regular rate and rhythm, no murmur, normal capillary refill, normal pulses. No peripheral edema noted. Right anterior chest wall tenderness to palpation. ABDOMEN: Soft, nontender. BACK: full range of motion, no CVA tenderness. EXTREMITIES: full range of motion of all extremities. No redness, no swelling. Mild tenderness to the right knee. No redness. Normal pulse and sensation distally. NEURO: alert and oriented x 3, no focal deficits, full range of motion of all extremities. PYSCH: appropriate mood, affect. Patient is cooperative. SKIN: pink, warm, dry, no rash. Course - Re-evaluation Re-evalutation: 08/25/18 12:17 Patient is nontoxic-appearing with stable vitals. Patient here with complaints of some right upper chest wall pain after picking up a dog yesterday. She states that she is felt some pain in this area since it occurred. Pain is worse with movement, deep breath, touching the area. No shortness of breath. No PE risk factors. She has reproducible right upper chest wall tenderness to palpation. EKG is negative. X-ray negative for acute findings. Patient was given a dose of Cadillac here in the emergency department. Did look the patient up on the [facility] aware, she has not had multiple prescriptions, no recent prescriptions. She will be given a small supply of pain medication due to her allergies for chest wall strain. Patient is instructed to follow-up with her doctor if not better in the next week, did to return if she has worsening pain, fever, difficulty breathing, shortness of breath or has any further concerns. Patient has no sign of this being ACS, pulmonary embolism or other serious cause of her pain as this occurred as an injury and is reproducible in nature. Patient states she also fell on her knee. No significant trauma to the knee, she is noted to have a torn ACL and medial meniscus on recent MRI. She states that the pain in the knee is the normal pain that she has and she does not think she requires an x-ray at this time as she is a low concern for any fracture. There is no signs of infection at this time. An initial examination was made on the patient as part of the triage process, and it was determined a more comprehensive evaluation was necessary. Initial labs were ordered and patient was transferred to another provider in the ED who assumed care and finished evaluation and plan. - Vital Signs Vital signs: Temp Pulse Resp BP Pulse Ox 98.4 F 68 20 159/100 H 96 08/25/18 09:52 08/25/18 12:09 08/25/18 12:09 08/25/18 12:09 08/25/18 12:09 - Diagnostic Test Radiology reviewed: Image reviewed, Reports reviewed - Negative chest x-ray - EKG Interpretation by Me EKG shows normal: Sinus rhythm, Colbert, Intervals, QRS Complexes, ST-T Waves Rate: Normal Discharge - Discharge Clinical Impression: Chest wall muscle strain Qualifiers: Encounter type: initial encounter Qualified Code(s): S29.011A - Strain of muscle and tendon of front wall of thorax, initial encounter Condition: Stable Disposition: HOME, SELF-CARE Instructions: Chest Wall Pain ([facility]) Additional Instructions: Take medication as prescribed. Ice or heat to sore area. Follow-up if not better in the next week, sooner for worsening pain, high fever, difficult to breathing or swallowing, persistent vomiting, or for any further concerns. Prescriptions: Hydrocodone/Acetaminophen [Cadillac 5-325 mg Tablet] 2 tab PO Q6H PRN #15 tab PRN Reason: Forms: Elevated Blood Pressure, Smoking Cessation Education Referrals: [facility] [Provider Group] - Follow up as needed
[2018-08-25] MEDS ORDERED: HYDROCODONE/ACETAMINOPHEN 5-325 MG TABLET PO ONE (10:50)
--- NOTE | 2018-08-25 12:01 | RADIOLOGY REPORT (SQ) ---
EXAM DESCRIPTION: CHEST 2 VIEWS COMPLETED DATE/TIME: 08/25/2018 11:32 am REASON FOR STUDY: RIGHT CP AFTER LIFTING DOG COMPARISON: AP chest 10/17/2016 EXAM PARAMETERS: NUMBER OF VIEWS: two views TECHNIQUE: Digital Frontal and Lateral radiographic views of the chest acquired. RADIATION DOSE: NA LIMITATIONS: none FINDINGS: LUNGS AND PLEURA: No opacities, masses or pneumothorax. No pleural effusion. MEDIASTINUM AND HILAR STRUCTURES: No masses or contour abnormalities. HEART AND VASCULAR STRUCTURES: Heart normal size. No evidence for failure. BONES: No acute findings. HARDWARE: None in the chest. OTHER: No other significant finding. IMPRESSION: NO ACUTE RADIOGRAPHIC FINDING IN THE CHEST. TECHNICAL DOCUMENTATION: JOB ID: [id number] [employer]- All Rights Reserved Reading location - IP/workstation name: [email or web address]
[2018-08-25 12:10] VITALS: BP 159/100
--- NOTE | 2018-08-25 23:21 | EKG REPORT ---
SEVERITY:- BORDERLINE ECG - SINUS RHYTHM PROBABLE LEFT ATRIAL ABNORMALITY : Confirmed by: Vandana Brown 25-Aug-2018 23:20:21
== END 2018-08-25 12:21 | disposition home or self-care (01) ==
LOC: ER 09:46
DX: S29.011A Strain of muscle and tendon of front wall of thorax, initial encounter (principal); R07.89 Other chest pain; X50.9XXA Other and unspecified overexertion or strenuous movements or postures, initial encounter; Y93.89 Activity, other specified; S83.241A Other tear of medial meniscus, current injury, right knee, initial encounter; S83.511A Sprain of anterior cruciate ligament of right knee, initial encounter; X58.XXXA Exposure to other specified factors, initial encounter; F17.200 Nicotine dependence, unspecified, uncomplicated; I10 Essential (primary) hypertension; E11.9 Type 2 diabetes mellitus without complications; Z88.1 Allergy status to other antibiotic agents; Z88.6 Allergy status to analgesic agent; Z88.8 Allergy status to other drugs, medicaments and biological substances
CPT/HCPCS: 71046; 93005; 93010; 99284

== ENCOUNTER 2018-08-30 01:51 | Emergency (ER) | payer OTHER ==
[2018-08-30 02:04] VITALS: BP 151/81
[2018-08-30] MEDS ORDERED: HYDROCODONE/ACETAMINOPHEN 5-325 MG (6 TAB/ER DISP) PO PRN (03:36)
[2018-08-30] MEDS ORDERED: CLINDAMYCIN HCL 150 MG CAPSULE PO ONE (03:36)
[2018-08-30] MEDS ORDERED: ONDANSETRON 4 MG TAB.RAPDIS PO ONE (03:37)
--- NOTE | 2018-08-30 03:40 | ER Document Report ---
ED General - General Chief Complaint: Skin Sore(s) Stated Complaint: FACIAL PAIN Time Seen by Provider: 08/30/18 03:27 Primary Care Provider: RODO JARA MD [Primary Care Provider] - Follow up as needed Notes: Patient is a 53-year-old female presents with complaint of some redness to the nose. She has a history of recurrent facial cellulitis. This occurs because she has a problem with picking at her skin. She says she is not picking her skin is much she used to but she still has a bad habit of doing this sometimes. She does have a few sores on her skin from where she is picked at her skin. She denies any fevers. No vomiting. No other complaints at this time. No difficulty breathing. TRAVEL OUTSIDE OF THE [place] IN LAST 30 DAYS: No - Related Data Allergies/Adverse Reactions: ciprofloxacin [From Cipro] Allergy (Verified 08/25/18 09:47) gabapentin [Gabapentin] Allergy (Verified 08/25/18 09:47) ketorolac tromethamine [From Toradol] Allergy (Verified 08/25/18 09:47) pregabalin [From Lyrica] Allergy (Verified 08/25/18 09:47) tramadol Adverse Reaction (Verified 08/25/18 09:47) Past Medical History - Social History Smoking Status: Unknown if Ever Smoked Frequency of alcohol use: None Drug Abuse: None Family History: Reviewed & Not Pertinent Patient has suicidal ideation: No Patient has homicidal ideation: No - Past Medical History Cardiac Medical History: Reports: Hx Hypertension Endocrine Medical History: Reports: Hx Diabetes Mellitus Type 2 Renal/ Medical History: Denies: Hx Peritoneal Dialysis Musculoskeletal Medical History: Reports Hx Fibromyalgia, Reports Hx Musculoskeletal Deformity, Reports Hx Musculoskeletal Trauma Skin Medical History: Reports Hx Cellulitis Psychiatric Medical History: Reports: Hx Anxiety, Hx Depression Past Surgical History: Reports: Hx Section - x2, Hx Hysterectomy, Hx Orthopedic Surgery - Right Knee - Immunizations Immunizations up to date: Yes Hx Diphtheria, Pertussis, Tetanus Vaccination: Yes Review of Systems - Review of Systems Notes: My Normal Review Basic REVIEW OF SYSTEMS: CONSTITUTIONAL : Denies fever, chills, or sweats. Denies recent illness. EENT: Redness to nose. SKIN: Sores on skin from picking. NEUROLOGICAL: Denies altered mental status or loss of consciousness. Denies headache. ALL OTHER SYSTEMS REVIEWED AND NEGATIVE. Physical Exam - Vital signs Vitals: Temp Pulse Resp BP Pulse Ox 98.4 F 76 22 H 151/81 H 95 08/30/18 02:02 08/30/18 02:02 08/30/18 02:02 08/30/18 02:02 08/30/18 02:02 - Notes Notes: General Appearance: Well nourished, alert, cooperative, no acute distress, no obvious discomfort. Well-appearing. Vitals: reviewed, See vital signs table. Head: no swelling or tenderness to the head. Eyes: PERRL, EOMI, Conjuctiva clear Mouth: No decreasd moisture Nose: Patient has redness and swelling to the tip of the nose. There is no redness and swelling inside the naris. No abscess formation. Findings consistent with cellulitis. Throat: No tonsillar inflammation, No airway obstruction, No lymphadenopathy Neck: Supple, no neck tenderness, No neck swelling Skin: warm, dry, she has several areas of excoriations from where she picks at her skin both on the face and on her extremities. Neuro: speech clear, oriented x 3, normal affect, responds appropriately to questions. Course - Re-evaluation Re-evalutation: 08/30/18 04:43 Patient has early cellulitis of her nose. There is no abscess. I feel she safe to be discharged home. I placed on clindamycin this is worked well for her in the past. Encouraged her to stop picking at her skin. Encouraged to return to ER if she has fevers, spreading redness, or if she feels unwell. Patient agrees with plan and will be discharged home. Dictation of this chart was performed using voice recognition software; therefore, there may be some unintended grammatical errors. - Vital Signs Vital signs: Temp Pulse Resp BP Pulse Ox 98.4 F 76 22 H 151/81 H 95 08/30/18 02:02 08/30/18 02:02 08/30/18 02:02 08/30/18 02:02 08/30/18 02:02 Discharge - Discharge Clinical Impression: Cellulitis of face Condition: Good Disposition: HOME, SELF-CARE Additional Instructions: Please take the clindamycin as prescribed. I have given you a small bottle of a few tablets of Hulbert. Please be aware that Hulbert does have Tylenol (acetaminophen) in it. Please make sure you do not take more than 4000 mg of acetaminophen a day. Do not drive or care for children after you have taken this medication they will make you sleepy and sometimes impair judgment. Please return to ER if you have spreading redness, fevers, or feel that you are worsening in any way. Follow-up with your doctor in 2 to 3 days for reevaluation. Prescriptions: RX: Clindamycin HCl [Cleocin 150 mg Capsule] 300 mg PO Q6 #56 capsule Ondansetron [Zofran Odt 4 mg Tablet] 1 tab PO Q4H PRN #5 tab.rapdis PRN Reason: For Nausea/Vomiting Referrals: RODO JARA MD [Primary Care Provider] - Follow up as needed
== END 2018-08-30 04:12 | disposition home or self-care (01) ==
LOC: ER 01:51
DX: L03.211 Cellulitis of face (principal); I10 Essential (primary) hypertension; E11.9 Type 2 diabetes mellitus without complications; Z90.710 Acquired absence of both cervix and uterus; Z88.3 Allergy status to other anti-infective agents; Z88.6 Allergy status to analgesic agent
CPT/HCPCS: 99283; S0119

== ENCOUNTER 2018-09-25 15:53 | Emergency (ER) | payer OTHER ==
[2018-09-25 16:01] VITALS: BP 152/81
--- NOTE | 2018-09-25 16:17 | ER Document Report ---
HPI - HPI Patient complains to provider of: facial cellulitis Time Seen by Provider: 09/25/18 16:08 Onset: Yesterday Quality of pain: Achy Severity: Severe Pain Level: 4 Context: Patient presents to the emergency department with complaints of right-sided facial cellulitis. Patient reports symptoms started yesterday. She reports history of picking at her skin and noticed it was irritated this morning when she woke up reports she is been admitted several times for this same symptoms. Reports areas really tender to palpate when she woke up the area was very warm.. She reports she was instructed to follow-up with ENT but has not been able to because she did not have insurance. Patient is in a wheelchair reports she has bilateral knee pain. She just settled from her disability case so she will be able to follow-up with the ENT. Patient denies Fever vomiting diarrhea. Associated Symptoms: None Exacerbated by: Denies Relieved by: Denies Similar symptoms previously: Yes Recently seen / treated by doctor: No - REPRODUCTIVE Reproductive: DENIES: : Past Medical History - General Information source: Patient - Social History Smoking Status: Unknown if Ever Smoked Family History: Reviewed & Not Pertinent - Past Medical History Cardiac Medical History: Reports: Hx Hypertension Endocrine Medical History: Reports: Hx Diabetes Mellitus Type 2 Renal/ Medical History: Denies: Hx Peritoneal Dialysis Musculoskeletal Medical History: Reports Hx Fibromyalgia, Reports Hx Musculoskeletal Deformity, Reports Hx Musculoskeletal Trauma Skin Medical History: Reports Hx Cellulitis, Reports Other - dermatillomania Psychiatric Medical History: Reports: Hx Anxiety, Hx Depression Past Surgical History: Reports: Hx Section - x2, Hx Hysterectomy, Hx Orthopedic Surgery - Right Knee - Immunizations Immunizations up to date: Yes Hx Diphtheria, Pertussis, Tetanus Vaccination: Yes Vertical Provider Document - CONSTITUTIONAL Agree With Documented VS: Yes Exam Limitations: No Limitations General Appearance: WD/WN, No Apparent Distress - INFECTION CONTROL TRAVEL OUTSIDE OF THE [place] IN LAST 30 DAYS: No - HEENT HEENT: Atraumatic, Normocephalic. negative: Conjuctival Injection Notes: Small healing sore noted to the right cheek above area of excoriation for patient has been picking at her skin. - NECK Neck: Normal Inspection, Supple - RESPIRATORY Respiratory: Breath Sounds Normal, No Respiratory Distress - CARDIOVASCULAR Cardiovascular: Regular Rate - MUSCULOSKELETAL/EXTREMETIES Musculoskeletal/Extremeties: MAEW, FROM - NEURO Level of Consciousness: Awake, Alert, Appropriate Motor/Sensory: No Motor Deficit - DERM Integumentary: Warm, Dry Adult Front & Back Diagram: 1 - erythema noted, looks like patient has been squeezing her skin, no warmth, no pustule, no induration. 2 - healing sore above erythema, no pustule, no warmth, no drainage, no induration Course - Re-evaluation Re-evalutation: 09/25/18 16:52 Patient is nontoxic looking. The right side of her face does not look infection with no warmth no swelling some erythema but it looks like where she has been squeezing her cheek. She has also have a healing sore right above the area. Patient was prescribed clindamycin because she has a history of the cellulitis. She is requesting pain medication. I declined pain medication for her at this time after reviewing the [place] controlled substance report system. Patient has overdose risk score of 300. Patient just received some [place] from the provider in [place] on September 19. I discussed this with patient. She reports she does not have any kind of insurance but she is getting insurance and she plans on going to pain management for her chronic knee problems. Patient is very tearful saying that she hurts. She was provided with one [place] here. Reports she took a taxi here. - Vital Signs Vital signs: Temp Pulse Resp BP Pulse Ox 98.2 F 77 22 H 152/81 H 97 09/25/18 15:56 09/25/18 15:56 09/25/18 15:56 09/25/18 15:56 09/25/18 15:56 Discharge - Discharge Clinical Impression: right cheek irritation, history of facial cellulitis, Dermatillomania in adult Condition: Stable Disposition: HOME, SELF-CARE Instructions: Acetaminophen, Clindamycin ([facility]) Additional Instructions: *You have been treated for facial irritation, history of facial cellulitis, skin picking (dermatillomania) *Take medication as prescribed *Monitor your skin for signs of infection such as increasing pain, redness, swelling, warmth *Keep the area clean, do not pick at your skin, take acetaminophen for pain as indicated *Follow up with a primary care provider within 5 days *Return to ED for signs of infection, worsening condition, changes, needs Prescriptions: Clindamycin HCl [Cleocin 300 mg Capsule] 300 mg PO QID #20 capsule Referrals: RODO JARA MD [Primary Care Provider] - Follow up in 3-5 days
[2018-09-25] MEDS ORDERED: HYDROCODONE/ACETAMINOPHEN 5-325 MG TABLET PO ONE (16:45)
== END 2018-09-25 17:05 | disposition home or self-care (01) ==
LOC: ER 15:53
DX: F42.4 Excoriation (skin-picking) disorder (principal); L98.9 Disorder of the skin and subcutaneous tissue, unspecified; L53.9 Erythematous condition, unspecified; M25.561 Pain in right knee; M25.562 Pain in left knee; I10 Essential (primary) hypertension; E11.9 Type 2 diabetes mellitus without complications; Z87.2 Personal history of diseases of the skin and subcutaneous tissue
CPT/HCPCS: 99283

== ENCOUNTER → 2018-11-21 | Outpatient (CLI) | payer MEDICAID ==
[2018-11-21 13:29] LABS: HEMATOCRIT 43.1 % (36.0-47.0); HEMOGLOBIN 15.2 g/dL (12.0-15.5); MEAN CORPUSCULAR HEMOGLOBIN 33.7 pg (27.0-33.4); MEAN CORPUSCULAR HGB CONC 35.2 g/dL (32.0-36.0); MEAN CORPUSCULAR VOLUME 96 fl (80-97); PLATELET COUNT 201 10^3/uL (150-450); RED CELL DISTRIBUTION WIDTH 12.5 % (11.5-14.0); WHITE BLOOD COUNT 9.4 10^3/uL (4.0-10.5)
[2018-11-21 13:54] LABS: ALANINE AMINOTRANSFERASE 32 U/L (9-52); ALBUMIN 4.5 g/dL (3.5-5.0); ALKALINE PHOSPHATASE 89 U/L (38-126); ANION GAP 8 (5-19); ASPARTATE AMINO TRANSFERASE 22 U/L (14-36); BILIRUBIN,DIRECT 0.2 mg/dL (0.0-0.4); BILIRUBIN,TOTAL 0.5 mg/dL (0.2-1.3); BLOOD UREA NITROGEN 14 mg/dL (7-20); CALCIUM 9.9 mg/dL (8.4-10.2); CARBON DIOXIDE 32 mmol/L (22-30); CHLORIDE 98 mmol/L (98-107); CHOLESTEROL 230.59 mg/dL (0-200); GLUCOSE 264 mg/dL (75-110); POTASSIUM 4.3 mmol/L (3.6-5.0); TOTAL PROTEIN 7.4 g/dL (6.3-8.2); TRIGLYCERIDES 452 mg/dL (<150)
[2018-11-21 14:04] LABS: DIRECT LDL 139 mg/dL (<100)
[2018-11-22 12:36] LABS: CREATININE URINE 263.5 mg/dL (Not Estab.); MICROALBUMIN URINE 32.6 ug/mL (Not Estab.)
== END ==
LOC: OD 12:42
PROVIDERS: ATTEND Internal Medicine
DX: E11.9 Type 2 diabetes mellitus without complications (principal); E66.01 Morbid (severe) obesity due to excess calories; F33.1 Major depressive disorder, recurrent, moderate; F41.9 Anxiety disorder, unspecified; I10 Essential (primary) hypertension; Z72.0 Tobacco use
CPT/HCPCS: 36415; 80053; 80061; 82043; 82570; 83036; 84443; 85027

== ENCOUNTER 2019-01-03 00:04 | Emergency (ER) | payer MEDICAID, OTHER ==
[2019-01-03] MEDS ORDERED: NORMAL SALINE 1000 ML 1,000 ML IV ONE (01:26)
[2019-01-03] MEDS ORDERED: ONDANSETRON HCL INJ/PF 4 MG/2 ML SDV IV ONE (01:26)
[2019-01-03 02:03] LABS: ABSOLUTE BASOPHILS # (AUTO) 0.1 10^3/uL (0.0-0.2); ABSOLUTE EOSINOPHILS # (AUTO) 0.1 10^3/uL (0.0-0.6); ABSOLUTE LYMPHOCYTES (AUTO) 2.4 10^3/uL (0.5-4.7); ABSOLUTE MONOCYTES (AUTO) 0.3 10^3/uL (0.1-1.4); ABSOLUTE NEUT (AUTO) 5.9 10^3/uL (1.7-8.2); BASOPHILS % (AUTO) 1.3 % (0-2); EOSINOPHILS % (AUTO) 0.8 % (0-6); HEMATOCRIT 42.1 % (36.0-47.0); HEMOGLOBIN 14.6 g/dL (12.0-15.5); LYMPHOCYTES % (AUTO) 27.8 % (13-45); MEAN CORPUSCULAR HEMOGLOBIN 33.5 pg (27.0-33.4); MEAN CORPUSCULAR HGB CONC 34.7 g/dL (32.0-36.0); MEAN CORPUSCULAR VOLUME 97 fl (80-97); PLATELET COUNT 207 10^3/uL (150-450); RED BLOOD COUNT 4.36 10^6/uL (3.72-5.28); RED CELL DISTRIBUTION WIDTH 12.9 % (11.5-14.0); SEGMENTED NEUTROPHILS % (AUTO) 67.1 % (42-78); TOTAL CELLS COUNTED % (AUTO) 100 %; WHITE BLOOD COUNT 8.8 10^3/uL (4.0-10.5)
[2019-01-03 02:17] LABS: APPEARANCE,URINE CLEAR; BILIRUBIN,URINE NEGATIVE (NEGATIVE); COLOR,URINE STRAW; GLUCOSE, URINE >=500 mg/dL (NEGATIVE); KETONES,URINE NEGATIVE (NEGATIVE); LEUKOCYTE ESTERASE,URINE TRACE (NEGATIVE); NITRITE,URINE NEGATIVE (NEGATIVE); PROTEIN,URINE NEGATIVE (NEGATIVE); UROBILINOGEN,URINE NEGATIVE mg/dL (<2.0)
[2019-01-03] MEDS ORDERED: FENTANYL CITRATE INJ/PF 100 MCG/2 ML AMPUL IV ONE (02:31)
[2019-01-03] MEDS ORDERED: CEFTRIAXONE 1 GM/D5W RTU 1 GM/50 ML RTUPB IV ONE (02:32)
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
[2019-01-03] MEDS ORDERED: SULFAMETHOXAZOLE/TRIMETHOPRIM 800-160 MG TABLET PO ONE (02:58)
[2019-01-03] MEDS ORDERED: PHENAZOPYRIDINE HCL 200 MG TABLET PO ONE (02:58)
[2019-01-03 04:22] VITALS: BP 148/92
== END 2019-01-03 04:25 | disposition home or self-care (01) ==
LOC: ER 00:04
DX: N30.01 Acute cystitis with hematuria (principal); L03.211 Cellulitis of face; F42.4 Excoriation (skin-picking) disorder; R23.4 Changes in skin texture; M79.7 Fibromyalgia; M54.5 Low back pain; G89.29 Other chronic pain; Z79.891 Long term (current) use of opiate analgesic; R35.0 Frequency of micturition; R30.0 Dysuria; R11.0 Nausea; I10 Essential (primary) hypertension; E11.9 Type 2 diabetes mellitus without complications; F17.210 Nicotine dependence, cigarettes, uncomplicated; F32.9 Major depressive disorder, single episode, unspecified; F41.9 Anxiety disorder, unspecified; Z88.1 Allergy status to other antibiotic agents; Z88.6 Allergy status to analgesic agent; Z88.8 Allergy status to other drugs, medicaments and biological substances
CPT/HCPCS: 99283; 96375; 96365; 36415; 87086; 85025; 87088; 87186; 81001; J3010; J3490 ×2; J2405; J7030; J0696

== ENCOUNTER 2019-04-11 08:15 | Emergency (ER) | payer MEDICAID ==
[2019-04-11] MEDS ORDERED: HYDROMORPHONE HCL INJ/PF 2 MG/ML AMPULE IM ONE (11:06)
--- NOTE | 2019-04-11 11:52 | ER Document Report ---
ED Fall - General Chief Complaint: Back Pain Stated Complaint: FALL/BACK PAIN Time Seen by Provider: 04/11/19 10:33 Primary Care Provider: ROCHELLE PUCKETT MD [Primary Care Provider] - Follow up as needed Mode of Arrival: Ambulatory Information source: Patient TRAVEL OUTSIDE OF THE [place] IN LAST 30 DAYS: No - HPI Notes: Patient presents with low back pain. She states that she has chronic low back pain. She states she fell out of bed last night however and is exacerbated her chronic low back pain. She states that she is in pain management. She is not getting relief with her chronic pain management medicines at home. She does not have an appointment and pain management till next week. She states the pain is in a slightly different location located in the lower left center of her back it is more sharp than usual. This pain is constant. Is worse with movement and better with rest. It does not radiate into her legs or buttocks. She denies any new numbness or abnormal sensations. No problems with bowel movements or urination. - Related data Allergies/Adverse Reactions: ciprofloxacin [From Cipro] Allergy (Verified 04/11/19 09:00) gabapentin [Gabapentin] Allergy (Verified 04/11/19 09:00) ketorolac tromethamine [From Toradol] Allergy (Verified 04/11/19 09:00) pregabalin [From Lyrica] Allergy (Verified 04/11/19 09:00) tramadol Adverse Reaction (Verified 04/11/19 09:00) Past Medical History - General Information source: Patient - Social History Smoking Status: Current Every Day Smoker Chew tobacco use (# tins/day): No Frequency of alcohol use: Occasional Drug Abuse: None Family History: Reviewed & Not Pertinent Patient has suicidal ideation: No Patient has homicidal ideation: No - Past Medical History Cardiac Medical History: Reports: Hx Hypertension Endocrine Medical History: Reports: Hx Diabetes Mellitus Type 2 Musculoskeletal Medical History: Reports Hx Fibromyalgia, Reports Hx Musculoskeletal Deformity, Reports Hx Musculoskeletal Trauma Skin Medical History: Reports Hx Cellulitis Psychiatric Medical History: Reports: Hx Anxiety, Hx Depression Past Surgical History: Reports: Hx Section - x2, Hx Hysterectomy, Hx Orthopedic Surgery - Right Knee, Hx Tonsillectomy - Immunizations Immunizations up to date: Yes Hx Diphtheria, Pertussis, Tetanus Vaccination: Yes Review of Systems - Review of Systems Constitutional: denies: Chills, Fever Cardiovascular: denies: Chest pain, Palpitations Respiratory: denies: Cough, Short of breath -: Yes All other systems reviewed and negative Physical Exam - Vital signs Vitals: Temp Pulse Resp BP Pulse Ox 98.5 F 93 20 139/85 H 96 04/11/19 08:21 04/11/19 08:21 04/11/19 08:21 04/11/19 08:21 04/11/19 08:21 Interpretation: Normal - General General appearance: Appears well, Alert - HEENT Head: Normocephalic, Atraumatic Eyes: Normal Pupils: PERRL - Respiratory Respiratory status: No respiratory distress Chest status: Nontender Breath sounds: Normal Chest palpation: Normal - Cardiovascular Rhythm: Regular Heart sounds: Normal auscultation Murmur: No - Abdominal Inspection: Normal Distension: No distension Bowel sounds: Normal Tenderness: Nontender Organomegaly: No organomegaly - Back Back: Tender - Extremities General upper extremity: Normal inspection, Nontender, Normal color, Normal ROM, Normal temperature General lower extremity: Normal inspection, Nontender, Normal color, Normal ROM, Normal temperature, Normal weight bearing. No: Jose Enrique's sign - Neurological Neuro grossly intact: Yes Cognition: Normal Orientation: AAOx4 [place] Coma Scale Eye Opening: Spontaneous [place] Coma Scale Verbal: Oriented [place] Coma Scale Motor: Obeys Commands [place] Coma Scale Total: 15 Speech: Normal Motor strength normal: LUE, RUE, LLE, RLE Sensory: Normal - Psychological Associated symptoms: Normal affect, Normal mood - Skin Skin Temperature: Warm Skin Moisture: Dry Skin Color: Normal Course - Re-evaluation Re-evalutation: 04/11/19 11:51 Patient presents with low back pain. No evidence of cauda equina. - Vital Signs Vital signs: Temp Pulse Resp BP Pulse Ox 98.5 F 93 20 139/85 H 96 04/11/19 09:00 04/11/19 08:21 04/11/19 09:00 04/11/19 08:21 04/11/19 09:00 - Diagnostic Test Radiology reviewed: Image reviewed, Reports reviewed Discharge - Discharge Clinical Impression: Lumbar strain Qualifiers: Encounter type: initial encounter Qualified Code(s): S39.012A - Strain of muscle, fascia and tendon of lower back, initial encounter Condition: Stable Disposition: HOME, SELF-CARE Instructions: Low Back Pain ([facility]), Warm Packs ([facility]), Pain Medication Injection ([facility]) Additional Instructions: Please follow-up with pain management as scheduled Forms: Return to Work Referrals: ROCHELLE PUCKETT MD [Primary Care Provider] - Follow up as needed
--- NOTE | 2019-04-11 11:58 | RADIOLOGY REPORT (SQ) ---
EXAM DESCRIPTION: L SPINE 2 VIEWS COMPLETED DATE/TIME: 04/11/2019 11:34 am REASON FOR STUDY: pain COMPARISON: None. NUMBER OF VIEWS: 3 views. TECHNIQUE: AP and lateral and spot L5-S1 radiographic images acquired of the lumbar spine. LIMITATIONS: None. FINDINGS: MINERALIZATION: Normal. SEGMENTATION: Normal. No transitional anatomy. ALIGNMENT: Normal. VERTEBRAE: Maintained height. No fracture or worrisome bone lesion. DISCS: Disc space narrowing at L2-L3 with endplate sclerosis along the superior endplate of L3. Mild disc space narrowing at L5-S1 as well. POSTERIOR ELEMENTS: Pedicles and facets are intact. No pars defect or posterior arch defects. HARDWARE: None in the spine. PARASPINAL SOFT TISSUES: Normal. PELVIS: Intact as visualized. No fractures or worrisome bone lesions. SI joints intact. OTHER: No other significant finding. IMPRESSION: Disc degenerative disease at L2-L3 and L5-S1. No acute findings. TECHNICAL DOCUMENTATION: JOB ID: [id number] [employer]- All Rights Reserved Reading location - IP/workstation name: [email or web address]
[2019-04-11] MEDS ORDERED: LIDOCAINE 4% TRANSPARENT DRESSING 5 GM KIT TP ONE (12:12)
[2019-04-11] MEDS ORDERED: LIDOCAINE 5% (700 MG) TRANSDERMAL ADH..PATCH TP ONE (12:23)
[2019-04-11 12:34] VITALS: BP 124/75
== END 2019-04-11 12:34 | disposition home or self-care (01) ==
LOC: ER 08:15
DX: S39.012A Strain of muscle, fascia and tendon of lower back, initial encounter (principal); W06.XXXA Fall from bed, initial encounter; F17.200 Nicotine dependence, unspecified, uncomplicated; I10 Essential (primary) hypertension; E11.9 Type 2 diabetes mellitus without complications; G89.29 Other chronic pain; M54.5 Low back pain; Z90.710 Acquired absence of both cervix and uterus
CPT/HCPCS: 72100; J1170; J3490; 96372; 99283

== ENCOUNTER 2019-08-02 21:47 | Emergency (ER) | payer MEDICAID ==
[2019-08-02 22:59] LABS: ABSOLUTE BASOPHILS # (AUTO) 0.1 10^3/uL (0.0-0.2); ABSOLUTE EOSINOPHILS # (AUTO) 0.1 10^3/uL (0.0-0.6); ABSOLUTE LYMPHOCYTES (AUTO) 3.6 10^3/uL (0.5-4.7); ABSOLUTE MONOCYTES (AUTO) 0.5 10^3/uL (0.1-1.4); ABSOLUTE NEUT (AUTO) 3.8 10^3/uL (1.7-8.2); BASOPHILS % (AUTO) 0.8 % (0-2); EOSINOPHILS % (AUTO) 1.2 % (0-6); HEMATOCRIT 43.2 % (36.0-47.0); HEMOGLOBIN 15.3 g/dL (12.0-15.5); LYMPHOCYTES % (AUTO) 44.8 % (13-45); MEAN CORPUSCULAR HEMOGLOBIN 34.2 pg (27.0-33.4); MEAN CORPUSCULAR HGB CONC 35.4 g/dL (32.0-36.0); MEAN CORPUSCULAR VOLUME 97 fl (80-97); MONOCYTES % (AUTO) 5.9 % (3-13); PLATELET COUNT 191 10^3/uL (150-450); RED BLOOD COUNT 4.46 10^6/uL (3.72-5.28); RED CELL DISTRIBUTION WIDTH 12.7 % (11.5-14.0); SEGMENTED NEUTROPHILS % (AUTO) 47.3 % (42-78); TOTAL CELLS COUNTED % (AUTO) 100 %
[2019-08-02] MEDS ORDERED: MORPHINE SULFATE 10 MG/ML INJ IV ONE (23:36)
[2019-08-02] MEDS ORDERED: ONDANSETRON HCL INJ/PF 4 MG/2 ML SDV IV ONE (23:36)
[2019-08-02] MEDS ORDERED: NORMAL SALINE 1000 ML 1,000 ML IV ONE (23:36)
--- NOTE | 2019-08-02 23:37 | ER Document Report ---
ED GI/ - General Chief Complaint: Flank Pain Stated Complaint: URINARY PROBLEM, RIGHT FLANK PAIN Time Seen by Provider: 08/02/19 23:25 Primary Care Provider: ROCHELLE PUCKETT MD [Primary Care Provider] - Follow up as needed Notes: Patient is a 54-year-old female that comes emergency department for chief complaint of intermittent lower abdominal pain which has been mild for several days, however over the past few hours she has developed pain along her right side and right flank which is worsening. She states today she also developed nausea. She has also had some painful urination and urinary frequency. She denies vomiting, fever, current abdominal pain. She states she passed a kidney stone many years ago. She has had a hysterectomy, C-sections, has a history of hypertension, type 2 diabetes, anxiety/depression, fibromyalgia. TRAVEL OUTSIDE OF THE [place] IN LAST 30 DAYS: No - Related Data Allergies/Adverse Reactions: ciprofloxacin [From Cipro] Allergy (Verified 04/11/19 09:00) gabapentin [Gabapentin] Allergy (Verified 04/11/19 09:00) ketorolac tromethamine [From Toradol] Allergy (Verified 04/11/19 09:00) pregabalin [From Lyrica] Allergy (Verified 04/11/19 09:00) tramadol Adverse Reaction (Verified 04/11/19 09:00) Past Medical History - General Information source: Patient - Social History Smoking Status: Current Every Day Smoker Frequency of alcohol use: None Drug Abuse: None Lives with: Family Family History: Reviewed & Not Pertinent Patient has suicidal ideation: No Patient has homicidal ideation: No - Past Medical History Cardiac Medical History: Reports: Hx Hypertension Endocrine Medical History: Reports: Hx Diabetes Mellitus Type 2 Musculoskeletal Medical History: Reports Hx Fibromyalgia, Reports Hx Musculoskeletal Deformity, Reports Hx Musculoskeletal Trauma Skin Medical History: Reports Hx Cellulitis Psychiatric Medical History: Reports: Hx Anxiety, Hx Depression Past Surgical History: Reports: Hx Section - x2, Hx Hysterectomy, Hx Orthopedic Surgery - Right Knee, Hx Tonsillectomy - Immunizations Immunizations up to date: Yes Hx Diphtheria, Pertussis, Tetanus Vaccination: Yes Review of Systems - Review of Systems Constitutional: No symptoms reported EENT: No symptoms reported Cardiovascular: No symptoms reported Respiratory: No symptoms reported Gastrointestinal: See HPI Genitourinary: See HPI Female Genitourinary: No symptoms reported Musculoskeletal: No symptoms reported Skin: No symptoms reported Hematologic/Lymphatic: No symptoms reported Neurological/Psychological: No symptoms reported Physical Exam - Vital signs Vitals: Temp Pulse Resp BP Pulse Ox 98.7 F 83 18 149/92 H 97 08/02/19 21:56 08/02/19 21:56 08/02/19 21:56 08/02/19 21:56 08/02/19 21:56 - Notes Notes: GENERAL: Alert, interacts well. No acute distress. HEAD: Normocephalic, atraumatic. EYES: Pupils equal, round, and reactive to light. Extraocular movements intact. ENT: Oral mucosa moist, tongue midline. Oropharynx unremarkable. Airway patent. NECK: Full range of motion. Supple. Trachea midline. No lymphadenopathy. LUNGS: Clear to auscultation bilaterally, no wheezes, rales, or rhonchi. No respiratory distress. Non-tender chest wall. HEART: Regular rate and rhythm. No murmur ABDOMEN: There is generalized tenderness in the right mid abdomen, nonspecific, no guarding, negative McBurney's point. No rigidity or guarding. GENITOURINARY: Deferred EXTREMITIES: Moves all 4 extremities spontaneously. No edema, normal radial and dorsalis pedis pulses bilaterally. No cyanosis. BACK: No noted CVA tenderness. Nontender otherwise. No cervical, thoracic, lumbar midline tenderness. No saddle anesthesia, normal distal neurovascular exam. Moves all extremities in full range of motion. NEUROLOGICAL: Alert and oriented x3. Normal speech. Cranial nerves II through XII grossly intact. Strength 5/5 in all extremities. PSYCH: Normal affect, normal mood. SKIN: Warm, dry, normal turgor. No rashes or lesions noted. Course - Re-evaluation Re-evalutation: Patient has tenderness along the left mid to upper abdomen, no noted CVA tenderness, unremarkable vital signs. CBC, chemistry unremarkable, urinalysis also unremarkable except for glucose and elevated specific gravity. Patient was given IV fluids, pain management. On evaluation patient is well-appearing but states the pain is starting to come back. Because of the area of pain ultrasound performed, however this does not show hydronephrosis, suspected passing stone, cholelithiasis, or any acute findings. Discussed results with patient. Based on her current pain management, location of pain, reassuring examination, and reassuring work-up I do suspect this is bowel. I did discuss recommendations for this, provided with medications to help treat this, discussed follow-up and return precautions. Discussed return precautions for signs of acute abdomen but I do have a low suspicion of this. Patient states understanding and agreement with plan. Smiling, stable, well-appearing at time of discharge. - Vital Signs Vital signs: Temp Pulse Resp BP Pulse Ox 98.7 F 83 18 149/92 H 97 08/02/19 21:56 08/02/19 21:56 08/02/19 21:56 08/02/19 21:56 08/03/19 02:00 - Laboratory Result Diagrams: 08/02/19 22:40 08/03/19 00:54 Laboratory results interpreted by me: 08/02/19 08/02/19 08/03/19 22:40 23:42 00:54 MCH 34.2 H Anion Gap 4 L BUN 28 H Glucose 165 H Total Protein 6.2 L Urine Glucose (UA) >=500 H Discharge - Discharge Clinical Impression: Right sided abdominal pain, Flank pain Condition: Stable Disposition: HOME, SELF-CARE Additional Instructions: Your work-up is reassuring, I believe your pain is coming from your bowel. I recommend that you drink 1/4 to 1/2 of the magnesium citrate, then if after several hours you do not have a bowel movement (or symptoms continue) drink another 1/4 to half. Continue your stool softener. Take bentyl for cramping, take the carafate, take phenergan for nauseaif needed. Make sure you eat plenty of vegetables, fruits, fiber. Improve your hydration. If symptoms continue fo llow-up with primary care/gastroenterology referral. Come back if you worsen including vomiting, fever, severe worsening pain, black stools, vomiting blood, or any other concerning or worsening symptoms. Prescriptions: Dicyclomine HCl [Bentyl 20 mg Tablet] 20 mg PO QID PRN #20 tablet PRN Reason: Sucralfate [Carafate 1 gm Tablet] 1 gm PO QID #20 tablet Promethazine HCl [Phenergan 25 mg Tablet] 25 mg PO Q6H PRN #20 tablet PRN Reason: Referrals: ROCHELLE PUCKETT MD [Primary Care Provider] - Follow up as needed
[2019-08-02 23:55] LABS: APPEARANCE,URINE CLEAR; BILIRUBIN,URINE NEGATIVE (NEGATIVE); COLOR,URINE STRAW; GLUCOSE, URINE >=500 mg/dL (NEGATIVE); KETONES,URINE NEGATIVE (NEGATIVE); LEUKOCYTE ESTERASE,URINE NEGATIVE (NEGATIVE); NITRITE,URINE NEGATIVE (NEGATIVE); PROTEIN,URINE NEGATIVE (NEGATIVE); URINE SPECIFIC GRAVITY 1.026; UROBILINOGEN,URINE NEGATIVE mg/dL (<2.0)
[2019-08-03 01:17] LABS: ALBUMIN 3.6 g/dL (3.5-5.0); ALKALINE PHOSPHATASE 61 U/L (38-126); ASPARTATE AMINO TRANSFERASE 15 U/L (14-36); BILIRUBIN,TOTAL 0.2 mg/dL (0.2-1.3); BLOOD UREA NITROGEN 28 mg/dL (7-20); CALCIUM 8.9 mg/dL (8.4-10.2); CARBON DIOXIDE 29 mmol/L (22-30); GLUCOSE 165 mg/dL (75-110); POTASSIUM 3.7 mmol/L (3.6-5.0); TOTAL PROTEIN 6.2 g/dL (6.3-8.2)
[2019-08-03 01:22] LABS: CHLORIDE 105 mmol/L (98-107)
[2019-08-03 01:24] LABS: ANION GAP 4 (5-19)
[2019-08-03] MEDS ORDERED: MORPHINE SULFATE 10 MG/ML INJ IV ONE ×2 (01:30→04:12)
--- NOTE | 2019-08-03 03:53 | RADIOLOGY REPORT (SQ) ---
EXAM DESCRIPTION: US ABDOMEN LIMITED COMPLETED DATE/TME: 08/03/2019 01:29 CLINICAL HISTORY: 54 years Female, right mid/upper abd and flank pain Comparison: None. LIMITATIONS: Bowel gas artifact. FINDINGS: Gallbladder, negative sonographic Daniel's test, mild hepatic steatosis, a 0.2-cm diameter common bile duct, no intrahepatic ductal dilation, hepatopetal patent flow of the portal vein, 11-cm right kidney, partially obscured pancreas, visualized vasculature/abdominal aorta, and no significant ascites appear otherwise unremarkable. IMPRESSION: No acute findings. Hepatic steatosis.
[2019-08-03] MEDS ORDERED: MAGNESIUM CITRATE 296 ML BOTTLE PO ONE (04:12)
[2019-08-03 05:13] VITALS: BP 147/82
== END 2019-08-03 05:15 | disposition home or self-care (01) ==
LOC: ER 21:47
DX: R10.30 Lower abdominal pain, unspecified (principal); R11.0 Nausea; R30.0 Dysuria; F17.200 Nicotine dependence, unspecified, uncomplicated; I10 Essential (primary) hypertension; E11.9 Type 2 diabetes mellitus without complications; Z88.3 Allergy status to other anti-infective agents; Z90.710 Acquired absence of both cervix and uterus
CPT/HCPCS: 96376; 99284; 96361; 96374; 96375; 36415; 83690; 85025; 80053; 81001; 76705; J3490; J2270; J2405; J7030

== ENCOUNTER 2019-12-11 14:01 | Emergency (ER) | payer MEDICAID ==
--- NOTE | 2019-12-11 14:58 | ER Document Report ---
ED Medical Screen (RME) - General Chief Complaint: Arm Injury Stated Complaint: ARM INFECTION Time Seen by Provider: 12/11/19 14:55 Primary Care Provider: ROCHELLE PUCKETT MD [Primary Care Provider] - Follow up as needed Mode of Arrival: Ambulatory Information source: Patient Notes: 54-year-old female presented to ED for swelling redness and inflammation to the left forearm. She states she was bit by a bug at some point she is not sure what day and then about 4 5 days ago she looked it up on the Internet and it said to try to draw the swelling out so she poked it with a needle. She states the next day it became very red swollen and painful. She states that is been about 3 to 4 days ago and now she had some nausea but no fever. She states she has not done anything else to it but when she started feeling nauseated and not feeling very well she thought maybe she should come to the emergency room. She states she has had frequent cellulitis in the past. She states she also has a history of diabetes high blood pressure fibromyalgia C-sections hysterectomy right knee surgery and a tonsillectomy. She states she does smoke a pack a day does not use any alcohol or illicit drugs. She is alert oriented respirations regular nonlabored speaking in full sentences. The area is very tender to the touch down to the wrist. I have greeted and performed a rapid initial assessment of this patient. A comprehensive ED assessment and evaluation of the patient, analysis of test results and completion of medical decision making process will be conducted by an additional ED providers. TRAVEL OUTSIDE OF THE [place] IN LAST 30 DAYS: No - Related Data Allergies/Adverse Reactions: ciprofloxacin [From Cipro] Allergy (Verified 04/11/19 09:00) gabapentin [Gabapentin] Allergy (Verified 04/11/19 09:00) ketorolac tromethamine [From Toradol] Allergy (Verified 04/11/19 09:00) pregabalin [From Lyrica] Allergy (Verified 04/11/19 09:00) tramadol Adverse Reaction (Verified 04/11/19 09:00) Past Medical History - Past Medical History Cardiac Medical History: Reports: Hx Hypertension Endocrine Medical History: Reports: Hx Diabetes Mellitus Type 2 Musculoskeltal Medical History: Reports Hx Fibromyalgia, Reports Hx Musculoskeletal Deformity, Reports Hx Musculoskeletal Trauma Skin Medical History: Reports Hx Cellulitis Psychiatric Medical History: Reports: Hx Anxiety, Hx Depression Past Surgical History: Reports: Hx Section - x2, Hx Hysterectomy, Hx Orthopedic Surgery - Right Knee, Hx Tonsillectomy - Immunizations Immunizations up to date: Yes Hx Diphtheria, Pertussis, Tetanus Vaccination: Yes Physical Exam - Vital signs Vitals: Temp Pulse Resp BP Pulse Ox 98.3 F 70 16 147/71 H 99 12/11/19 14:16 12/11/19 14:16 12/11/19 14:16 12/11/19 14:16 12/11/19 14:16 Course - Vital Signs Vital signs: Temp Pulse Resp BP Pulse Ox 98.3 F 70 16 147/71 H 99 12/11/19 14:16 12/11/19 14:16 12/11/19 14:16 12/11/19 14:16 12/11/19 14:16 Doctor's Discharge - Discharge Referrals: ROCHELLE PUCKETT MD [Primary Care Provider] - Follow up as needed
[2019-12-11] MEDS ORDERED: HYDROCODONE/ACETAMINOPHEN 5-325 MG TABLET PO ONE (15:21)
--- NOTE | 2019-12-11 15:48 | RADIOLOGY REPORT (SQ) ---
EXAM DESCRIPTION: FOREARM LEFT COMPLETED DATE/TIME: 12/11/2019 3:39 pm REASON FOR STUDY: Wound infection redness swelling COMPARISON: None. NUMBER OF VIEWS: Two views. TECHNIQUE: Two radiographic images acquired of the left forearm, including elbow and wrist in at [facility] one projection. LIMITATIONS: None. FINDINGS: MINERALIZATION: Normal. BONES: No acute fracture. No worrisome bone lesions. SOFT TISSUES: Diffuse soft tissue swelling most marked dorsally. No underlying bony abnormalities. OTHER: No other significant finding. IMPRESSION: Soft tissue swelling. TECHNICAL DOCUMENTATION: JOB ID: [id number] 2010 [employer]- All Rights Reserved Reading location - IP/workstation name: [email or web address]
[2019-12-11 16:30] LABS: ALBUMIN 4.1 g/dL (3.5-5.0); ALKALINE PHOSPHATASE 62 U/L (38-126); ANION GAP 6 (5-19); ASPARTATE AMINO TRANSFERASE 21 U/L (14-36); BILIRUBIN,TOTAL 0.6 mg/dL (0.2-1.3); BLOOD UREA NITROGEN 20 mg/dL (7-20); CALCIUM 9.3 mg/dL (8.4-10.2); CARBON DIOXIDE 30 mmol/L (22-30); CHLORIDE 101 mmol/L (98-107); GLUCOSE 188 mg/dL (75-110); POTASSIUM 4.1 mmol/L (3.6-5.0); TOTAL PROTEIN 7.1 g/dL (6.3-8.2)
[2019-12-11 16:38] LABS: ABSOLUTE LYMPHOCYTES (AUTO) 1.7 10^3/uL (0.5-4.7); ABSOLUTE MONOCYTES (AUTO) 0.4 10^3/uL (0.1-1.4); ABSOLUTE NEUT (AUTO) 5.4 10^3/uL (1.7-8.2); BASOPHILS % (AUTO) 0.2 % (0-2); EOSINOPHILS % (AUTO) 0.4 % (0-6); HEMATOCRIT 43.4 % (36.0-47.0); LYMPHOCYTES % (AUTO) 22.8 % (13-45); MEAN CORPUSCULAR HEMOGLOBIN 32.7 pg (27.0-33.4); MEAN CORPUSCULAR HGB CONC 34.5 g/dL (32.0-36.0); MEAN CORPUSCULAR VOLUME 95 fl (80-97); MONOCYTES % (AUTO) 5.1 % (3-13); PLATELET COUNT 187 10^3/uL (150-450); RED BLOOD COUNT 4.57 10^6/uL (3.72-5.28); RED CELL DISTRIBUTION WIDTH 13.4 % (11.5-14.0); SEGMENTED NEUTROPHILS % (AUTO) 71.5 % (42-78); TOTAL CELLS COUNTED % (AUTO) 100 %; WHITE BLOOD COUNT 7.5 10^3/uL (4.0-10.5)
[2019-12-11] MEDS ORDERED: OXYCODONE-ACETAMINOPHEN 5-325 MG TABLET PO ONE (16:47)
--- NOTE | 2019-12-11 16:47 | ER Document Report ---
ED Skin Rash/Insect Bite/Abscs - General Chief Complaint: Abscess Stated Complaint: ARM INFECTION Time Seen by Provider: 12/11/19 14:55 Primary Care Provider: ROCHELLE PUCKETT MD [Primary Care Provider] - Follow up as needed Mode of Arrival: Ambulatory Information source: Patient Notes: 54-year-old female patient presents emergency department chief complaint of p ossible abscess to her left forearm. Patient reports this is been there for several days, she states it started as an insect bite. She reports she poked it with a needle and some drainage came out. Patient reports history of multiple abscesses and cellulitis in the past. Patient is not sure if she has had fever or chills. TRAVEL OUTSIDE OF THE [place] IN LAST 30 DAYS: No - HPI Patient complains to provider of: Tender/swollen area - Left forearm - Related Data Allergies/Adverse Reactions: ciprofloxacin [From Cipro] Allergy (Verified 04/11/19 09:00) gabapentin [Gabapentin] Allergy (Verified 04/11/19 09:00) ketorolac tromethamine [From Toradol] Allergy (Verified 04/11/19 09:00) pregabalin [From Lyrica] Allergy (Verified 04/11/19 09:00) tramadol Adverse Reaction (Verified 04/11/19 09:00) Past Medical History - General Information source: Patient - Social History Smoking Status: Current Every Day Smoker Frequency of alcohol use: None Drug Abuse: None Family History: Reviewed & Not Pertinent - Past Medical History Cardiac Medical History: Reports: Hx Hypertension Endocrine Medical History: Reports: Hx Diabetes Mellitus Type 2 Musculoskeletal Medical History: Reports Hx Fibromyalgia, Reports Hx Mus culoskeletal Deformity, Reports Hx Musculoskeletal Trauma Skin Medical History: Reports Hx Cellulitis, Reports Other - Recurrent abscess Psychiatric Medical History: Reports: Hx Anxiety, Hx Depression Past Surgical History: Reports: Hx Section - x2, Hx Hysterectomy, Hx Orthopedic Surgery - Right Knee, Hx Tonsillectomy - Immunizations Immunizations up to date: Yes Hx Diphtheria, Pertussis, Tetanus Vaccination: Yes Review of Systems - Review of Systems Constitutional: No symptoms reported EENT: No symptoms reported Cardiovascular: No symptoms reported Respiratory: No symptoms reported Gastrointestinal: No symptoms reported Genitourinary: No symptoms reported Female Genitourinary: No symptoms reported Musculoskeletal: No symptoms reported Skin: See HPI Hematologic/Lymphatic: No symptoms reported Neurological/Psychological: No symptoms reported Physical Exam - Vital signs Vitals: Temp Pulse Resp BP Pulse Ox 98.3 F 70 16 147/71 H 99 12/11/19 14:16 12/11/19 14:16 12/11/19 14:16 12/11/19 14:16 12/11/19 14:16 - Notes Notes: PHYSICAL EXAMINATION: GENERAL: Well-appearing, well-nourished and in no acute distress. HEAD: Atraumatic, normocephalic. EYES: Pupils equal round and reactive to light, extraocular movements intact, conjunctiva are normal. ENT: Nares patent, oropharynx clear without exudates. Moist mucous membranes. NECK: Normal range of motion, supple without lymphadenopathy LUNGS: Breath sounds clear to auscultation bilaterally and equal. No wheezes rales or rhonchi. HEART: Regular rate and rhythm without murmurs ABDOMEN: Soft, nontender, nondistended abdomen. No guarding, no rebound. No masses appreciated. Female : deferred Musculoskeletal: Normal range of motion, no pitting or edema. No cyanosis. NEUROLOGICAL: Cranial nerves grossly intact. Normal speech, normal gait. Normal sensory, motor exams PSYCH: Normal mood, normal affect. SKIN: Area of erythema with induration and fluctuance noted to left forearm. Course - Re-evaluation Re-evalutation: Patient's labs were reassuring. Patient has not had a fever. Her abscess was incised and drained, packing was placed. A moderate amount of purulent drainage was received. I feel at this time it would be appropriate to trial the patient on outpatient antibiotics. Strict ED return precautions were discussed. The area was outlined with surgical marker. She will return to the emergency department with any new or worsening symptoms. She will have packing removed within 2 days. She does have a follow-up appointment with her primary care provider tomorrow. - Vital Signs Vital signs: Temp Pulse Resp BP Pulse Ox 98.6 F 72 16 148/69 H 100 12/11/19 19:00 12/11/19 19:00 12/11/19 19:00 12/11/19 19:00 12/11/19 19:00 - Laboratory Result Diagrams: 12/11/19 15:49 12/11/19 15:49 Laboratory results interpreted by me: 12/11/19 12/11/19 12/11/19 15:49 15:49 15:49 ESR 64 H Sodium 136.8 L Glucose 188 H C-Reactive Protein 80.1 H Discharge - Discharge Clinical Impression: Abscess Cellulitis Qualifiers: Site of cellulitis: extremity Site of cellulitis of extremity: upper extremity Laterality: left Qualified Code(s): L03.114 - Cellulitis of left upper limb Condition: Stable Disposition: HOME, SELF-CARE Additional Instructions: You were seen for an abscess with cellulitis that required drainage. Please clean this area with soap and water twice daily and apply a topical antibiotic. Dress the area after each cleaning. Take antibiotics exactly as prescribed. Finish the entire course even if you are better. Please return if you develop fever, vomiting, the pain at the site worsens, you notice spreading redness from the area More than 2 cm outside of the surgical marking p, or you have any other symptoms that are concerning to you. Prescriptions: Sulfamethoxazole/Trimethoprim [Bactrim Ds Tablet] 1 tab PO BID #14 tablet Cephalexin [Keflex] 500 mg PO QID #28 capsule Forms: Return to Work Referrals: ROCHELLE PUCKETT MD [Primary Care Provider] - Follow up as needed
[2019-12-11] MEDS ORDERED: MORPHINE SULFATE 10 MG/ML INJ IM ONE (18:28)
[2019-12-11] MEDS ORDERED: CEPHALEXIN 500 MG CAPSULE PO ONE (18:31)
[2019-12-11] MEDS ORDERED: SULFAMETHOXAZOLE/TRIMETHOPRIM 800-160 MG TABLET PO ONE (18:31)
[2019-12-11 21:48] VITALS: BP 148/69
== END 2019-12-11 19:05 | disposition home or self-care (01) ==
LOC: ER 14:01
DX: L02.91 Cutaneous abscess, unspecified (principal); L03.114 Cellulitis of left upper limb; F17.200 Nicotine dependence, unspecified, uncomplicated; I10 Essential (primary) hypertension; E11.9 Type 2 diabetes mellitus without complications; Z88.1 Allergy status to other antibiotic agents; Z88.6 Allergy status to analgesic agent; Z88.8 Allergy status to other drugs, medicaments and biological substances
CPT/HCPCS: 99284; 96372; 36415; 87040; 85025; 85652; 86140; 80053; 73090; 10060; J2270; J3490